=== PATIENT | female | born 1980 | race Caucasian/White ===

== ENCOUNTER 2020-08-17 16:29 | Emergency (ER) | payer OTHER ==
[2020-08-17 16:39] VITALS: BP 154/90; PULSE 100; RESP 18; TEMP 98
--- NOTE | 2020-08-17 16:45 | ED ---
General Adult HPI - General Chief complaint: Recheck/Abnormal Lab/Rx Stated complaint: ETOH Time Seen by Provider: 08/17/20 16:32 Source: patient, police, EMS, RN notes reviewed Mode of arrival: EMS Limitations: no limitations - History of Present Illness Initial comments: Patient is an intoxicated 39-year-old female presenting to the emergency department with [place] police for clearance for prison. Patient apparently was run around negative trying to break into her boyfriend store. Patient did complain of some shoulder discomfort. Upon questioning patient does admit to having some discomfort there. Patient is offered x-rays however refuses. Patient denies any head injury or loss of consciousness. Patient does admit to drinking alcohol. - Related Data Allergies Allergy/AdvReac Type Severity Reaction Status Date / Time No Known Allergies Allergy Verified 08/17/20 16:36 Review of Systems ROS Statement: Those systems with pertinent positive or pertinent negative responses have been documented in the HPI. ROS Other: All systems not noted in ROS Statement are negative. Constitutional: Denies: fever Eyes: Denies: eye pain ENT: Denies: ear pain Respiratory: Denies: cough Cardiovascular: Denies: chest pain Endocrine: Denies: fatigue Gastrointestinal: Denies: abdominal pain Genitourinary: Denies: dysuria Musculoskeletal: Reports: as per HPI. Denies: back pain Skin: Denies: rash Neurological: Denies: weakness Past Medical History Past Medical History: No Reported History History of Any Multi-Drug Resistant Organisms: None Reported Past Surgical History: No Surgical Hx Reported Past Psychological History: Anxiety, Depression Smoking Status: Unknown if ever smoked Past Alcohol Use History: Abuse, Daily, Heavy Past Drug Use History: None Reported General Exam Limitations: no limitations General appearance: alert, in no apparent distress, appears intoxicated Head exam: Present: atraumatic, normocephalic Eye exam: Present: normal appearance, PERRL, EOMI, nystagmus Neck exam: Present: normal inspection. Absent: tenderness Respiratory exam: Present: normal lung sounds bilaterally Cardiovascular Exam: Present: regular rate, normal rhythm GI/Abdominal exam: Present: soft. Absent: tenderness Extremities exam: Present: full ROM, tenderness (Mild tenderness right anterior shoulder without swelling. Distally the extremity is intact) Neurological exam: Present: alert, CN II-XII intact. Absent: motor sensory deficit Psychiatric exam: Present: normal affect, normal mood Skin exam: Present: normal color Course Vital Signs 08/17/20 16:36 Temperature 98 F Pulse Rate 100 Respiratory 18 Rate Blood Pressure 154/90 O2 Sat by Pulse 97 Oximetry Medical Decision Making - Medical Decision Making Patient reevaluated and sitting up at bedside. Officers do request clearance for prison. Disposition Clinical Impression: Alcohol intoxication, Shoulder injury Disposition: HOME SELF-CARE Condition: Stable Instructions (If sedation given, give patient instructions): Abuse of Alcohol (ED), Alcohol Intoxication (ED) Additional Instructions: Discharged to police custody. Return for change in mental status, shoulder problems, worsening or changing symptoms or other concerns. Is patient prescribed a controlled substance at d/c from ED?: No Referrals: Mars Huggins MD [REFERRING] - 1-2 days Time of Disposition: 16:50
== END 2020-08-17 17:00 | disposition home or self-care (01) ==
LOC: EC 16:29
DX: Z02.89 Encounter for other administrative examinations (principal); F10.129 Alcohol abuse with intoxication, unspecified; S49.91XA Unspecified injury of right shoulder and upper arm, initial encounter; X58.XXXA Exposure to other specified factors, initial encounter; Y90.9 Presence of alcohol in blood, level not specified
CPT/HCPCS: 99284

== ENCOUNTER 2020-10-16 03:02 | Inpatient (IN) | payer MEDICARE, OTHER ==
[2020-10-16] MEDS ORDERED: LORazepam 2 MG/ML INJ IV STA (03:07)
[2020-10-16 03:33] LABS: Anisocytosis Slight; Basophils # (A) 0.1 k/uL (0-0.2); Basophils % (A) 1 %; Eosinophils # (A) 0.2 k/uL (0-0.7); Eosinophils % (A) 2 %; HCT 30.4 % (34.0-46.0); HGB 9.1 gm/dL (11.4-16.0); Hypochromasia Marked; Lymphocytes # (A) 1.7 k/uL (1.0-4.8); Lymphocytes % (A) 21 %; MCH 23.2 pg (25.0-35.0); MCV 77.2 fL (80.0-100.0); Mean Platelet Volume 8.3; Microcytosis Slight; Monocytes # (A) 0.4 k/uL (0-1.0); Monocytes % (A) 4 %; Neutrophils # (A) 5.8 k/uL (1.3-7.7); Neutrophils % (A) 71 %; Platelet Count 116 k/uL (150-450); RBC 3.94 m/uL (3.80-5.40); RDW 18.2 % (11.5-15.5); WBC 8.2 k/uL (3.8-10.6)
[2020-10-16 03:38] LABS: AST 79 U/L (14-36); African American GFR (CKD) >90 (>60 ml/min/1.73 sqM); Albumin 4.2 g/dL (3.5-5.0); Alkaline Phosphatase 70 U/L (38-126); Anion Gap 16 mmol/L; Blood Urea Nitrogen 4 mg/dL (7-17); Calcium 8.8 mg/dL (8.4-10.2); Carbon Dioxide 13 mmol/L (22-30); Chloride 105 mmol/L (98-107); Glucose 139 mg/dL (74-99); Non-African American GFR(CKD) >90 (>60 ml/min/1.73 sqM); Potassium 3.8 mmol/L (3.5-5.1); Sodium 134 mmol/L (137-145); Total Bilirubin 0.3 mg/dL (0.2-1.3); Total Protein 7.3 g/dL (6.3-8.2)
[2020-10-16 03:44] LABS: ALT 49 U/L (4-34); INR 0.9 (<1.2); Prothrombin Time 9.9 sec (9.0-12.0)
--- NOTE | 2020-10-16 03:44 | CT ---
EXAM: CT Head Without Intravenous Contrast CLINICAL HISTORY: ITS.REASON CT Reason: trauma TECHNIQUE: Axial computed tomography images of the head/brain without intravenous contrast. CTDI is 12.985 mGy and DLP is 426.35 mGy-cm. This CT exam was performed using one or more of the following dose reduction techniques: automated exposure control, adjustment of the mA and/or kV according to patient size, and/or use of iterative reconstruction technique. COMPARISON: none available FINDINGS: Brain: Unremarkable. No hemorrhage. No significant white matter disease. No edema. Ventricles: Unremarkable. No ventriculomegaly. Bones/joints: Unremarkable. No acute fracture. Soft tissues: Right frontal scalp subcutaneous swelling measuring up to 6mm in thickness. Sinuses: Unremarkable as visualized. No acute sinusitis. Mastoid air cells: Unremarkable as visualized. No mastoid effusion. IMPRESSION: 1. No acute intracranial hemorrhage, herniation or hydrocephalus. 2. Right frontal scalp soft tissue swelling measuring up to 6mm in thickness. No calvarial fractures. No skull base fractures.
[2020-10-16 03:45] LABS: Partial Thromboplastin Time 20.8 sec (22.0-30.0)
--- NOTE | 2020-10-16 03:48 | CT ---
EXAM: CT Maxillofacial Without Intravenous Contrast CLINICAL HISTORY: ITS.REASON CT Reason: trauma TECHNIQUE: Axial computed tomography images of the face without intravenous contrast. CTDI is 12.985 mGy and DLP is 426.35 mGy-cm. This CT exam was performed using one or more of the following dose reduction techniques: automated exposure control, adjustment of the mA and/or kV according to patient size, and/or use of iterative reconstruction technique. COMPARISON: none available FINDINGS: Bones/joints: No acute facial fractures. No mandibular fractures. Bilateral temporomandibular joints are intact with no evidence of subluxation or dislocation. Pterygoid plates, zygomatic arches, maxillary jack are intact. Soft tissues: Unremarkable. Orbits: Orbits and globes are normal in appearance. No orbital wall fracture. Sinuses: Unremarkable. No air-fluid levels. IMPRESSION: No acute facial fractures.
[2020-10-16] MEDS ORDERED: SODIUM CHLORIDE 0.9% 1,000 ML IV ONE (04:02)
[2020-10-16] MEDS ORDERED: LORazepam 2 MG/ML INJ IV PRN (04:02)
[2020-10-16] MEDS ORDERED: THIAMINE 100 MG/ML 2 ML VIAL IM STA (04:02)
[2020-10-16] MEDS ORDERED: NALOXONE 0.4 MG/ML 1 ML VIAL IV PRN (05:52)
--- NOTE | 2020-10-16 05:52 | ED ---
Seizure HPI - General Chief Complaint: Seizure Stated Complaint: seizure Time Seen by Provider: 10/16/20 03:07 Source: patient, EMS Mode of arrival: EMS Limitations: altered mental status - History of Present Illness Initial Comments: This patient is a 39-year-old woman brought by ambulance to be evaluated for suspected alcohol withdrawal seizures. The patient reportedly drinks 25 12 ounce beers per day. She is staying with her boyfriend and they have been trying to wean her alcohol consumption back. The patient reportedly developed generalized tonic-clonic seizure lasting approximately 4 minutes and they called EMS. EMS arrived and the patient appeared post ictal and did have seizure in their presence. Minutes after arrival here, the patient did have another seizure. When initially seen she appears postictal not able to give any history . MD Complaint: seizure -: minutes(s) Description of Episode: loss of consciousness, tonic-clonic movement, post-event confusion -: minutes(s) Witnessed: yes - by bystander Trauma: No Seizure History: history of withdrawal seizures Place: home Possible Precipitating Event: alcohol withdrawal - Related Data Home Medications Medication Instructions Recorded Confirmed [place] Carbonate ER [Lithobid] 450 mg PO BID 10/16/20 10/16/20 PARoxetine HCL [Paxil] 30 mg PO DAILY 10/16/20 10/16/20 lamoTRIgine [LaMICtal] 150 mg PO BID 10/16/20 10/16/20 Allergies Allergy/AdvReac Type Severity Reaction Status Date / Time No Known Allergies Allergy Verified 10/16/20 07:57 Review of Systems ROS Statement: Those systems with pertinent positive or pertinent negative responses have been documented in the HPI. ROS Other: All systems not noted in ROS Statement are negative. Limitations: ROS unobtainable due to patients medical condition Constitutional: Denies: fever Respiratory: Denies: dyspnea Past Medical History Past Medical History: No Reported History History of Any Multi-Drug Resistant Organisms: None Reported Past Surgical History: No Surgical Hx Reported Past Psychological History: Anxiety, Depression Smoking Status: Unknown if ever smoked Past Alcohol Use History: Abuse, Daily, Heavy Past Drug Use History: None Reported General Exam Limitations: no limitations General appearance: obtunded Head exam: Present: other (The patient does have bilateral periorbital ecchymo sis and mild amount of swelling.) Eye exam: Present: PERRL, EOMI, periorbital swelling. Absent: scleral icterus, conjunctival injection, nystagmus ENT exam: Present: normal oropharynx, TM's normal bilaterally, normal external ear exam Neck exam: Present: normal inspection, full ROM. Absent: tenderness, meningismus Respiratory exam: Present: rhonchi, chest wall tenderness (Left-sided). Absent: respiratory distress, wheezes, rales, stridor, accessory muscle use, decreased breath sounds, prolonged expiratory Cardiovascular Exam: Present: normal rhythm, tachycardia, normal heart sounds. Absent: systolic murmur, diastolic murmur, rubs, gallop GI/Abdominal exam: Present: soft. Absent: distended, tenderness, guarding, rebound, rigid, mass Extremities exam: Present: normal inspection, normal capillary refill. Absent: pedal edema, calf tenderness Back exam: Present: normal inspection. Absent: CVA tenderness (R), CVA tenderness (L), vertebral tenderness Neurological exam: Present: altered, CN II-XII intact, reflexes normal. Absent: motor sensory deficit Skin exam: Present: warm, dry, intact, normal color. Absent: rash Course Vital Signs 10/16/20 10/16/20 10/16/20 03:05 03:48 04:24 Temperature 97.8 F Pulse Rate 129 H 124 H 130 H Respiratory 22 18 18 Rate Blood Pressure 179/100 138/87 137/91 O2 Sat by Pulse 100 94 L 99 Oximetry 10/16/20 07:31 Temperature 98.4 F Pulse Rate 98 Respiratory 16 Rate Blood Pressure 112/93 O2 Sat by Pulse 95 Oximetry Medical Decision Making - Medical Decision Making This patient is a 39-year-old woman with history of previous alcohol withdrawal seizures presenting with what appears to be generalized tonic-clonic seizure. After a period of time she has become alert and she does report that she had a fall a few days ago. She states she landed on her face. She also is having some left sided rib pain. Patient was worked up and there do appear to be left-sided rib fractures, but the patient does not district clinic. Patient is satting well. Case is discussed with trauma surgery coverage and they're okay with clearing the patient to go to medicine for alcohol withdrawal. They will be available as product safety consultant on the case should that be necessary. There is no evident intracranial or intra-abdominal injury. - Lab Data Result diagrams: 10/16/20 03:18 10/16/20 03:18 Lab Results 10/16/20 10/16/20 10/16/20 Range/Units 03:18 03:18 03:18 WBC 8.2 (3.8-10.6) k/uL RBC 3.94 (3.80-5.40) m/uL Hgb 9.1 L (11.4-16.0) gm/dL Hct 30.4 L (34.0-46.0) % MCV 77.2 L (80.0-100.0) fL MCH 23.2 L (25.0-35.0) pg MCHC 30.0 L (31.0-37.0) g/dL RDW 18.2 H (11.5-15.5) % Plt Count 116 L (150-450) k/uL MPV 8.3 Neutrophils % 71 % Lymphocytes % 21 % Monocytes % 4 % Eosinophils % 2 % Basophils % 1 % Neutrophils # 5.8 (1.3-7.7) k/uL Lymphocytes # 1.7 (1.0-4.8) k/uL Monocytes # 0.4 (0-1.0) k/uL Eosinophils # 0.2 (0-0.7) k/uL Basophils # 0.1 (0-0.2) k/uL Hypochromasia Marked Anisocytosis Slight Microcytosis Slight PT 9.9 (9.0-12.0) sec INR 0.9 (<1.2) APTT 20.8 L (22.0-30.0) sec Sodium 134 L (137-145) mmol/L Potassium 3.8 (3.5-5.1) mmol/L Chloride 105 (98-107) mmol/L Carbon Dioxide 13 L (22-30) mmol/L Anion Gap 16 mmol/L BUN 4 L (7-17) mg/dL Creatinine 0.53 (0.52-1.04) mg/dL Est GFR (CKD-EPI)AfAm >90 (>60 ml/min/1.73 sqM) Est GFR (CKD-EPI)NonAf >90 (>60 ml/min/1.73 sqM) Glucose 139 H (74-99) mg/dL Calcium 8.8 (8.4-10.2) mg/dL Total Bilirubin 0.3 (0.2-1.3) mg/dL AST 79 H (14-36) U/L ALT 49 H (4-34) U/L Alkaline Phosphatase 70 (38-126) U/L Ammonia (<30) umol/L Total Protein 7.3 (6.3-8.2) g/dL Albumin 4.2 (3.5-5.0) g/dL 10/16/20 Range/Units 03:18 WBC (3.8-10.6) k/uL RBC (3.80-5.40) m/uL Hgb (11.4-16.0) gm/dL Hct (34.0-46.0) % MCV (80.0-100.0) fL MCH (25.0-35.0) pg MCHC (31.0-37.0) g/dL RDW (11.5-15.5) % Plt Count (150-450) k/uL MPV Neutrophils % % Lymphocytes % % Monocytes % % Eosinophils % % Basophils % % Neutrophils # (1.3-7.7) k/uL Lymphocytes # (1.0-4.8) k/uL Monocytes # (0-1.0) k/uL Eosinophils # (0-0.7) k/uL Basophils # (0-0.2) k/uL Hypochromasia Anisocytosis Microcytosis PT (9.0-12.0) sec INR (<1.2) APTT (22.0-30.0) sec Sodium (137-145) mmol/L Potassium (3.5-5.1) mmol/L Chloride (98-107) mmol/L Carbon Dioxide (22-30) mmol/L Anion Gap mmol/L BUN (7-17) mg/dL Creatinine (0.52-1.04) mg/dL Est GFR (CKD-EPI)AfAm (>60 ml/min/1.73 sqM) Est GFR (CKD-EPI)NonAf (>60 ml/min/1.73 sqM) Glucose (74-99) mg/dL Calcium (8.4-10.2) mg/dL Total Bilirubin (0.2-1.3) mg/dL AST (14-36) U/L ALT (4-34) U/L Alkaline Phosphatase (38-126) U/L Ammonia <9 (<30) umol/L Total Protein (6.3-8.2) g/dL Albumin (3.5-5.0) g/dL Disposition Clinical Impression: Alcohol withdrawal seizure, Rib fractures Disposition: ADMITTED IP TO THIS HOSP Condition: Fair Is patient prescribed a controlled substance at d/c from ED?: No
[2020-10-16] MEDS: LORazepam 2 MG/ML INJ IV PRN ×3 (06:03→22:24)
[2020-10-16] MEDS: SODIUM CHLORIDE 0.9% 1,000 ML IV SCH ×3 (06:03→22:26)
[2020-10-16 06:10] LABS: Appearance,Urine Clear (Clear); Bilirubin,Urine Negative (Negative); Blood,Urine Small (Negative); Color,Urine Light Yellow; Glucose,Urine (UA) Negative (Negative); Hyaline Casts,Urine 1 /lpf (0-2); Ketones,Urine 1+ (Negative); Leukocyte Esterase,Urine Negative (Negative); Mucus,Urine Occasional /hpf; Nitrite,Urine Negative (Negative); PH, Urine 5.5 (5.0-8.0); Protein,Urine Trace (Negative); RBC,Urine <1 /hpf (0-5); Specific Gravity,Urine 1.011 (1.001-1.035); Squamous Epithelial Cell,Urine <1 /hpf (0-4); Urobilinogen,Urine <2.0 mg/dL (<2.0); WBC,Urine 1 /hpf (0-5)
[2020-10-16 06:20] LABS: Amphetamine Screen,Urine Not Detected (NotDetected); Barbiturate Screen,Urine Not Detected (NotDetected); Benzodiazepines Screen,Urine Detected (NotDetected); Cocaine Screen,Urine Not Detected (NotDetected); Methadone Screen, Urine Not Detected (NotDetected); Opiate Screen,Urine Not Detected (NotDetected); Oxycodone Screen, Urine Not Detected (NotDetected); Phencyclidine Screen,Urine Not Detected (NotDetected); Tricyclic Antidepressant,Urine Detected (NotDetected); Urn Cannabinoid Scrn Not Detected (NotDetected)
--- NOTE | 2020-10-16 06:47 | XR ---
EXAMINATION TYPE: XR ribs LT w pa chest xray DATE OF EXAM: 10/16/2020 CLINICAL HISTORY: Fall injury with chest and left-sided rib pain. TECHNIQUE: Single frontal view of the chest is obtained. A frontal and oblique images of the left-sim ed ribs. COMPARISON: None FINDINGS: There is no suspicious focal air space opacity, pleural effusion, or pneumothorax seen. T he cardiac silhouette size is within normal limits. The osseous structures are intact. Dedicated images of left-sided ribs show age-indeterminate suspected acute minimally displaced fractu re of the anterolateral left 10th rib. Remainder ribs intact. Overlying soft tissue unremarkable. IMPRESSION: 1. No acute cardiopulmonary process. 2. Age-indeterminate suspected acute minimally displaced fracture anterolateral left 10th rib, correl ate with point tenderness at this level advised.
--- NOTE | 2020-10-16 07:33 | CT ---
EXAMINATION TYPE: CT abdomen pelvis w con DATE OF EXAM: 10/16/2020 HISTORY: Trauma, alcohol withdrawal seizure CT DLP: 647mGycm Automated Exposure Control for Dose Reduction was Utilized. CONTRAST: CT scan of the abdomen and pelvis is performed without oral but with IV Contrast, patient injected wi th 100 ml mL of Isovue 300. COMPARISON: None. FINDINGS: LUNG BASES: Dependent atelectasis in both bases. LIVER/GB: Liver is heterogeneously hypodense consistent with diffuse fatty infiltration. PANCREAS: No significant abnormality is seen. SPLEEN: No significant abnormality is seen. ADRENALS: No significant abnormality is seen. KIDNEYS: Symmetric cortical medullary uptake and excretion without hydronephrosis seen bilaterally. BOWEL: No suspicious small or large bowel dilatation area UTERUS/ADNEXA: Anteverted uterus. Central metallic IUD. Symmetric-size low dense ovaries. Scattered b ilateral pelvic phleboliths. LYMPH NODES: No greater than 1cm abdominal or pelvic lymph nodes are appreciated. OSSEOUS STRUCTURES: Underlying levoconvex scoliotic curvature. Transitional-type vertebra at lumbosac ral junction. OTHER: No significant additional abnormality is seen. IMPRESSION: No significant acute posttraumatic finding.
[2020-10-16] MEDS: FAMOTIDINE 20 MG TAB PO SCH ×2 (08:46→22:21)
--- NOTE | 2020-10-16 11:00 | P.HPIM ---
History of Present Illness H&P Date: 10/16/20 Chief Complaint: Seizures Patient is a 39-year-old female with a known history of severe alcohol abuse, anxiety/depression/bipolar disorder who was taking antidepressants previously was brought to the hospital due to suspected alcohol withdrawal seizures. Apparently patient has been drinking about 25 Beer cans on daily basis. Patient has been trying to detox herself. Patient otherwise says that she is taking her antidepressants. EMS was called and she developed generalized tonic-clonic seizures. Patient had episode of generalized tonic-clonic seizure in the ER. P atient was postictal in the ER. Currently more awake and oriented. Apparently patient had a fall about 2 days ago due to intoxication and had right eye ecchymosis and bump on her right forehead. Denied any complaints of headache. No complaints of nausea vomiting. No complains of neck pain. No fever no chills. Denied any recent illnesses. Denied any recent illnesses. Laboratory data showed WBC 8.2, hemoglobin 9.1 and platelets 116 and MCV 77.2 Sodium 134, potassium 3.8, bicarb is 13 BN 4) 0.53, AST 79, AST 49 and alk phos 70 UDS is positive for tricyclic antidepressants and benzodiazepines., CT head showed no acute intracranial hemorrhage. Right frontal scalp soft tissue swelling measuring up to 6 mm in thickness. radial fractures. no skull base fractures. ct face showed no acute facial fractures. tube and chest x-ray showed no acute cardio pulmonary process. age indetermina te suspected acute minimally displaced fracture anterolateral left 10th rib correlate with point tenderness at this level advised. ct abdomen pelvis showed no significant acute traumatic findings. Review of Systems Constitutional: Patient denies any fever or chills . No generalized weakness or weight loss. Abdomen: Patient denied nausea vomiting and diarrhea and abdominal pain. Cardiovascular: Patient denies any chest pain or short of breath no p alpitations. Respiratory: patient denied any cough is from production. No shortness of breath. Tenderness of the left lower case. Neurologic: Patient denied any numbness or tingling headache. Musculoskeletal: Patient denies any complaints of joint swelling or deformity. Skin: Negative Psychiatric: Denied any suicidal ideation. Anxious. Endocrine: No heat or cold intolerance. No recent weight gain. Genitourinary: No dysuria or hematuria. All other 14 point ROS negative except the above Past Medical History Past Medical History: No Reported History History of Any Multi-Drug Resistant Organisms: None Reported Past Surgical History: No Surgical Hx Reported Past Anesthesia/Blood Transfusion Reactions: No Reported Reaction Past Psychological History: Anxiety, Depression Smoking Status: Unknown if ever smoked Past Alcohol Use History: Abuse, Daily, Heavy Past Drug Use History: None Reported - Past Family History Father Family Medical History: Unable to Obtain Mother Family Medical History: Unable to Obtain Medications and Allergies Home Medications Medication Instructions Recorded Confirmed Type [place] Carbonate ER [Lithobid] 450 mg PO BID 10/16/20 10/16/20 History PARoxetine HCL [Paxil] 30 mg PO DAILY 10/16/20 10/16/20 History clonazePAM [KlonoPIN] 1 mg PO BID PRN 10/16/20 10/16/20 History lamoTRIgine [LaMICtal] 150 mg PO BID 10/16/20 10/16/20 History Allergies Allergy/AdvReac Type Severity Reaction Status Date / Time No Known Allergies Allergy Verified 10/16/20 07:57 Physical Exam Vitals: Vital Signs Temp Pulse Pulse Resp BP BP Pulse Ox 10/16/20 09:49 122/91 10/16/20 08:00 98.6 F 94 14 132/106 98 10/16/20 07:31 98.4 F 98 16 112/93 95 10/16/20 04:24 130 H 18 137/91 99 10/16/20 03:48 124 H 18 138/87 94 L 10/16/20 03:05 97.8 F 129 H 22 179/100 100 Intake and Output 10/15/20 10/16/20 10/16/20 22:59 06:59 14:59 Intake Total 0 Balance 0 Intake: Oral 0 Other: Weight 81.647 kg 81.647 kg PHYSICAL EXAMINATION: Patient is lying in the bed comfortably, no acute distress, awake alert and oriented. Patient is lethargic and drowsy.. HEENT: Normocephalic. Neck is supple. Pupils reactive. Nostrils clear. Oral cavity is moist. Ears reveal no drainage. Patient does have right eye ecchymosis and soft tissue swelling over the right forehead. Neck reveals no JVD, carotid bruits, or thyromegaly. CHEST EXAMINATION: Trachea is central. Symmetrical expansion. Bibasilar diminished air entry. No wheezing no crackles. Tenderness over the left lower rib cage.. CARDIAC: Normal S1, S2 with no gallops. No murmurs ABDOMEN: Soft. Bowel sounds normal. No organomegaly. No abdominal bruits. Extremities: reveal no edema. No clubbing or cyanosis Neurologically awake, alert, oriented x3 with well-coordinated movements. Drowsy. No focal deficits noted Skin: No rash or skin lesions. Psychiatric: Coperative. Nonsuicidal Musculoskeletal: No joint swelling or deformity. Normal range of motion. Results CBC & Chem 7: 10/16/20 03:18 10/16/20 03:18 Labs: Abnormal Lab Results - Last 24 Hours (Table) 10/16/20 10/16/20 10/16/20 Range/Units 03:18 03:18 03:18 Hgb 9.1 L (11.4-16.0) gm/dL Hct 30.4 L (34.0-46.0) % MCV 77.2 L (80.0-100.0) fL MCH 23.2 L (25.0-35.0) pg MCHC 30.0 L (31.0-37.0) g/dL RDW 18.2 H (11.5-15.5) % Plt Count 116 L (150-450) k/uL APTT 20.8 L (22.0-30.0) sec Sodium 134 L (137-145) mmol/L Carbon Dioxide 13 L (22-30) mmol/L BUN 4 L (7-17) mg/dL Glucose 139 H (74-99) mg/dL AST 79 H (14-36) U/L ALT 49 H (4-34) U/L Urine Protein (Negative) Urine Ketones (Negative) Urine Blood (Negative) Urine Mucus (None) /hpf U Tricyclic Antidepress (NotDetected) U Benzodiazepines Scrn (NotDetected) 10/16/20 Range/Units 05:58 Hgb (11.4-16.0) gm/dL Hct (34.0-46.0) % MCV (80.0-100.0) fL MCH (25.0-35.0) pg MCHC (31.0-37.0) g/dL RDW (11.5-15.5) % Plt Count (150-450) k/uL APTT (22.0-30.0) sec Sodium (137-145) mmol/L Carbon Dioxide (22-30) mmol/L BUN (7-17) mg/dL Glucose (74-99) mg/dL AST (14-36) U/L ALT (4-34) U/L Urine Protein Trace H (Negative) Urine Ketones 1+ H (Negative) Urine Blood Small H (Negative) Urine Mucus Occasional H (None) /hpf U Tricyclic Antidepress Detected H (NotDetected) U Benzodiazepines Scrn Detected H (NotDetected) Thrombosis Risk Factor Assmnt - DVT/VTE Prophylaxis DVT/VTE Prophylaxis: Pharmacologic Prophylaxis ordered - Choose All That Apply Any of the Below Risk Factors Present?: Yes Each Factor Represents 1 point: Age 41-60 years, Obesity (BMI >25) Thrombosis Risk Factor Assessment Total Risk Factor Score: 2 Thrombosis Risk Factor Assessment Level: Low Risk Assessment and Plan Assessment: acute alcohol withdrawal seizures-generalized tonic-clonic. Severe alcohol abuse on daily basis. Status post fall and minimally displaced fracture anterolateral left 10th rib age indeterminate. Mild and gap metabolic acidosis Mild transaminitis/alcoholic hepatitis Microcytic anemia rule out iron deficiency Thrombocytopenia secondary to alcohol abuse Anxiety/depression/bipolar disorder DVT prophylaxis with heparin subcu Plan: Patient be continued on IV hydration and thiamine and multivitamins. Seizures and fall precautions. Monitor for alcohol withdrawal symptoms. Patient will be started back on home medications and follow closely. We'll check iron profile, vitamin B12 and TSH level due t0 anemia. Follow up closely and further recommendations based on the clinical course. Follow-up CBC and CMP tomorrow. Time with Patient: Greater than 30
[2020-10-16] MEDS ORDERED: SODIUM CHLORIDE 0.9% 1,000 ML with MVI, ADULT NO.4 WITH VIT K 10 ML, THIAMINE 100 MG, F... IV ONE ×4 (11:02)
[2020-10-16] MEDS: FOLIC ACID 1 MG TAB PO SCH (11:12)
[2020-10-16] MEDS: THIAMINE 100 MG TAB PO SCH (12:32)
[2020-10-16] MEDS: HEPARIN SODIUM,PORCINE 5,000 UNIT/ML 1 ML VIAL SQ SCH ×2 (14:43→22:34)
[2020-10-16] MEDS ORDERED: KETOROLAC 15 MG/ML 1 ML VIAL IVP STA (15:44)
[2020-10-16] MEDS ORDERED: ONDANSETRON 4 MG/2 ML VIAL IVP PRN (15:45)
[2020-10-17] MEDS: THIAMINE 100 MG TAB PO SCH ×2 (06:15→17:19)
[2020-10-17] MEDS: SODIUM CHLORIDE 0.9% 1,000 ML IV SCH ×3 (06:15→22:03)
[2020-10-17 08:20] LABS: African American GFR (CKD) >90 (>60 ml/min/1.73 sqM); Anion Gap 5 mmol/L; Blood Urea Nitrogen 2 mg/dL (7-17); Carbon Dioxide 22 mmol/L (22-30); Chloride 109 mmol/L (98-107); Glucose 75 mg/dL (74-99); Non-African American GFR(CKD) >90 (>60 ml/min/1.73 sqM); Potassium 3.3 mmol/L (3.5-5.1); Sodium 136 mmol/L (137-145)
[2020-10-17] MEDS: FOLIC ACID 1 MG TAB PO SCH (08:31)
[2020-10-17] MEDS: LORazepam 2 MG/ML INJ IV PRN ×3 (08:31→20:02)
[2020-10-17] MEDS: FAMOTIDINE 20 MG TAB PO SCH ×2 (08:31→20:03)
[2020-10-17] MEDS: HEPARIN SODIUM,PORCINE 5,000 UNIT/ML 1 ML VIAL SQ SCH ×3 (08:37→23:39)
[2020-10-17 08:42] LABS: Anisocytosis Slight; Basophils % (A) 1 %; Eosinophils # (A) 0.2 k/uL (0-0.7); Eosinophils % (A) 6 %; HGB 8.3 gm/dL (11.4-16.0); Hypochromasia Marked; Lymphocytes # (A) 0.7 k/uL (1.0-4.8); Lymphocytes % (A) 21 %; MCH 22.9 pg (25.0-35.0); MCHC 29.8 g/dL (31.0-37.0); MCV 76.9 fL (80.0-100.0); Mean Platelet Volume 9.3; Microcytosis Slight; Monocytes # (A) 0.1 k/uL (0-1.0); Monocytes % (A) 4 %; Neutrophils # (A) 2.4 k/uL (1.3-7.7); Neutrophils % (A) 68 %; RBC 3.65 m/uL (3.80-5.40); RDW 18.2 % (11.5-15.5); WBC 3.5 k/uL (3.8-10.6)
[2020-10-17 09:04] LABS: Platelet Count 96 k/uL (150-450); Poikilocytosis (M) Present
[2020-10-17] MEDS: METOPROLOL TARTRATE 25 MG TAB PO SCH ×2 (11:37→20:09)
--- NOTE | 2020-10-17 12:49 | P.PN ---
Subjective 39-year-old female with a known history of severe alcohol abuse, anxiety/depression/bipolar disorder who was taking antidepressants previously was brought to the hospital due to suspected alcohol withdrawal seizures. Apparently patient has been drinking about 25 Beer cans on daily basis. Patient has been trying to detox herself. Patient otherwise says that she is taking her antidepressants. EMS was called and she developed generalized tonic-clonic seizures. Patient had episode of generalized tonic-clonic seizure in the ER. Patient was postictal in the ER. Currently more awake and oriented. Apparently patient had a fall about 2 days ago due to intoxication and had right eye ecchymosis and bump on her right forehead. Denied any complaints of headache. No complaints of nausea vomiting. No complains of neck pain. No fever no chi lls. Denied any recent illnesses. Denied any recent illnesses. Laboratory data showed WBC 8.2, hemoglobin 9.1 and platelets 116 and MCV 77.2 Sodium 134, potassium 3.8, bicarb is 13 BN 4) 0.53, AST 79, AST 49 and alk phos 70 UDS is positive for tricyclic antidepressants and benzodiazepines., CT head showed no acute intracranial hemorrhage. Right frontal scalp soft tissue swelling measuring up to 6 mm in thickness. radial fractures. no skull base fractures. ct face showed no acute facial fractures. tube and chest x-ray showed no acute cardio pulmonary process. age indeterminate suspected acute minimally displaced fracture anterolateral left 10th rib correlate with point tenderness at this level advised. ct abdomen pelvis showed no significant acute traumatic findings. 10/17/2019 Patient received Ativan today morning. Although doesn't have significant alcohol withdrawals. Considering his seizures I want to monitor 1 more night for alcohol withdrawals and the patient is not requiring sick Ativan patient will be discharged tomorrow. Patient has some elevated blood abnormalities and those will be replaced patient is tachycardic probably because of alcohol withdrawals and the patient was started on low-dose of metoprolol as clonidine will drop her blood pressure which is normal now. TSH is be within normal limits. Patient feels much better. Constitutional: Denied any fatigue denied any fever. Cardio vascular: denied any chest pain, palpitations Gastrointestinal denied any nausea vomiting Pulmonary: Denied any shortness of breath cough Neurologic denied any new focal deficits All inpatient medications were reviewed and appropriate changes in these medications as dictated in the interval history and assessment and plan. Objective - Vital Signs Vital signs: Vital Signs Temp 98.6 F 10/17/20 11:45 Pulse 84 10/17/20 11:45 Resp 16 10/17/20 11:45 BP 143/91 10/17/20 11:45 Pulse Ox 97 10/17/20 11:45 Intake & Output 10/16/20 10/17/20 10/17/20 18:59 06:59 18:59 Intake Total 1000 Balance 1000 Weight 81.647 kg 61.4 kg Intake: IV 1000 Sodium Chloride 0.9% 1, 1000 000 ml @ 125 mls/hr IV . Q8H [facility] Rx#:[id number] Oral 0 Other: Voiding Method Toilet Toilet # Voids 1 # Bowel Movements 0 - Exam PHYSICAL EXAMINATION: GENERAL: The patient is alert and oriented x3, not in any acute distress. Well developed, well nourished. HEENT: Pupils are round and equally reacting to light. EOMI. No scleral icterus. No conjunctival pallor. She and has racoon because of her fall and patient had a scalp injury as well. No pharyngeal erythema. No thyromegaly. CARDIOVASCULAR: S1 and S2 present. No murmurs, rubs, or gallops. PULMONARY: Chest is clear to auscultation, no wheezing or crackles. ABDOMEN: Soft, nontender, nondistended, normoactive bowel sounds. No palpable organomegaly. MUSCULOSKELETAL: No joint swelling or deformity. EXTREMITIES: No cyanosis, clubbing, or pedal edema. NEUROLOGICAL: Gross neurological examination did not reveal any focal deficits. SKIN: No rashes. - Labs CBC & Chem 7: 10/17/20 07:11 10/17/20 07:11 Labs: Abnormal Lab Results - Last 24 Hours (Table) 10/17/20 10/17/20 Range/Units 07:11 07:11 WBC 3.5 L (3.8-10.6) k/uL RBC 3.65 L (3.80-5.40) m/uL Hgb 8.3 L (11.4-16.0) gm/dL Hct 28.0 L (34.0-46.0) % MCV 76.9 L (80.0-100.0) fL MCH 22.9 L (25.0-35.0) pg MCHC 29.8 L (31.0-37.0) g/dL RDW 18.2 H (11.5-15.5) % Plt Count 96 L (150-450) k/uL Lymphocytes # 0.7 L (1.0-4.8) k/uL Sodium 136 L (137-145) mmol/L Potassium 3.3 L (3.5-5.1) mmol/L Chloride 109 H (98-107) mmol/L BUN 2 L (7-17) mg/dL Creatinine 0.46 L (0.52-1.04) mg/dL Calcium 8.0 L (8.4-10.2) mg/dL Assessment and Plan Plan: acute alcohol withdrawal seizures-generalized tonic-clonic. Severe alcohol abuse on daily basis. Status post fall and minimally displaced fracture anterolateral left 10th rib age indeterminate. Mild and gap metabolic acidosis secondary to alcohol abuse Mild transaminitis/alcoholic hepatitis Microcytic anemia rule out iron deficiency Thrombocytopenia and pancytopenia secondary to alcohol abuse Anxiety/depression/bipolar disorder DVT prophylaxis with heparin subcu Plan: Patient be continued on IV hydration and thiamine and multivitamins. Seizures and fall precautions. Monitor for alcohol withdrawal symptoms. Patient will be started back on home medications and follow closely. We'll check iron profile, vitamin B12 level due t0 anemia. Pending TSH is within normal limits. Patient will be monitored for 1 more night. Patient is still requiring Ativan.
[2020-10-17 15:09] LABS: % Iron Saturation 11.43 (12.00-45.00); Iron 40 ug/dL (50-170); Total Iron Binding Capacity 350 ug/dL (228-460)
[2020-10-17 15:18] LABS: Ferritin 23.7 ng/mL (10.0-291.0)
[2020-10-17] MEDS: chlordiazePOXIDE 25 MG CAP PO SCH ×2 (15:42→20:03)
[2020-10-17] MEDS: lamoTRIgine 25 MG TAB PO SCH ×2 (15:42→20:03)
[2020-10-17 16:33] VITALS: RESP 18
--- NOTE | 2020-10-17 16:35 | P.CN ---
Psychiatric Consult - . Consult date: 10/17/20 Consult:: 10/17/20 13:51 IDENTIFYING DATA: This patient is a 39-year-old female with a chronic history of alcohol use disorder and bipolar disorder, who currently lives in an apartment is single has no kids and is unemployed. REASON FOR REFERRAL: Psychiatry was consulted for bipolar, alcohol use and patient stopping taking her meds. HISTORY OF PRESENT ILLNESS: The patient presented to the hospital for alcohol withdrawal seizures. Patient has a chronic history of bipolar disorder and alcohol use. She reported in the ER that she was drinking approximately 25 beers a day and try to "detox herself" at home however ended up having a tonic- clonic seizure and EMS was called and patient apparently had another seizure in the ER. Patient's CT head was negative for any acute hemorrhages and any fractures however did show soft scalp swelling. Patient's LFTs were mildly elevated UDS was positive for benzodiazepine TCAs and tachycardic. Patient was seen on the medical floors and is currently on [facility] protocol for alcohol withdrawal. She appeared to have bruising over her face and states that she has been feeling depressed. She claims that she is also been having anxiety due to her withdrawal from alcohol. She states that her last drink was 2 hours before she had a seizure before coming into the hospital. She states that she has been drinking a proximally 6 beers a day. She claims that she was dealing with a broken rib as well. She claims that she has been having difficulties initiating sleep and currently having mild tremors and nausea from the alcohol withdrawal however denies any other signs of DTs. She states that she ran out of her lithium however has been taking her other medications at home for psychiatric symptoms. At this time patient denies any suicidal or homical ideations, intent or plan. Patient denies any auditory, visual hallucinations and denies any paranoia or delusions. Patients admits to using alcohol as noted above. She states that she has been drinking alcohol for approximately 2 decades now and has been to rehab and outpatient programs several times. She denies any other recreational drug use denies any cigarette use. PAST PSYCHIATRIC HISTORY: Patient has a a history of bipolar disorder depression and alcohol abuse. patient claims that she has been on lithium in the past, Paxil and Klonopin. patient admitted to several psychiatric admissions in the past at different. she claims that she is to follow-up with a psychiatrist several years ago however states that he has tired since then. she claims that she has had 3 suicide including overdosing and also trying to suffocate herself in the garage with carbon monoxide. PAST MEDICAL HISTORY: anemia and fatty liver ALLERGIES: as per EMR. CHEMICAL DEPENDENCY HISTORY: as per HPI. FAMILY PSYCHIATRIC/SUBSTANCE USE HISTORY: she states that she has a strong family history of alcohol abuse. SOCIAL HISTORY: Patient was born and raised in [place], [place] and states that she attended college and completed her master's degree in business. 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 she is currently single lives in an alone and has no kids. She claims that she has had 2 DUIs in the past and also had a charge for drunk and MENTAL STATUS EXAM: General Appearance: Patient appears to be stated age is lethargic, pleasant, and attempts to be cooperative. Patient appears to have poor hygiene and grooming wearing hospital gown with [fair] eye contact. She has bruising over her eyes and forehead. Behavior: [Patient is calmly lying in bed without any agitated behavior.] timid Speech: Patient's speech is fluent and nonpressured. soft tone of voice Mood/Affect: Patient reports their mood is "depressed", affect is congruent and constricted Suicidality/Homicidality: Patient denies having any suicidal or homicidal ideation intent or plan. Perceptions: Patient denies any visual hallucinations [and denies any auditory hallucinations] Though content/process: There is no evidence of any delusional thought content and thought process is linear and goal-directed. minimizing her etoh use. Memory and concentration: AOX3, grossly intact for the purposes of this session. Can spell "WORLD" backwards Judgment and insight: [poor] IMPRESSIONS: bipolar disorder, currently depressed Alcohol use disorder, severe, currently in withdrawal PLAN: -At this time patient will continue to follow along to determine if patient would meet criteria for inpatient psych vs. outpatient treatment vs. substance use rehab. -Would recommend the following medication changes/additions: Librium 25mg bid for etoh withdrawal along with CIWA protocol and Ativan prn. Patient is agreeable to restart Lamictal 25 mg twice a day for bipolar depression/mood stabilization. can continue Paxil 30 mg nightly for mood/anxiety. Petroleum Transport Driver also offered patient naltrexone vs. acamprosate for etoh cravings however patient states that she would like to think about it overnight. -harvest worker field crop to provide patient with outpatient mental health/psychiatry resources for appropriate follow up upon discharge if patient is discharged directly from the medical floors. -Petroleum Transport Driver spoke with patient about substance abuse and the harmful effects on medical and mental health, patient verbally understood and agreed. -harvest worker field crop to provide patient substance use treatment resources including AA/NA meetings in the community. harvest worker field crop to provide patient with access line number to call for inpatient substance rehab. -Petroleum Transport Driver spoke with patient about rehab vs. outpatient treatment and patient claims that she would like to think about it overnight. -Will continue to follow along and see patient tomorrow to see if she would need to admitted to psych or can be discharged. -Please contact with any questions.
[2020-10-17] MEDS ORDERED: PARoxetine 10 MG TAB PO SCH (21:00)
[2020-10-17 21:54] VITALS: BP 141/98; PULSE 90; TEMP 98.7
--- NOTE | 2020-10-20 12:58 | P.DS ---
Providers Date of admission: 10/16/20 05:52 Expected date of discharge: 10/17/20 Attending physician: Chey Camacho Consults: 10/16/20 10:20 Consult Physician Routine Consulting Provider: Tavo Blanco Consult Reason/Comments: etoh, bipolar - stopped taking medications Do you want consulting provider notified?: Already Contacted Primary care physician: Stated None Hospital Course: Left AGAINST MEDICAL ADVICE Patient Condition at Discharge: Fair Plan - Discharge Summary Discharge Rx Participant: No New Discharge Prescriptions: No Action PARoxetine HCL [Paxil] 30 mg PO DAILY [place] Carbonate ER [Lithobid] 450 mg PO BID lamoTRIgine [LaMICtal] 150 mg PO BID clonazePAM [KlonoPIN] 1 mg PO BID PRN PRN Reason: panic attacks Discharge Medication List [place] Carbonate ER [Lithobid] 450 mg PO BID 10/16/20 [History] PARoxetine HCL [Paxil] 30 mg PO DAILY 10/16/20 [History] clonazePAM [KlonoPIN] 1 mg PO BID PRN 10/16/20 [History] lamoTRIgine [LaMICtal] 150 mg PO BID 10/16/20 [History] Follow up Appointment(s)/Referral(s): None,Stated [Primary Care Provider] - 1-2 days Discharge Disposition: Left Against Medical Advice
== END 2020-10-17 23:59 | disposition left against medical advice (07) | DRG 101 ==
LOC: EC 03:02 → 3SCARD 05:52
PROVIDERS: ADMIT Internal Medicine; ATTEND Internal Medicine
DX: G40.509 Epileptic seizures related to external causes, not intractable, without status epilepticus (principal); S22.42XA Multiple fractures of ribs, left side, initial encounter for closed fracture; F10.239 Alcohol dependence with withdrawal, unspecified; E87.2 Acidosis; D50.9 Iron deficiency anemia, unspecified; D69.59 Other secondary thrombocytopenia; K70.10 Alcoholic hepatitis without ascites; F41.9 Anxiety disorder, unspecified; F31.9 Bipolar disorder, unspecified; S05.11XA Contusion of eyeball and orbital tissues, right eye, initial encounter; Z79.899 Other long term (current) drug therapy; Z91.5 Personal history of self-harm; Z60.2 Problems related to living alone; Z88.0 Allergy status to penicillin
CPT/HCPCS: 36415; 70450; 70486; 74177; 80048; 80053; 80306; 81001; 81025; 82140; 82607; 82728; 83540; 83550; 84443; 85025; 85610; 85730; 96361; 96372; 96374; 99285

== ENCOUNTER 2020-12-06 06:09 | Observation (INO) | payer MEDICARE ==
--- NOTE | 2020-12-06 06:18 | ED ---
Altered Mental Status HPI - General Source: patient, EMS Mode of arrival: EMS Limitations: no limitations <Pérez Shea - Last Filed: 12/06/20 06:17> - History of Present Illness MD Complaint: altered mental status, decreased responsiveness <Saul Joshua - Last Filed: 12/06/20 07:37> - General Chief Complaint: Recheck/Abnormal Lab/Rx Stated Complaint: Possible Overdose Time Seen by Provider: 12/06/20 06:13 - History of Present Illness Initial Comments: This is a 41-year-old female with a known history of alcoholism who was brought in by EMS after she was found by her parents to be unresponsive. She apparently is less responsive than usual and she drinks alcohol. No trauma reported no fevers chills nausea vomiting sweats or other symptoms reported no other history is limited (Saul Joshua) - Related Data Home Medications Medication Instructions Recorded Confirmed [place] Carbonate ER [Lithobid] 450 mg PO BID 10/16/20 10/16/20 lamoTRIgine [LaMICtal] 150 mg PO BID 10/16/20 10/16/20 Escitalopram [Lexapro] 20 mg PO DAILY 12/06/20 12/06/20 clonazePAM [KlonoPIN] 2 mg PO HS 12/06/20 12/06/20 Allergies Allergy/AdvReac Type Severity Reaction Status Date / Time amoxicillin Allergy Rash/Hives Verified 12/06/20 07:34 Review of Systems ROS Other: All systems not noted in ROS Statement are negative. <Pérez Shea - Last Filed: 12/06/20 06:17> ROS Other: All systems not noted in ROS Statement are negative. Limitations: ROS unobtainable due to patients medical condition <Saul Joshua - Last Filed: 12/06/20 07:37> ROS Statement: Those systems with pertinent positive or pertinent negative responses have been documented in the HPI. Past Medical History Past Medical History: No Reported History History of Any Multi-Drug Resistant Organisms: None Reported Past Surgical History: No Surgical Hx Reported Past Anesthesia/Blood Transfusion Reactions: No Reported Reaction Past Psychological History: Anxiety, Depression Smoking Status: Unknown if ever smoked Past Alcohol Use History: Abuse, Daily, Heavy Past Drug Use History: None Reported - Past Family History Father Family Medical History: Unable to Obtain Mother Family Medical History: Unable to Obtain <Pérez Shea - Last Filed: 12/06/20 06:17> General Exam Limitations: no limitations <Pérez Shea - Last Filed: 12/06/20 06:17> General appearance: lethargic, obtunded Head exam: Present: atraumatic, normocephalic, normal inspection Eye exam: Present: normal appearance, PERRL, EOMI. Absent: scleral icterus, conjunctival injection, periorbital swelling ENT exam: Present: mucous membranes dry Neck exam: Present: normal inspection. Absent: tenderness, meningismus, lymphadenopathy Respiratory exam: Present: normal lung sounds bilaterally. Absent: respiratory distress, wheezes, rales, rhonchi, stridor Cardiovascular Exam: Present: regular rate, normal rhythm, normal heart sounds. Absent: systolic murmur, diastolic murmur, rubs, gallop, clicks GI/Abdominal exam: Present: soft, normal bowel sounds. Absent: distended, tenderness, guarding, rebound, rigid, bruit Rectal exam: Present: deferred Extremities exam: Present: normal inspection, full ROM, normal capillary refill. Absent: tenderness, pedal edema, joint swelling, calf tenderness Back exam: Present: normal inspection Neurological exam: Present: alert, altered, CN II-XII intact Psychiatric exam: Present: other (Able to fully assess at this time) Skin exam: Present: warm, dry, intact, normal color. Absent: rash <Saul Joshua - Last Filed: 12/06/20 07:37> - General Exam Comments Initial Comments: This is a well-developed female who was obtunded but did respond to painful stimuli. All of alcohol conjoiners on her breath (Saul Joshua) Course Vital Signs 12/06/20 12/06/20 12/06/20 06:10 06:40 07:04 Temperature 98.0 F Pulse Rate 99 Respiratory 15 15 16 Rate Blood Pressure 108/84 103/70 O2 Sat by Pulse 95 98 Oximetry 12/06/20 07:21 Temperature Pulse Rate 82 Respiratory 18 Rate Blood Pressure 113/96 O2 Sat by Pulse 100 Oximetry Medical Decision Making - EKG Data -: EKG Interpreted by Me EKG shows normal: sinus rhythm, axis (Normal), intervals (Prolonged QT), QRS complexes (incomplete RBBB), ST-T waves (Normal) Rate: normal (rate 99) <Pérez Shea - Last Filed: 12/06/20 06:17> - Lab Data Result diagrams: 12/06/20 06:26 12/06/20 06:26 - Radiology Data Radiology results: report reviewed (Imaging reviewed no evidence of acute findings evidence of bilateral atelectasis on the x-ray CAT scan unremarkable for acute processes), image reviewed <TresSaul - Last Filed: 12/06/20 07:37> - Medical Decision Making Patient is intoxicated with alcohol. She is demonstrated also evidence of dehydration and she'll be admitted the case was discussed with Dr. INIGUEZ. . (Saul Joshua) - Lab Data Lab Results 12/06/20 12/06/20 12/06/20 Range/Units 06:26 06:26 06:26 WBC 8.6 (3.8-10.6) k/uL RBC 4.39 (3.80-5.40) m/uL Hgb 10.0 L D (11.4-16.0) gm/dL Hct 32.1 L (34.0-46.0) % MCV 73.0 L (80.0-100.0) fL MCH 22.7 L (25.0-35.0) pg MCHC 31.1 (31.0-37.0) g/dL RDW 19.4 H (11.5-15.5) % Plt Count 285 D (150-450) k/uL MPV 6.9 Neutrophils % 54 % Lymphocytes % 34 % Monocytes % 6 % Eosinophils % 3 % Basophils % 1 % Neutrophils # 4.7 (1.3-7.7) k/uL Lymphocytes # 2.9 (1.0-4.8) k/uL Monocytes # 0.5 (0-1.0) k/uL Eosinophils # 0.2 (0-0.7) k/uL Basophils # 0.1 (0-0.2) k/uL Hypochromasia Marked Poikilocytosis Slight Anisocytosis Slight Microcytosis Moderate PT 10.2 (9.0-12.0) sec INR 0.9 (<1.2) APTT 21.6 L (22.0-30.0) sec Sodium 140 (137-145) mmol/L Potassium 5.2 H (3.5-5.1) mmol/L Chloride 104 (98-107) mmol/L Carbon Dioxide 18 L (22-30) mmol/L Anion Gap 18 mmol/L BUN 8 (7-17) mg/dL Creatinine 0.60 (0.52-1.04) mg/dL Est GFR (CKD-EPI)AfAm >90 (>60 ml/min/1.73 sqM) Est GFR (CKD-EPI)NonAf >90 (>60 ml/min/1.73 sqM) Glucose 96 (74-99) mg/dL Calcium 10.0 (8.4-10.2) mg/dL Total Bilirubin 0.3 (0.2-1.3) mg/dL AST 54 H (14-36) U/L ALT 27 (4-34) U/L Alkaline Phosphatase 56 (38-126) U/L Troponin I (0.000-0.034) ng/mL Total Protein 8.6 H (6.3-8.2) g/dL Albumin 5.1 H (3.5-5.0) g/dL Urine Color Urine Appearance (Clear) Urine pH (5.0-8.0) Ur Specific [place] (1.001-1.035) Urine Protein (Negative) Urine Glucose (UA) (Negative) Urine Ketones (Negative) Urine Blood (Negative) Urine Nitrite (Negative) Urine Bilirubin (Negative) Urine Urobilinogen (<2.0) mg/dL Ur Leukocyte Esterase (Negative) Urine Opiates Screen (NotDetected) Ur Oxycodone Screen (NotDetected) Urine Methadone Screen (NotDetected) Ur Propoxyphene Screen (NotDetected) Ur Barbiturates Screen (NotDetected) U Tricyclic Antidepress (NotDetected) Ur Phencyclidine Scrn (NotDetected) Ur Amphetamines Screen (NotDetected) U Methamphetamines Scrn (NotDetected) U Benzodiazepines Scrn (NotDetected) Urine Cocaine Screen (NotDetected) U Marijuana (THC) Screen (NotDetected) Serum Alcohol 407 H* mg/dL 12/06/20 12/06/20 12/06/20 Range/Units 06:26 06:37 06:37 WBC (3.8-10.6) k/uL RBC (3.80-5.40) m/uL Hgb (11.4-16.0) gm/dL Hct (34.0-46.0) % MCV (80.0-100.0) fL MCH (25.0-35.0) pg MCHC (31.0-37.0) g/dL RDW (11.5-15.5) % Plt Count (150-450) k/uL MPV Neutrophils % % Lymphocytes % % Monocytes % % Eosinophils % % Basophils % % Neutrophils # (1.3-7.7) k/uL Lymphocytes # (1.0-4.8) k/uL Monocytes # (0-1.0) k/uL Eosinophils # (0-0.7) k/uL Basophils # (0-0.2) k/uL Hypochromasia Poikilocytosis Anisocytosis Microcytosis PT (9.0-12.0) sec INR (<1.2) APTT (22.0-30.0) sec Sodium (137-145) mmol/L Potassium (3.5-5.1) mmol/L Chloride (98-107) mmol/L Carbon Dioxide (22-30) mmol/L Anion Gap mmol/L BUN (7-17) mg/dL Creatinine (0.52-1.04) mg/dL Est GFR (CKD-EPI)AfAm (>60 ml/min/1.73 sqM) Est GFR (CKD-EPI)NonAf (>60 ml/min/1.73 sqM) Glucose (74-99) mg/dL Calcium (8.4-10.2) mg/dL Total Bilirubin (0.2-1.3) mg/dL AST (14-36) U/L ALT (4-34) U/L Alkaline Phosphatase (38-126) U/L Troponin I <0.012 (0.000-0.034) ng/mL Total Protein (6.3-8.2) g/dL Albumin (3.5-5.0) g/dL Urine Color Colorless Urine Appearance Clear (Clear) Urine pH 6.0 (5.0-8.0) Ur Specific [place] 1.003 (1.001-1.035) Urine Protein Negative (Negative) Urine Glucose (UA) Negative (Negative) Urine Ketones Negative (Negative) Urine Blood Negative (Negative) Urine Nitrite Negative (Negative) Urine Bilirubin Negative (Negative) Urine Urobilinogen <2.0 (<2.0) mg/dL Ur Leukocyte Esterase Negative (Negative) Urine Opiates Screen Not Detected (NotDetected) Ur Oxycodone Screen Not Detected (NotDetected) Urine Methadone Screen Not Detected (NotDetected) Ur Propoxyphene Screen Not Detected (NotDetected) Ur Barbiturates Screen Not Detected (NotDetected) U Tricyclic Antidepress Detected H (NotDetected) Ur Phencyclidine Scrn Not Detected (NotDetected) Ur Amphetamines Screen Not Detected (NotDetected) U Methamphetamines Scrn Not Detected (NotDetected) U Benzodiazepines Scrn Not Detected (NotDetected) Urine Cocaine Screen Not Detected (NotDetected) U Marijuana (THC) Screen Not Detected (NotDetected) Serum Alcohol mg/dL Disposition <Pérez Shea - Last Filed: 12/06/20 06:17> <Saul Joshua - Last Filed: 12/06/20 07:37> Clinical Impression: Acute alcohol intoxication, Dehydration, Anemia Disposition: ADMITTED IP TO THIS [facility] Condition: Fair Referrals: None,Stated [Primary Care Provider] - 1-2 days
[2020-12-06] MEDS ORDERED: NALOXONE 0.4 MG/ML 1 ML VIAL IVP STA (06:23)
[2020-12-06 06:35] LABS: Anisocytosis Slight; Basophils # (A) 0.1 k/uL (0-0.2); Basophils % (A) 1 %; Eosinophils # (A) 0.2 k/uL (0-0.7); Eosinophils % (A) 3 %; HCT 32.1 % (34.0-46.0); Hypochromasia Marked; Lymphocytes # (A) 2.9 k/uL (1.0-4.8); Lymphocytes % (A) 34 %; MCH 22.7 pg (25.0-35.0); MCHC 31.1 g/dL (31.0-37.0); Mean Platelet Volume 6.9; Microcytosis Moderate; Monocytes # (A) 0.5 k/uL (0-1.0); Monocytes % (A) 6 %; Neutrophils # (A) 4.7 k/uL (1.3-7.7); Neutrophils % (A) 54 %; Poikilocytosis Slight; RBC 4.39 m/uL (3.80-5.40); RDW 19.4 % (11.5-15.5); WBC 8.6 k/uL (3.8-10.6)
[2020-12-06 06:47] LABS: ALT 27 U/L (4-34); AST 54 U/L (14-36); African American GFR (CKD) >90 (>60 ml/min/1.73 sqM); Albumin 5.1 g/dL (3.5-5.0); Alkaline Phosphatase 56 U/L (38-126); Anion Gap 18 mmol/L; Blood Urea Nitrogen 8 mg/dL (7-17); Carbon Dioxide 18 mmol/L (22-30); Chloride 104 mmol/L (98-107); Glucose 96 mg/dL (74-99); Non-African American GFR(CKD) >90 (>60 ml/min/1.73 sqM); Potassium 5.2 mmol/L (3.5-5.1); Sodium 140 mmol/L (137-145); Total Bilirubin 0.3 mg/dL (0.2-1.3); Total Protein 8.6 g/dL (6.3-8.2)
[2020-12-06 06:53] LABS: Platelet Count 285 k/uL (150-450)
[2020-12-06 06:55] LABS: Appearance,Urine Clear (Clear); Bilirubin,Urine Negative (Negative); Blood,Urine Negative (Negative); Color,Urine Colorless; Glucose,Urine (UA) Negative (Negative); Ketones,Urine Negative (Negative); Leukocyte Esterase,Urine Negative (Negative); Nitrite,Urine Negative (Negative); Protein,Urine Negative (Negative); Specific Gravity,Urine 1.003 (1.001-1.035); Urobilinogen,Urine <2.0 mg/dL (<2.0)
[2020-12-06 07:01] LABS: INR 0.9 (<1.2); Prothrombin Time 10.2 sec (9.0-12.0)
--- NOTE | 2020-12-06 07:03 | XR ---
EXAMINATION TYPE: XR chest 1V portable DATE OF EXAM: 12/06/2020 COMPARISON: Chest x-ray October 16, 2020 HISTORY: Unresponsive. Weakness. TECHNIQUE: Single AP portable frontal view of the chest is obtained. FINDINGS: There is diminished inspiration with patchy bibasilar opacity. The cardiac silhouette siz e is stable and within normal limits. The osseous structures are intact. Overlying EKG leads. IMPRESSION: Diminished inspiration with patchy bibasilar atelectasis suspected.
[2020-12-06 07:05] LABS: Partial Thromboplastin Time 21.6 sec (22.0-30.0)
[2020-12-06 07:13] LABS: Alcohol 407 mg/dL
[2020-12-06 07:17] LABS: Cocaine Screen,Urine Not Detected (NotDetected); Phencyclidine Screen,Urine Not Detected (NotDetected); Urn Cannabinoid Scrn Not Detected (NotDetected)
[2020-12-06 07:18] LABS: Amphetamine Screen,Urine Not Detected (NotDetected); Barbiturate Screen,Urine Not Detected (NotDetected); Benzodiazepines Screen,Urine Not Detected (NotDetected); Methadone Screen, Urine Not Detected (NotDetected); Opiate Screen,Urine Not Detected (NotDetected); Oxycodone Screen, Urine Not Detected (NotDetected); Tricyclic Antidepressant,Urine Detected (NotDetected)
--- NOTE | 2020-12-06 07:18 | CT ---
EXAMINATION TYPE: CT brain wo con DATE OF EXAM: 12/06/2020 COMPARISON: CT brain October 16, 2020 HISTORY: Altered mental status CT DLP: 1055.4 mGycm. Automated Exposure Control for Dose Reduction was Utilized. TECHNIQUE: CT scan of the head is performed without contrast. FINDINGS: There is no acute intracranial hemorrhage or midline shift identified. Mild to moderate v entricular and sulcal prominence somewhat prominent for patient's age. The globes are intact and the visualized sinuses are clear. IMPRESSION: No acute intracranial hemorrhage or midline shift is seen. [id number] diffuse atro phy. No significant change from prior CT.
[2020-12-06] MEDS ORDERED: LORazepam 2 MG/ML INJ IV PRN ×3 (07:23)
[2020-12-06] MEDS ORDERED: THIAMINE 100 MG/ML 2 ML VIAL IM STA (07:23)
[2020-12-06] MEDS ORDERED: SODIUM CHLORIDE 0.9% 1,000 ML IV STA (07:26)
[2020-12-06] MEDS ORDERED: NALOXONE 0.4 MG/ML 1 ML VIAL IV PRN ×2 (07:37→09:33)
[2020-12-06] MEDS ORDERED: SODIUM CHLORIDE 0.9% 1,000 ML IV SCH (07:45)
[2020-12-06] MEDS ORDERED: SODIUM CHLORIDE 0.9% 1,000 ML with MVI, ADULT NO.4 WITH VIT K 10 ML, THIAMINE 100 MG, F... IV ONE ×4 (07:45)
[2020-12-06] MEDS ORDERED: ONDANSETRON 4 MG/2 ML VIAL IVP PRN (07:54)
[2020-12-06] MEDS: DEXTROSE 5%-0.45% NACL 2,000 ML IV SCH (08:10)
[2020-12-06] MEDS ORDERED: PANTOPRAZOLE 40 MG/10 ML VIAL IVP SCH (09:00)
[2020-12-06] MEDS ORDERED: ACETAMINOPHEN TAB 325 MG TAB PO PRN (09:33)
[2020-12-06] MEDS: HEPARIN SODIUM,PORCINE 5,000 UNIT/ML 1 ML VIAL SQ SCH ×2 (09:57→23:42)
[2020-12-06 12:53] LABS: Glucose,Whole Blood 94 mg/dL (75-99)
--- NOTE | 2020-12-06 13:43 | P.HPIM ---
History of Present Illness H&P Date: 12/06/20 Chief Complaint: alcohol intoxication History of presenting illness: Patient is a 40-year-old female with a past medical history of bipolar disorder and EtOH abuse. Patient presented to the emergency department via EMS after being found by her parents to be unresponsive. Information obtained per ED documentation, attempts made to call patient's mother (Joselyn Francois) were unsuccessful as phone number on file is invalid. Patient received a full workup in emergency department and was found to have significant alcohol intoxication with serum alcohol level of 407. CT head negative for acute process. Chest x- ray revealing diminished inspiration with patchy by basilar atelectasis. Urinalysis negative. Urine drug screen positive for tricyclics. EKG was normal sinus rhythm and 99 bpm with no noted T-wave or ST abnormality showing no signs of acute ischemia. BMP revealed mild hyperkalemia with potassium of 5.2 otherwise unremarkable. CBC revealed microcytic microchromic anemia with a hemoglobin of 10.0, hematocrit 32.1, MCV 73.0, MCH 22.7, MCHC of 31.1, and RDW of 19.4. Liver profile revealed slight elevation of AST at 54 and hypoalbuminemia with albumin of 5.1. [place] level of 1.1. Patient admitted under our services for alcohol intoxication. Upon assessment, patient was obtunded sleeping heavily and required sternal rub for awakening. Upon awakening, pt would sit up and mumble words but speech was significantly slurred. There was a strong scent of EtOH. Per documentation in chart, patient's daily medications consist of Klonopin, Lexapro, Lamictal, and lithium. Review of systems: Unable to complete full ROS secondary to patient's altered mentation with c urrent obtunded state. Physical exam: General: Patient obtunded, awoken via sternal rub. Patient was able to sit up in the bed on her own and her gag reflex is intact. Derm: warm, dry Head: atraumatic, normocephalic, symmetric Eyes: Pupils equal, round, and reactive at 5 mm to 4 mm. Anicteric sclera Mouth: No lip or tongue lesions noted, mucus membranes moist, gag reflex intact Cardiovascular: S1S2 normal with regular rate and rhythm. No murmur, positive posterior tibial pulses bilaterally. Lungs: Respirations even, regular, and unlabored on room air. Lungs clear to auscultation bilaterally. No accessory muscle use noted. Abdominal: Soft, nontender to palpation, no guarding, no appreciable organomegaly Ext: no gross muscle atrophy, no edema, no contractures Neuro: Patient obtunded only awakening via sternal rub. Upon awakening patient following simple commands as she sat up to allow provider to listen to lungs and rolled onto her side when she was asked. Patient's speech slurred. Strong EtOH scent. Psych: Obtunded Assessment and Plan of Care: Toxic Encephalopathy -Believed to be resulting from acute alcohol intoxication vs misuse/abuse of daily medications such as Klonopin. -CT head negative for acute intercranial process. -Urine drug screen positive for tricyclics. -Serum alcohol 407 -Currently obtunded, awoken only via sternal rub. -Continue neuro checks every 4 hours and as needed. -Seizure, fall, and aspiration precautions in place. -[place] levels therapeutic at 1.1. EtOH intoxication -Serum alcohol 407. -CIWA protocol with symptom triggered medication management with Ativan. -Neuro checks every 4 hours and as needed. -Seizure precautions, fall precautions, and aspiration precautions to remain in place. -Continue with generous rehydration with D5 0.45 125 mL's per hour. -Thiamine 100 mg twice daily. Hyperkalemia -Potassium 5.2. -Continue hydration with IV fluids. -Repeat with a.m. labs . Bipolar disorder -Patient has a history of bipolar disorder and daily medication regimen consists of Klonopin, Lexapro, Lamictal, and lithium. -[place] levels therapeutic at 1.1. -Medications being held at this time secondary to patient's obtunded state. Microcytic microchromic anemia, stable -Appears chronic in nature, 10/16/20 hemoglobin was 9.9 and 10/17/20 and hemoglobin was 8.3. No previous labs available prior to this year. The patient is admitted with an anticipated greater than 2 midnight stay for evaluation of toxic encephalopathy with acute alcohol intoxication. CODE STATUS: Full code by default, patient obtunded and unable to discuss secondary to current state, made attempts at contacting patient's mother, however phone number documented in chart was no longer valid. DVT prophylaxis: Heparin Discussed with: RN Anticipated discharge date: Clinical course to determine Anticipated discharge place: Home A total of 45 minutes was spent on the care of this complex patient more than 50% of the time was spent in counseling and care coordination. Past Medical History Past Medical History: No Reported History History of Any Multi-Drug Resistant Organisms: None Reported Past Surgical History: No Surgical Hx Reported Past Anesthesia/Blood Transfusion Reactions: No Reported Reaction Past Psychological History: Anxiety, Depression Smoking Status: Unknown if ever smoked Past Alcohol Use History: Abuse, Daily, Heavy Past Drug Use History: None Reported - Past Family History Father Family Medical History: Unable to Obtain Mother Family Medical History: Unable to Obtain Medications and Allergies Home Medications Medication Instructions Recorded Confirmed Type [place] Carbonate ER [Lithobid] 450 mg PO BID 10/16/20 12/06/20 History lamoTRIgine [LaMICtal] 150 mg PO BID 10/16/20 12/06/20 History Escitalopram [Lexapro] 20 mg PO DAILY 12/06/20 12/06/20 History clonazePAM [KlonoPIN] 2 mg PO HS 12/06/20 12/06/20 History Allergies Allergy/AdvReac Type Severity Reaction Status Date / Time amoxicillin Allergy Rash/Hives Verified 12/06/20 07:34 Physical Exam Vitals: Vital Signs Temp Pulse Resp BP Pulse Ox 12/06/20 07:21 82 18 113/96 100 12/06/20 07:04 16 103/70 98 12/06/20 06:40 15 12/06/20 06:10 98.0 F 99 15 108/84 95 Intake and Output 12/05/20 12/06/20 12/06/20 22:59 06:59 14:59 Other: Weight 68.039 kg Results CBC & Chem 7: 12/06/20 06:26 12/06/20 06:26 Labs: Abnormal Lab Results - Last 24 Hours (Table) 12/06/20 12/06/20 12/06/20 Range/Units 06:26 06:26 06:26 Hgb 10.0 L D (11.4-16.0) gm/dL Hct 32.1 L (34.0-46.0) % MCV 73.0 L (80.0-100.0) fL MCH 22.7 L (25.0-35.0) pg RDW 19.4 H (11.5-15.5) % APTT 21.6 L (22.0-30.0) sec Potassium 5.2 H (3.5-5.1) mmol/L Carbon Dioxide 18 L (22-30) mmol/L AST 54 H (14-36) U/L Total Protein 8.6 H (6.3-8.2) g/dL Albumin 5.1 H (3.5-5.0) g/dL U Tricyclic Antidepress (NotDetected) Serum Alcohol 407 H* mg/dL 12/06/20 Range/Units 06:37 Hgb (11.4-16.0) gm/dL Hct (34.0-46.0) % MCV (80.0-100.0) fL MCH (25.0-35.0) pg RDW (11.5-15.5) % APTT (22.0-30.0) sec Potassium (3.5-5.1) mmol/L Carbon Dioxide (22-30) mmol/L AST (14-36) U/L Total Protein (6.3-8.2) g/dL Albumin (3.5-5.0) g/dL U Tricyclic Antidepress Detected H (NotDetected) Serum Alcohol mg/dL
[2020-12-06 17:33] VITALS: RESP 18
[2020-12-06] MEDS: THIAMINE 100 MG TAB PO SCH (18:10)
[2020-12-07] MEDS: DEXTROSE 5%-0.45% NACL 2,000 ML IV SCH (04:42)
[2020-12-07 04:53] VITALS: BP 98/65; PULSE 88; TEMP 99.6
[2020-12-07] MEDS: HEPARIN SODIUM,PORCINE 5,000 UNIT/ML 1 ML VIAL SQ SCH ×2 (08:23→08:25)
[2020-12-07] MEDS: THIAMINE 100 MG TAB PO SCH (08:23)
[2020-12-07 09:44] LABS: African American GFR (CKD) 123.9 (60.0-200.0); BUN/Creat Ratio 15.71 Ratio (12.00-20.00); Calcium 8.5 mg/dL (8.7-10.3); Magnesium 1.8 mg/dL (1.5-2.4); Non-African American GFR(CKD) 106.9 (60.0-200.0); Potassium 3.8 mmol/L (3.5-5.5)
--- NOTE | 2020-12-07 13:06 | P.DS ---
Providers Date of admission: 12/06/20 07:37 Expected date of discharge: 12/07/20 Attending physician: Aleisha Bonilla Primary care physician: Stated None Hospital Course: Discharge Diagnosis: Acute alcohol intoxication Alcohol abuse Alcoholic gastritis Toxic metabolic encephalopathy Iron deficiency anemia Hyperkalemia, resolved Bipolar disorder Hospital Course: Patient is a 40-year-old female with a history of bipolar disorder and alcohol abuse who presented to the emergency department via EMS after being found by her parents unresponsive. The ER she was found have significant alcohol intoxication with serum alcohol level CDVII. CT was negative for acute process. Chest x-ray revealed diminished inspiration. Urine drug screen was positive for tricyclics. She was subsequently admitted secondary to her lethargy and confusion. She was monitored overnight. She was awake alert and oriented by the morning of 12/07/20. She denied any suicidal or homicidal ideation and feels as though her mood is at baseline. She denied wanted to go to rehab or meeting with social work. She was complaining of some intermittent nausea over the last 1-2 weeks and she will be trialed on increased omeprazole 40 mg twice daily. We had a jenniffer discussion regarding her need to cut down alcohol intake as she came in severely inebriated, we discussed that this could lead to aspiration and . Patient understands the conversation, however does not appear motivated to change. Patient was subsequently discharged in stable condition. She was given a prescription for omeprazole, thiamine, and folic acid. She'll follow up with her outpatient psychiatrist and her primary care provider. Patient does not have the desire to quit drinking at this time, but will attempt to limit alcohol consumption. Patient seen and examined at bedside. She denies any chest pain, shortness of breath, had nausea last night at 1 in the morning which was relieved with Zofran, no abdominal pain, no tremors, no headache. Vital signs reviewed and stable. General: non toxic, no distress, appears at stated age, disheveled Derm: warm, dry Head: atraumatic, normocephalic, symmetric Eyes: EOMI, no lid lag, anicteric sclera Mouth: no lip lesion, mucus membranes moist Cardiovascular: S1S2 reg, no murmur, positive posterior tibial pulse bilateral, Lungs: CTA bilateral, no rhonchi, no rales , no accessory muscle use Abdominal: soft, nontender to palpation, no guarding, no appreciable organomegaly Ext: no gross muscle atrophy, no edema, no contractures Neuro: CN II-XI grossly intact, no focal neuro deficits Psych: Alert, oriented, appropriate affect A total of 25 minutes of time were spent preparing this complex discharge summary . Patient Condition at Discharge: Fair Plan - Discharge Summary Discharge Rx Participant: Yes New Discharge Prescriptions: New Thiamine [Vitamin B-1] 100 mg PO BID-W/MEALS #30 tab Folic Acid 1 mg PO BID #60 tablet Omeprazole 40 mg PO BID #60 capsule. Continue [place] Carbonate ER [Lithobid] 450 mg PO BID lamoTRIgine [LaMICtal] 150 mg PO BID clonazePAM [KlonoPIN] 2 mg PO HS Escitalopram [Lexapro] 20 mg PO DAILY Discharge Medication List [place] Carbonate ER [Lithobid] 450 mg PO BID 10/16/20 [History] lamoTRIgine [LaMICtal] 150 mg PO BID 10/16/20 [History] Escitalopram [Lexapro] 20 mg PO DAILY 12/06/20 [History] clonazePAM [KlonoPIN] 2 mg PO HS 12/06/20 [History] Folic Acid 1 mg PO BID #60 tablet 12/07/20 [Rx] Omeprazole 40 mg PO BID #60 capsule. 12/07/20 [Rx] Thiamine [Vitamin B-1] 100 mg PO BID-W/MEALS #30 tab 12/07/20 [Rx] Follow up Appointment(s)/Referral(s): None,Stated [Primary Care Provider] - 1-2 days Patient Instructions/Handouts: Omeprazole (By mouth), Thiamine (By mouth), Folic Acid (By mouth), Dehydration (DC), Alcohol Intoxication (DC) Activity/Diet/Wound Care/Special Instructions: Follow up with you psychiatrist Limit alcohol consumption Increase Omeprazole to twice daily Discharge Disposition: HOME SELF-CARE
== END 2020-12-07 11:51 | disposition home or self-care (01) ==
LOC: EC 06:09 → INTOOBSV 07:37 → 5NMEDONC 07:37 → UNDODISIN 12-07 11:51
PROVIDERS: ADMIT Internal Medicine; ATTEND Internal Medicine
DX: F10.129 Alcohol abuse with intoxication, unspecified (principal); G92 Toxic encephalopathy; J98.11 Atelectasis; K29.20 Alcoholic gastritis without bleeding; E86.0 Dehydration; E87.5 Hyperkalemia; D50.9 Iron deficiency anemia, unspecified; Y90.8 Blood alcohol level of 240 mg/100 ml or more; F31.9 Bipolar disorder, unspecified; F41.9 Anxiety disorder, unspecified; Z20.822 Contact with and (suspected) exposure to COVID-19; Z79.899 Other long term (current) drug therapy; Z88.0 Allergy status to penicillin
CPT/HCPCS: 96375 ×2; 51701; 96361; 96372; 96374; 99285; 36415; 93005; 80053; 80048; 80178; 83735; 84484; 85025; 85610; 85730; 81003; 81025; 80306; 87635; 71045; 70450; G0378 ×2; G0480; J2060; J1644; J2310; J3411; J2405; C9113; 80320

== ENCOUNTER 2021-04-20 21:36 | Emergency (ER) | payer MEDICARE ==
[2021-04-20 21:44] VITALS: TEMP 97.4
--- NOTE | 2021-04-20 21:59 | ED ---
Alcohol HPI - General Chief Complaint: Alcohol Stated Complaint: ETOH Time Seen by Provider: 04/20/21 21:38 Source: EMS, RN notes reviewed, old records reviewed Mode of arrival: EMS Limitations: no limitations - History of Present Illness Initial Comments: This is a 40-year-old female DF for evaluation patient Dese for evaluation regards to alcohol intoxication. Patient is a poor historian secondary to significantly intoxicated state. Patient doesn't know where she is or how she got here MD Complaint: alcohol intoxication Last Drink: unknown -: minute(s) Previous Visits for Alcohol Intoxication?: No Recent Trauma: No Associated Symptoms: denies other symptoms Treatments Prior to Arrival: none Chronic Alcohol Use: Yes - Related Data Home Medications Medication Instructions Recorded Confirmed [place] Carbonate ER [Lithobid] 450 mg PO BID 10/16/20 04/20/21 lamoTRIgine [LaMICtal] 150 mg PO BID 10/16/20 04/20/21 Escitalopram [Lexapro] 40 mg PO HS 12/06/20 04/20/21 clonazePAM [KlonoPIN] 2 mg PO HS 12/06/20 04/20/21 Omeprazole 40 mg PO DAILY 04/20/21 04/20/21 Allergies Allergy/AdvReac Type Severity Reaction Status Date / Time amoxicillin Allergy Rash/Hives Verified 04/20/21 21:44 Review of Systems ROS Statement: Those systems with pertinent positive or pertinent negative responses have been documented in the HPI. ROS Other: All systems not noted in ROS Statement are negative. Past Medical History Past Medical History: Seizure Disorder History of Any Multi-Drug Resistant Organisms: None Reported Past Surgical History: Adenoidectomy Past Anesthesia/Blood Transfusion Reactions: No Reported Reaction Past Psychological History: Anxiety, Depression Smoking Status: Never smoker Past Alcohol Use History: Abuse, Daily, Heavy Past Drug Use History: None Reported - Past Family History Father Family Medical History: Unable to Obtain Mother Family Medical History: Unable to Obtain General Exam General appearance: alert, in no apparent distress, appears intoxicated, anxious Head exam: Present: atraumatic, normocephalic, normal inspection Eye exam: Present: normal appearance, PERRL, EOMI. Absent: scleral icterus, conjunctival injection, periorbital swelling ENT exam: Present: normal exam, mucous membranes moist Neck exam: Present: normal inspection. Absent: tenderness, meningismus, lymphadenopathy Respiratory exam: Present: normal lung sounds bilaterally. Absent: respiratory distress, wheezes, rales, rhonchi, stridor Cardiovascular Exam: Present: regular rate, normal rhythm, normal heart sounds. Absent: systolic murmur, diastolic murmur, rubs, gallop, clicks GI/Abdominal exam: Present: soft, normal bowel sounds. Absent: distended, tenderness, guarding, rebound, rigid Extremities exam: Present: normal inspection, full ROM, normal capillary refill. Absent: tenderness, pedal edema, joint swelling, calf tenderness Back exam: Present: normal inspection Neurological exam: Present: alert, oriented X3, CN II-XII intact Psychiatric exam: Present: normal affect, normal mood Skin exam: Present: warm, dry, intact, normal color. Absent: rash Course Vital Signs 04/20/21 04/20/21 21:37 23:23 Temperature 97.4 F L Pulse Rate 93 86 Respiratory 17 20 Rate Blood Pressure 90/50 O2 Sat by Pulse 95 93 L Oximetry - Reevaluation(s) Reevaluation #1: 04/20/21 22:04 Medical records reviewed Reevaluation #2: 04/21/21 00:01 Patient is awake alert, able to ambulate, can be discharged home Medical Decision Making - Medical Decision Making 40 female DF for evaluation patient presents today for evaluation of alcohol intoxication. Patient's able to sleep in the ER, awake alert and can be discharged Disposition Clinical Impression: Acute alcohol intoxication Disposition: HOME SELF-CARE Condition: Good Instructions (If sedation given, give patient instructions): Alcohol Intoxication (ED) Is patient prescribed a controlled substance at d/c from ED?: No Referrals: None,Stated [Primary Care Provider] - 1-2 days
[2021-04-21 05:56] VITALS: BP 107/75; PULSE 88; RESP 16
== END 2021-04-21 06:30 | disposition home or self-care (01) ==
LOC: EC 21:36
DX: F10.129 Alcohol abuse with intoxication, unspecified (principal); F32.9 Major depressive disorder, single episode, unspecified; F41.9 Anxiety disorder, unspecified
CPT/HCPCS: 99284

== ENCOUNTER 2021-07-25 19:38 | Inpatient (IN) | payer MEDICARE ==
[2021-07-25] MEDS ORDERED: SODIUM CHLORIDE 0.9% 1,000 ML IV STA (19:55)
[2021-07-25 20:11] LABS: Basophils # (A) 0.1 k/uL (0-0.2); Basophils % (A) 1 %; Eosinophils # (A) 0.2 k/uL (0-0.7); Eosinophils % (A) 1 %; HCT 36.5 % (34.0-46.0); HGB 11.5 gm/dL (11.4-16.0); Lymphocytes # (A) 3.2 k/uL (1.0-4.8); Lymphocytes % (A) 29 %; MCH 27.9 pg (25.0-35.0); MCHC 31.4 g/dL (31.0-37.0); MCV 88.9 fL (80.0-100.0); Mean Platelet Volume 7.5; Monocytes # (A) 0.5 k/uL (0-1.0); Monocytes % (A) 5 %; Neutrophils # (A) 6.9 k/uL (1.3-7.7); Neutrophils % (A) 62 %; Platelet Count 273 k/uL (150-450); RBC 4.11 m/uL (3.80-5.40); RDW 15.5 % (11.5-15.5)
[2021-07-25 20:25] LABS: ALT 27 U/L (4-34); AST 40 U/L (14-36); African American GFR (CKD) >90 (>60 ml/min/1.73 sqM); Albumin 4.1 g/dL (3.5-5.0); Alkaline Phosphatase 53 U/L (38-126); Anion Gap 14 mmol/L; Blood Urea Nitrogen 6 mg/dL (7-17); Calcium 9.4 mg/dL (8.4-10.2); Carbon Dioxide 20 mmol/L (22-30); Chloride 112 mmol/L (98-107); Glucose 140 mg/dL (74-99); Non-African American GFR(CKD) >90 (>60 ml/min/1.73 sqM); Potassium 3.7 mmol/L (3.5-5.1); Sodium 146 mmol/L (137-145); Total Bilirubin 0.3 mg/dL (0.2-1.3); Total Protein 6.9 g/dL (6.3-8.2)
[2021-07-25 20:34] LABS: Alcohol 547 mg/dL
--- NOTE | 2021-07-25 21:48 | ED ---
Alcohol HPI - General Chief Complaint: Alcohol Stated Complaint: ETOH Time Seen by Provider: 07/25/21 19:45 Source: EMS Mode of arrival: EMS - History of Present Illness Initial Comments: This 40-year-old female presents with alcohol intoxication. The exact details of her events prior to arrival are not determine due to her significant degree of intoxication. She is unable to voice any degree of inflammation and is severely intoxicated. No other complaints identifiable or modifying factors. Of note, she has been here several times previously for alcohol intoxication per records. No trauma reported. Patient arrived via EMS. They do note that she has a bruise to her left arm. - Related Data Home Medications Medication Instructions Recorded Confirmed [place] Carbonate ER [Lithobid] 450 mg PO BID 10/16/20 07/25/21 lamoTRIgine [LaMICtal] 150 mg PO BID 10/16/20 07/25/21 Escitalopram [Lexapro] 40 mg PO HS 12/06/20 07/25/21 clonazePAM [KlonoPIN] 2 mg PO HS 12/06/20 07/25/21 Omeprazole 40 mg PO DAILY 04/20/21 07/25/21 Allergies Allergy/AdvReac Type Severity Reaction Status Date / Time amoxicillin Allergy Rash/Hives Verified 07/25/21 20:52 Review of Systems ROS Statement: Those systems with pertinent positive or pertinent negative responses have been documented in the HPI. ROS Other: All systems not noted in ROS Statement are negative. Past Medical History Past Medical History: Unable to Obtain, Seizure Disorder History of Any Multi-Drug Resistant Organisms: None Reported Past Surgical History: Adenoidectomy Past Anesthesia/Blood Transfusion Reactions: No Reported Reaction Past Psychological History: Anxiety, Depression Smoking Status: Never smoker Past Alcohol Use History: Abuse, Daily, Heavy Past Drug Use History: None Reported - Past Family History Father Family Medical History: Unable to Obtain Mother Family Medical History: Unable to Obtain General Exam - General Exam Comments Initial Comments: GENERAL: The patient is well nourished and well hydrated. VITAL SIGNS: Heart rate, blood pressure, respiratory rate reviewed as recorded in nurse's notes. EYES: Pupils are round and reactive. Extraocular movements are intact. No conjunctival / lid redness or swelling. ENT: No external evidence of injury, swelling, or ecchymosis. Airway is patent. Throat is clear. NECK: Nontender. No swelling or evidence of injury. No subcutaneous emphysema. Trachea is midline. No thyroid mass. HEART: Regular rate and rhythm. Good peripheral pulses. LUNGS/CHEST: Breath sounds clear and equal bilaterally. No rales, rhonchi, or wheezes. No ecchymosis, subcutaneous emphysema, or tenderness. ABDOMEN: Abdomen soft without tenderness. No palpable masses or organomegaly. No peritoneal signs. No abdominal wall swelling or ecchymosis. EXTREMITIES: No extremity tenderness. Normal muscle tone and function. No thoracolumbar tenderness. NEUROLOGIC: Patient is very intoxicated and not compliant with complete neurologic examination. SKIN: No abrasions noted. No induration or masses noted. Slight bruise noted to the lateral aspect of left upper extremity. PSYCHIATRIC: The patient is significantly intoxicated. Course Vital Signs 07/25/21 07/25/21 19:39 19:53 Temperature 97.4 F L Pulse Rate 101 H 95 Respiratory 18 18 Rate Blood Pressure 112/72 103/71 O2 Sat by Pulse 94 L 94 L Oximetry Medical Decision Making - Medical Decision Making The patient was seen and examined. All diagnostics were reviewed. An IV is established and she is hydrated. She is placed on the corporate planner with continuous pulse ox. The alcohol level came back elevated at 547. Laboratory does show slight decrease in CO2 does increase in sodium and chloride. This felt as though she severely intoxicated at this point time. She is maintaining airway well. Is felt as though she would require admission to the hospital for further sobering and monitoring. Case is discussed with Octavia from [facility] and she is agreeable with admission. - Lab Data Result diagrams: 07/25/21 20:04 07/25/21 20:04 Lab Results 07/25/21 07/25/21 Range/Units 20:04 20:04 WBC 11.0 H (3.8-10.6) k/uL RBC 4.11 (3.80-5.40) m/uL Hgb 11.5 (11.4-16.0) gm/dL Hct 36.5 (34.0-46.0) % MCV 88.9 (80.0-100.0) fL MCH 27.9 (25.0-35.0) pg MCHC 31.4 (31.0-37.0) g/dL RDW 15.5 (11.5-15.5) % Plt Count 273 (150-450) k/uL MPV 7.5 Neutrophils % 62 % Lymphocytes % 29 % Monocytes % 5 % Eosinophils % 1 % Basophils % 1 % Neutrophils # 6.9 (1.3-7.7) k/uL Lymphocytes # 3.2 (1.0-4.8) k/uL Monocytes # 0.5 (0-1.0) k/uL Eosinophils # 0.2 (0-0.7) k/uL Basophils # 0.1 (0-0.2) k/uL Sodium 146 H (137-145) mmol/L Potassium 3.7 (3.5-5.1) mmol/L Chloride 112 H (98-107) mmol/L Carbon Dioxide 20 L (22-30) mmol/L Anion Gap 14 mmol/L BUN 6 L (7-17) mg/dL Creatinine 0.59 (0.52-1.04) mg/dL Est GFR (CKD-EPI)AfAm >90 (>60 ml/min/1.73 sqM) Est GFR (CKD-EPI)NonAf >90 (>60 ml/min/1.73 sqM) Glucose 140 H (74-99) mg/dL Calcium 9.4 (8.4-10.2) mg/dL Total Bilirubin 0.3 (0.2-1.3) mg/dL AST 40 H (14-36) U/L ALT 27 (4-34) U/L Alkaline Phosphatase 53 (38-126) U/L Total Protein 6.9 (6.3-8.2) g/dL Albumin 4.1 (3.5-5.0) g/dL Serum Alcohol 547 H* mg/dL Disposition Clinical Impression: Alcoholic intoxication, Hypernatremia, Hyperchloremia Disposition: ADMITTED IP TO THIS HOSP Condition: Fair Instructions (If sedation given, give patient instructions): Alcohol Intoxication (ED) Is patient prescribed a controlled substance at d/c from ED?: No Referrals: None,Stated [Primary Care Provider] - 1-2 days Time of Disposition: 21:48
[2021-07-25] MEDS ORDERED: ACETAMINOPHEN TAB 325 MG TAB PO PRN (21:50)
[2021-07-25] MEDS ORDERED: LORazepam 2 MG/ML INJ IV PRN (21:54)
[2021-07-25] MEDS: SODIUM CHLORIDE 0.9% 1,000 ML IV SCH (22:08)
[2021-07-26] MEDS: SODIUM CHLORIDE 0.9% 1,000 ML IV SCH (02:48)
[2021-07-26] MEDS: LORazepam 2 MG/ML INJ IV PRN ×7 (05:44→22:49)
[2021-07-26] MEDS: THIAMINE 100 MG TAB PO SCH ×2 (06:30→18:00)
[2021-07-26 07:23] LABS: African American GFR (CKD) >90 (>60 ml/min/1.73 sqM); Anion Gap 13 mmol/L; Blood Urea Nitrogen 7 mg/dL (7-17); Calcium 8.4 mg/dL (8.4-10.2); Carbon Dioxide 21 mmol/L (22-30); Chloride 118 mmol/L (98-107); Glucose 115 mg/dL (74-99); Non-African American GFR(CKD) >90 (>60 ml/min/1.73 sqM); Sodium 152 mmol/L (137-145)
[2021-07-26] MEDS: HALOPERIDOL LACTATE 5 MG/ML 1 ML VIAL IM PRN ×2 (08:48→12:52)
[2021-07-26] MEDS: ENOXAPARIN 40 MG/0.4 ML SYRINGE SQ SCH (12:06)
[2021-07-26] MEDS: DEXTROSE 5%-0.45% NACL 1,000 ML IV SCH ×2 (12:07→20:47)
[2021-07-26] MEDS: LITHIUM CARBONATE ER 450 MG TABLET.ER PO SCH ×2 (12:12→20:46)
[2021-07-26] MEDS: lamoTRIgine 100 MG TAB PO SCH ×2 (12:12→20:46)
[2021-07-26] MEDS: PANTOPRAZOLE 40 MG TABLET PO SCH (12:12)
[2021-07-26] MEDS: MULTIVITAMINS, THERA 1 EACH TAB PO SCH (12:13)
[2021-07-26] MEDS: ONDANSETRON 4 MG/2 ML VIAL IVP PRN (18:00)
[2021-07-26] MEDS: ESCITALOPRAM 20 MG TAB PO SCH (20:46)
--- NOTE | 2021-07-26 23:39 | P.HPIM ---
History of Present Illness H&P Date: 07/26/21 Chief Complaint: Acute alcohol intoxication Patient is a 40-year-old female with known history of seizure disorder, anxiety/depression ADD alcohol abuse presents to ER due to acute alcohol intoxication. Patient has been in the ER previously several times due to alcohol intoxication. Patient was agitated and getting out of bed this morning. Was also given a dose of Haldol. Patient is being continued on alcohol withdrawal protocol. Laboratory data showed WBC 11.0 hemoglobin 11.4 and platelets 273 Sodium 146 potassium 3.7 chloride 112 bicarb is 20 BUN 6 creatinine 0.59 and blood sugar is 140 Serum alcohol level is 547 AST 40 ALT 27 alk phos 53 Repeat BMP showed sodium 142 potassium 4.0 chloride 118 COVID-19 PCR not detected Review of Systems Complete review of systems could not be obtained from the patient Past Medical History Past Medical History: Unable to Obtain, Seizure Disorder History of Any Multi-Drug Resistant Organisms: None Reported Past Surgical History: Adenoidectomy Past Anesthesia/Blood Transfusion Reactions: No Reported Reaction Past Psychological History: Anxiety, Depression Smoking Status: Never smoker Past Alcohol Use History: Abuse, Daily, Heavy Past Drug Use History: None Reported - Past Family History Father Family Medical History: Unable to Obtain Mother Family Medical History: Unable to Obtain Medications and Allergies Home Medications Medication Instructions Recorded Confirmed Type Ecru Carbonate ER [Lithobid] 450 mg PO BID 10/16/20 07/25/21 History lamoTRIgine [LaMICtal] 150 mg PO BID 10/16/20 07/25/21 History Escitalopram [Lexapro] 40 mg PO HS 12/06/20 07/25/21 History clonazePAM [KlonoPIN] 2 mg PO HS 12/06/20 07/25/21 History Omeprazole 40 mg PO DAILY 04/20/21 07/25/21 History Allergies Allergy/AdvReac Type Severity Reaction Status Date / Time amoxicillin Allergy Rash/Hives Verified 07/25/21 20:52 Physical Exam Vitals: Vital Signs Temp Pulse Pulse Resp BP BP Pulse Ox 07/26/21 08:00 98.2 F 102 H 19 120/84 97 07/26/21 04:31 18 07/26/21 03:46 98.8 F 93 20 109/65 99 07/26/21 00:51 96 18 95/53 96 10/12/21 23:45 91 16 07/25/21 23:29 97.9 F 91 16 96/60 98 07/25/21 23:04 86 18 95/62 96 07/25/21 22:17 97 18 100/70 96 07/25/21 19:53 95 18 103/71 94 L 07/25/21 19:39 97.4 F L 101 H 18 112/72 94 L Intake and Output 07/25/21 07/26/21 07/26/21 22:59 06:59 14:59 Other: # Voids 1 Weight 60.328 kg 63.5 kg PHYSICAL EXAMINATION: Patient is lying in the bed patient is currently lying in the bed awake alert but agitated and getting out of bed... HEENT: Normocephalic. Neck is supple. Pupils reactive. Nostrils clear. Oral cavity is moist. Neck reveals no JVD, carotid bruits, or thyromegaly. CHEST EXAMINATION: Trachea is central. Symmetrical expansion. Lung parker clear to auscultation and percussion. CARDIAC: Normal S1, S2 with no gallops. No murmurs ABDOMEN: Soft. Bowel sounds normal. No organomegaly. No abdominal bruits. Extremities: reveal no edema. No clubbing or cyanosis Neurologically awake, alert, oriented x1-2 with well-coordinated movements. No gross focal deficits noted Skin: No rash or skin lesions. Psychiatric: nonCooperative. Musculoskeletal: No joint swelling or deformity. Normal range of motion. Results CBC & Chem 7: 07/25/21 20:04 07/26/21 06:45 Labs: Abnormal Lab Results - Last 24 Hours (Table) 07/25/21 07/25/21 07/26/21 Range/Units 20:04 20:04 06:45 WBC 11.0 H (3.8-10.6) k/uL Sodium 146 H 152 H (137-145) mmol/L Chloride 112 H 118 H (98-107) mmol/L Carbon Dioxide 20 L 21 L (22-30) mmol/L BUN 6 L (7-17) mg/dL Glucose 140 H 115 H (74-99) mg/dL AST 40 H (14-36) U/L Serum Alcohol 547 H* mg/dL Thrombosis Risk Factor Assmnt - DVT/VTE Prophylaxis DVT/VTE Prophylaxis: Pharmacologic Prophylaxis ordered Assessment and Plan Assessment: Acute alcohol intoxication on admission Alcohol withdrawal symptoms and possible DTs Hypernatremia with sodium 152 History of seizure disorder Anxiety/depression Heavy alcohol use DVT prophylaxis with Lovenox Plan: Patient will be continued on IV hydration. Changes from normal saline to D5 half-normal saline. Encourage oral intake. Continue with home medications including Lamictal and lithium and continue with alcohol withdrawal protocols. Thiamine and multivitamins will be continued. GI and DVT prophylaxis. Continue to monitor closely. Time with Patient: Greater than 30
[2021-07-27] MEDS: LORazepam 2 MG/ML INJ IV PRN ×5 (01:41→23:29)
[2021-07-27] MEDS: DEXTROSE 5%-0.45% NACL 1,000 ML IV SCH ×2 (01:42→16:59)
[2021-07-27] MEDS: THIAMINE 100 MG TAB PO SCH ×2 (06:26→18:04)
[2021-07-27 07:01] LABS: Basophils % (A) 1 %; Eosinophils # (A) 0.2 k/uL (0-0.7); Eosinophils % (A) 4 %; HCT 32.1 % (34.0-46.0); HGB 10.1 gm/dL (11.4-16.0); Lymphocytes # (A) 1.2 k/uL (1.0-4.8); Lymphocytes % (A) 27 %; MCH 28.1 pg (25.0-35.0); MCHC 31.5 g/dL (31.0-37.0); MCV 89.2 fL (80.0-100.0); Mean Platelet Volume 8.3; Monocytes # (A) 0.2 k/uL (0-1.0); Monocytes % (A) 4 %; Neutrophils % (A) 64 %; Platelet Count 200 k/uL (150-450); RBC 3.61 m/uL (3.80-5.40); RDW 15.6 % (11.5-15.5); WBC 4.6 k/uL (3.8-10.6)
[2021-07-27 07:56] LABS: African American GFR (CKD) >90 (>60 ml/min/1.73 sqM); Anion Gap 6 mmol/L; Blood Urea Nitrogen 4 mg/dL (7-17); Calcium 8.2 mg/dL (8.4-10.2); Carbon Dioxide 25 mmol/L (22-30); Chloride 105 mmol/L (98-107); Glucose 98 mg/dL (74-99); Non-African American GFR(CKD) >90 (>60 ml/min/1.73 sqM); Potassium 3.7 mmol/L (3.5-5.1); Sodium 136 mmol/L (137-145)
[2021-07-27] MEDS: PANTOPRAZOLE 40 MG TABLET PO SCH (08:37)
[2021-07-27] MEDS: LITHIUM CARBONATE ER 450 MG TABLET.ER PO SCH ×2 (08:37→22:59)
[2021-07-27] MEDS: MULTIVITAMINS, THERA 1 EACH TAB PO SCH (08:37)
[2021-07-27] MEDS: lamoTRIgine 100 MG TAB PO SCH ×2 (08:37→20:25)
[2021-07-27] MEDS: ENOXAPARIN 40 MG/0.4 ML SYRINGE SQ SCH ×2 (08:37→08:42)
[2021-07-27] MEDS: ONDANSETRON 4 MG/2 ML VIAL IVP PRN ×2 (12:23→20:29)
[2021-07-27] MEDS: SODIUM CHLORIDE 0.9% 1,000 ML IV SCH (17:05)
[2021-07-27] MEDS: ESCITALOPRAM 20 MG TAB PO SCH (20:25)
[2021-07-28 06:05] VITALS: TEMP 98
[2021-07-28] MEDS: SODIUM CHLORIDE 0.9% 1,000 ML IV SCH (06:06)
[2021-07-28] MEDS: THIAMINE 100 MG TAB PO SCH (06:07)
[2021-07-28] MEDS: LORazepam 2 MG/ML INJ IV PRN ×2 (06:27→12:45)
[2021-07-28 07:53] LABS: Basophils % (A) 1 %; Eosinophils # (A) 0.2 k/uL (0-0.7); Eosinophils % (A) 4 %; HCT 33.8 % (34.0-46.0); HGB 10.8 gm/dL (11.4-16.0); Lymphocytes # (A) 1.3 k/uL (1.0-4.8); Lymphocytes % (A) 28 %; MCH 28.9 pg (25.0-35.0); MCV 90.3 fL (80.0-100.0); Mean Platelet Volume 8.4; Monocytes # (A) 0.2 k/uL (0-1.0); Monocytes % (A) 4 %; Neutrophils # (A) 2.9 k/uL (1.3-7.7); Neutrophils % (A) 62 %; Platelet Count 210 k/uL (150-450); RBC 3.75 m/uL (3.80-5.40); RDW 15.7 % (11.5-15.5); WBC 4.6 k/uL (3.8-10.6)
[2021-07-28 08:08] LABS: African American GFR (CKD) >90 (>60 ml/min/1.73 sqM); Anion Gap 3 mmol/L; Blood Urea Nitrogen 6 mg/dL (7-17); Calcium 9.1 mg/dL (8.4-10.2); Carbon Dioxide 24 mmol/L (22-30); Chloride 109 mmol/L (98-107); Glucose 97 mg/dL (74-99); Non-African American GFR(CKD) >90 (>60 ml/min/1.73 sqM); Potassium 4.1 mmol/L (3.5-5.1); Sodium 136 mmol/L (137-145)
[2021-07-28] MEDS: LITHIUM CARBONATE ER 450 MG TABLET.ER PO SCH (09:42)
[2021-07-28] MEDS: lamoTRIgine 100 MG TAB PO SCH (09:42)
[2021-07-28] MEDS: PANTOPRAZOLE 40 MG TABLET PO SCH (09:42)
[2021-07-28] MEDS: MULTIVITAMINS, THERA 1 EACH TAB PO SCH (09:42)
[2021-07-28] MEDS: ENOXAPARIN 40 MG/0.4 ML SYRINGE SQ SCH (09:43)
[2021-07-28 12:45] VITALS: BP 129/84; PULSE 98; RESP 16
== END 2021-07-28 16:27 | disposition home or self-care (01) | DRG 897 ==
LOC: EC 19:38 → 6NMEDSUR 21:50 → 3SCARD 22:41 → OBSVTOIN 07-26 08:50
PROVIDERS: ADMIT Hospitalist; ATTEND Hospitalist
DX: F10.129 Alcohol abuse with intoxication, unspecified (principal); E87.0 Hyperosmolality and hypernatremia; F10.139 Alcohol abuse with withdrawal, unspecified; E87.8 Other disorders of electrolyte and fluid balance, not elsewhere classified; G40.909 Epilepsy, unspecified, not intractable, without status epilepticus; Y90.8 Blood alcohol level of 240 mg/100 ml or more; Z20.822 Contact with and (suspected) exposure to COVID-19; F41.9 Anxiety disorder, unspecified; F32.9 Major depressive disorder, single episode, unspecified; Z79.899 Other long term (current) drug therapy; Z88.0 Allergy status to penicillin
CPT/HCPCS: 36415; 80048; 80053; 80320; 85025; 87635; 94760; 96360; 96361; 99285

== ENCOUNTER 2021-10-12 19:14 | Emergency (ER) | payer MEDICARE ==
[2021-10-12 20:41] VITALS: TEMP 98.7
--- NOTE | 2021-10-12 21:46 | ED ---
Psych HPI - General Source: patient, family, RN notes reviewed, old records reviewed Mode of arrival: ambulatory - History of Present Illness MD Complaint: suicidal ideation, feels depressed, altered mental status -: unknown Associated Psychiatric Symptoms: depression, suicidal ideation, racing thoughts History of same: Yes Quality: getting worse Improves With: none Worsens With: alcohol Context: not taking psychiatric medications, significant life stressor Associated Symptoms: denies other symptoms, confusion Treatments Prior to Arrival: placed on mental health hold If Self Harm: admits thoughts of self harm <Jaxson Renae - Last Filed: 10/13/21 01:03> <Burke Hylton - Last Filed: 10/13/21 11:43> - General Chief Complaint: Psychiatric Symptoms Stated Complaint: Alcohol Withdrawal, Shortness of breath Time Seen by Provider: 10/12/21 21:32 - History of Present Illness Initial Comments: This is a 40-year-old female to the emergency department for evaluation patient poor story and and presenting under petition for heavily drinking and not taking psychiatric medications. Patient is currently appropriate to answer questions. No recent travel history or sick contacts. (Jaxson Renae) - Related Data Home Medications Medication Instructions Recorded Confirmed [place] Carbonate ER [Lithobid] 450 mg PO BID 10/16/20 10/13/21 lamoTRIgine [LaMICtal] 150 mg PO BID 10/16/20 10/13/21 Escitalopram [Lexapro] 40 mg PO HS 12/06/20 10/13/21 clonazePAM [KlonoPIN] 2 mg PO HS 12/06/20 10/13/21 Omeprazole 40 mg PO DAILY 04/20/21 10/13/21 Allergies Allergy/AdvReac Type Severity Reaction Status Date / Time amoxicillin Allergy Rash/Hives Verified 10/13/21 09:08 Review of Systems ROS Other: All systems not noted in ROS Statement are negative. <Jaxson Renae - Last Filed: 10/13/21 01:03> ROS Other: All systems not noted in ROS Statement are negative. <Burke Hylton - Last Filed: 10/13/21 11:43> ROS Statement: Those systems with pertinent positive or pertinent negative responses have been documented in the HPI. Past Medical History Past Medical History: No Reported History Additional Past Medical History / Comment(s): withdrawl etoh seizures History of Any Multi-Drug Resistant Organisms: None Reported Past Surgical History: Adenoidectomy Additional Past Surgical History / Comment(s): poor historian Past Anesthesia/Blood Transfusion Reactions: No Reported Reaction Past Psychological History: Anxiety, Bipolar, Depression Smoking Status: Never smoker Past Alcohol Use History: Abuse, Daily, Heavy Past Drug Use History: None Reported - Past Family History Father Family Medical History: Unable to Obtain Mother Family Medical History: Unable to Obtain <Jaxson Renae - Last Filed: 10/13/21 01:03> General Exam Limitations: no limitations General appearance: alert, in no apparent distress Head exam: Present: atraumatic, normocephalic, normal inspection Eye exam: Present: normal appearance, PERRL, EOMI. Absent: scleral icterus, conjunctival injection, periorbital swelling ENT exam: Present: normal exam, mucous membranes moist Neck exam: Present: normal inspection. Absent: tenderness, meningismus, lymphadenopathy Respiratory exam: Present: normal lung sounds bilaterally. Absent: respiratory distress, wheezes, rales, rhonchi, stridor Cardiovascular Exam: Present: regular rate, normal rhythm, normal heart sounds. Absent: systolic murmur, diastolic murmur, rubs, gallop, clicks GI/Abdominal exam: Present: soft, normal bowel sounds. Absent: distended, tenderness, guarding, rebound, rigid Extremities exam: Present: normal inspection, full ROM, normal capillary refill. Absent: tenderness, pedal edema, joint swelling, calf tenderness Back exam: Present: normal inspection Neurological exam: Present: alert, oriented X3, CN II-XII intact Psychiatric exam: Present: normal affect, normal mood Skin exam: Present: warm, dry, intact, normal color. Absent: rash <Jaxson Renae - Last Filed: 10/13/21 01:03> Course <Jaxson Renae Last Filed: 10/13/21 01:03> Vital Signs 10/12/21 10/13/21 10/13/21 20:37 05:57 08:26 Temperature 98.7 F Pulse Rate 101 H 89 66 Respiratory 18 16 16 Rate Blood Pressure 121/75 111/70 128/66 O2 Sat by Pulse 91 L 97 99 Oximetry - Reevaluation(s) Reevaluation #1: 10/13/21 01:04 Medical record is reviewed (Jaxson Renae) Reevaluation #2: 10/13/21 01:04 A shunt medically clear at 0800 (Jaxson Renae) Medical Decision Making - Lab Data Result diagrams: 10/12/21 Unknown 10/12/21 Unknown <Jaxson Renae - Last Filed: 10/13/21 01:03> - Lab Data Result diagrams: 10/12/21 Unknown 10/12/21 Unknown <Burke Hylton - Last Filed: 10/13/21 11:43> - Medical Decision Making Patient seen by mental health services with plan for discharge. Patient denies suicidal ideation and does contract for safety. Patient agrees to follow-up. (Burke Hylton) - Lab Data Lab Results 10/12/21 10/12/21 10/13/21 Range/Units Unknown Unknown 01:36 WBC 4.1 (3.8-10.6) k/uL RBC 3.84 (3.80-5.40) m/uL Hgb 11.0 L (11.4-16.0) gm/dL Hct 34.2 (34.0-46.0) % MCV 89.2 (80.0-100.0) fL MCH 28.7 (25.0-35.0) pg MCHC 32.2 (31.0-37.0) g/dL RDW 14.5 (11.5-15.5) % Plt Count 222 (150-450) k/uL MPV 7.5 Neutrophils % 61 % Lymphocytes % 31 % Monocytes % 4 % Eosinophils % 1 % Basophils % 1 % Neutrophils # 2.5 (1.3-7.7) k/uL Lymphocytes # 1.3 (1.0-4.8) k/uL Monocytes # 0.2 (0-1.0) k/uL Eosinophils # 0.1 (0-0.7) k/uL Basophils # 0.0 (0-0.2) k/uL Sodium 139 (137-145) mmol/L Potassium 3.9 (3.5-5.1) mmol/L Chloride 103 (98-107) mmol/L Carbon Dioxide 23 (22-30) mmol/L Anion Gap 13 mmol/L BUN 11 (7-17) mg/dL Creatinine 0.49 L (0.52-1.04) mg/dL Est GFR (CKD-EPI)AfAm >90 (>60 ml/min/1.73 sqM) Est GFR (CKD-EPI)NonAf >90 (>60 ml/min/1.73 sqM) Glucose 78 (74-99) mg/dL Calcium 8.5 (8.4-10.2) mg/dL Total Bilirubin 0.1 L (0.2-1.3) mg/dL AST 55 H (14-36) U/L ALT 33 (4-34) U/L Alkaline Phosphatase 64 (38-126) U/L Total Protein 6.6 (6.3-8.2) g/dL Albumin 3.9 (3.5-5.0) g/dL Urine Color Light Yellow Urine Appearance Clear (Clear) Urine pH 7.0 (5.0-8.0) Ur Specific [place] 1.006 (1.001-1.035) Urine Protein Negative (Negative) Urine Glucose (UA) Negative (Negative) Urine Ketones Negative (Negative) Urine Blood Negative (Negative) Urine Nitrite Negative (Negative) Urine Bilirubin Negative (Negative) Urine Urobilinogen <2.0 (<2.0) mg/dL Ur Leukocyte Esterase Negative (Negative) Salicylates <1.0 mg/dL Urine Opiates Screen Not Detected (NotDetected) Ur Oxycodone Screen Not Detected (NotDetected) Urine Methadone Screen Not Detected (NotDetected) Ur Propoxyphene Screen Not Detected (NotDetected) Acetaminophen <10.0 ug/mL Ur Barbiturates Screen Not Detected (NotDetected) U Tricyclic Antidepress Not Detected (NotDetected) Ur Phencyclidine Scrn Not Detected (NotDetected) Ur Amphetamines Screen Not Detected (NotDetected) U Methamphetamines Scrn Not Detected (NotDetected) U Benzodiazepines Scrn Not Detected (NotDetected) [place] 0.3 mmol/L Urine Cocaine Screen Not Detected (NotDetected) U Marijuana (THC) Screen Not Detected (NotDetected) Serum Alcohol 246 H* mg/dL Disposition <Jaxson Renae - Last Filed: 10/13/21 01:03> Is patient prescribed a controlled substance at d/c from ED?: No Time of Disposition: 11:43 <Burke Hylton - Last Filed: 10/13/21 11:43> Clinical Impression: Depression Disposition: HOME SELF-CARE Condition: Stable Instructions (If sedation given, give patient instructions): Depression (ED), Help Prevent Suicide (ED) Additional Instructions: Please follow-up with primary care physician in the next day or 2 for recheck. Please follow-up with mental health services as instructed. Return to emergency department for thoughts of self-harm, worsening symptoms or other concerns. Referrals: Garrick Dow MD [Primary Care Provider] - 1-2 days
[2021-10-12 22:53] LABS: Basophils % (A) 1 %; Eosinophils # (A) 0.1 k/uL (0-0.7); Eosinophils % (A) 1 %; HCT 34.2 % (34.0-46.0); Lymphocytes # (A) 1.3 k/uL (1.0-4.8); Lymphocytes % (A) 31 %; MCH 28.7 pg (25.0-35.0); MCHC 32.2 g/dL (31.0-37.0); MCV 89.2 fL (80.0-100.0); Mean Platelet Volume 7.5; Monocytes # (A) 0.2 k/uL (0-1.0); Monocytes % (A) 4 %; Neutrophils # (A) 2.5 k/uL (1.3-7.7); Neutrophils % (A) 61 %; Platelet Count 222 k/uL (150-450); RBC 3.84 m/uL (3.80-5.40); RDW 14.5 % (11.5-15.5); WBC 4.1 k/uL (3.8-10.6)
[2021-10-12 23:08] LABS: ALT 33 U/L (4-34); AST 55 U/L (14-36); Acetaminophen <10.0 ug/mL; African American GFR (CKD) >90 (>60 ml/min/1.73 sqM); Albumin 3.9 g/dL (3.5-5.0); Alkaline Phosphatase 64 U/L (38-126); Anion Gap 13 mmol/L; Blood Urea Nitrogen 11 mg/dL (7-17); Calcium 8.5 mg/dL (8.4-10.2); Carbon Dioxide 23 mmol/L (22-30); Chloride 103 mmol/L (98-107); Glucose 78 mg/dL (74-99); Lithium 0.3 mmol/L; Non-African American GFR(CKD) >90 (>60 ml/min/1.73 sqM); Potassium 3.9 mmol/L (3.5-5.1); Salicylate <1.0 mg/dL; Sodium 139 mmol/L (137-145); Total Bilirubin 0.1 mg/dL (0.2-1.3); Total Protein 6.6 g/dL (6.3-8.2)
[2021-10-12 23:16] LABS: Alcohol 246 mg/dL
[2021-10-13 02:01] LABS: Appearance,Urine Clear (Clear); Bilirubin,Urine Negative (Negative); Blood,Urine Negative (Negative); Color,Urine Light Yellow; Glucose,Urine (UA) Negative (Negative); Ketones,Urine Negative (Negative); Leukocyte Esterase,Urine Negative (Negative); Nitrite,Urine Negative (Negative); Protein,Urine Negative (Negative); Specific Gravity,Urine 1.006 (1.001-1.035); Urobilinogen,Urine <2.0 mg/dL (<2.0)
[2021-10-13 02:11] LABS: Amphetamine Screen,Urine Not Detected (NotDetected); Barbiturate Screen,Urine Not Detected (NotDetected); Benzodiazepines Screen,Urine Not Detected (NotDetected); Cocaine Screen,Urine Not Detected (NotDetected); Methadone Screen, Urine Not Detected (NotDetected); Opiate Screen,Urine Not Detected (NotDetected); Oxycodone Screen, Urine Not Detected (NotDetected); Phencyclidine Screen,Urine Not Detected (NotDetected); Tricyclic Antidepressant,Urine Not Detected (NotDetected); Urn Cannabinoid Scrn Not Detected (NotDetected)
[2021-10-13 05:58] VITALS: RESP 16
[2021-10-13 11:50] VITALS: BP 122/78; PULSE 67
== END 2021-10-13 11:50 | disposition home or self-care (01) ==
LOC: EC 19:14
DX: F32.A Depression, unspecified (principal); R45.851 Suicidal ideations; Z88.0 Allergy status to penicillin
CPT/HCPCS: 36415; 80053; 80178; 85025; 81003; 80306; 80143; 80179; 99284; G0480; 80320

== ENCOUNTER 2022-12-27 11:52 | Inpatient (IN) | payer MEDICARE ==
[2022-12-27] MEDS ORDERED: LORazepam 2 MG/ML INJ IV STA (12:19)
[2022-12-27] MEDS ORDERED: THIAMINE 100 MG/ML 2 ML VIAL IM STA (12:20)
[2022-12-27] MEDS ORDERED: LORazepam 2 MG/ML INJ IV PRN (12:20)
[2022-12-27] MEDS ORDERED: SODIUM CHLORIDE 0.9% 1,000 ML IV STA (12:22)
--- NOTE | 2022-12-27 13:05 | ED ---
General Adult HPI - General Chief complaint: Anxiety Stated complaint: Mental Health Time Seen by Provider: 12/27/22 12:08 Source: patient, EMS, RN notes reviewed, old records reviewed Mode of arrival: EMS - History of Present Illness Initial comments: Patient is a 42-year-old female who presents emergency Department complaining of anxiety. She has a history of bipolar disorder, anxiety. Recently was let out of alf. States she has been drinking alcohol constantly since then. Does have a history of alcohol withdrawals and on-call withdrawal seizures. Endorses Constant panic attacks for the last 2 weeks since she got out of senior living. Also seeking evaluation by psychiatry. Denies any suicidal or homicidal ideations, attempts, plans. Denies any visual or auditory hallucinations. Denies any other drug use. States she just feels constantly anxious and is requesting for something to help. States she does not believe she is having any alcohol withdrawals but was drinking heavily earlier today. Denies any other acute complaints at this time. She is asking for something for anxiety. Denies any falls. Denies any chest pain, shortness of breath, abdominal pain, nausea, vomiting. - Related Data Home Medications Medication Instructions Recorded Confirmed [place] Carbonate ER [Lithobid] 450 mg PO BID 10/16/20 12/27/22 lamoTRIgine [LaMICtal] 150 mg PO BID 10/16/20 12/27/22 Escitalopram [Lexapro] 40 mg PO HS 12/06/20 12/27/22 Omeprazole 40 mg PO DAILY 04/20/21 12/27/22 Allergies Allergy/AdvReac Type Severity Reaction Status Date / Time amoxicillin Allergy Rash/Hives Verified 12/27/22 13:46 Review of Systems ROS Statement: Those systems with pertinent positive or pertinent negative responses have been documented in the HPI. Review of Systems: CONST: Denies fever EYES: Denies blurry vision ENT: Denies nasal congestion C/V: Denies Chest pain RESP: Denies shortness of breath GI: Denies abdominal pain : Denies dysuria SKIN: Denies rash. MSK: Denies joint pain. NEURO: Denies headache PSYCH: Denies suicidal and homicidal ideations/plans/attempts. Denies visual or auditory hallucinations. She endorses anxiety ROS Other: All systems not noted in ROS Statement are negative. Past Medical History Past Medical History: No Reported History Additional Past Medical History / Comment(s): withdrawl etoh seizures History of Any Multi-Drug Resistant Organisms: None Reported Past Surgical History: Adenoidectomy Additional Past Surgical History / Comment(s): poor historian Past Anesthesia/Blood Transfusion Reactions: No Reported Reaction Past Psychological History: Anxiety, Bipolar, Depression Smoking Status: Never smoker Past Alcohol Use History: Abuse, Daily, Heavy Past Drug Use History: None Reported - Past Family History Father Family Medical History: Unable to Obtain Mother Family Medical History: Unable to Obtain General Exam - General Exam Comments Initial Comments: General: Patient smells of alcohol and appears acutely intoxicated. Rocking in bed and appears anxious. HEAD: Normal with no signs of head trauma. EYES: PERRLA, EOMI, conjunctiva normal, no discharge.. 3 mm and equal bilaterally. ENT: Hearing grossly intact, normal oropharynx. RESPIRATORY: Clear breath sounds bilaterally. No wheezes, rales, or rhonchi. C/V: Regular rate and rhythm. S1 and S2 auscultated, peripheral pulses 2+ and intact throughout ABD: Abd is soft, nontender, nondistended EXT: Normal range of motion, no obvious deformity SKIN: No rashes or lesions observed on exposed skin. NEURO: Alert and oriented 4. No focal deficits.No tremors. No current signs of alcohol withdrawals at this time. Course Vital Signs 12/27/22 12/27/22 12:15 18:20 Temperature 98.2 F Pulse Rate 101 H 90 Respiratory 18 16 Rate Blood Pressure 132/82 116/75 O2 Sat by Pulse 98 98 Oximetry Medical Decision Making - Medical Decision Making Was pt. sent in by a medical professional or institution (, PA, PARTS ADVISOR, urgent care, hospital, or snf...) When possible be specific @ -No Did you speak to anyone other than the patient for history (EMS, parent, family, police, friend...)? What history was obtained from this source @ -No Did you review nursing and triage notes (agree or disagree)? Why? @ -I reviewed and agree with nursing and triage notes Were old charts reviewed (outside hosp., previous admission, EMS record, old EKG, old radiological studies, urgent care reports/EKG's, snf records)? Report findings @ -Old charts reviewed from September 2021 Differential Diagnosis (chest pain, altered mental status, abdominal pain women, abdominal pain men, vaginal bleeding, weakness, fever, dyspnea, syncope, headache, dizziness, GI bleed, back pain, seizure, CVA, palpatations, mental health, musculoskeletal)? @ -Differential Mental Health Depression, anxiety, bipolar, psychosis, schizophrenia, borderline personality, situational depression, adjustment disorder, behavioral disorder, brain tumor, malingering, substance abuse, encephalopathy, medication reaction, dementia, hypothyroidism, degenerative neurologic disorder, lupus, alcohol abuse, alcohol intoxication.... This is not meant to be all-inclusive list EKG interpreted by me (3pts min.). @ -None done X-rays interpreted by me (1pt min.). @ -None done CT interpreted by me (1pt min.). @ -None done U/S interpreted by me (1pt. min.). @ -None done What testing was considered but not performed or refused? (CT, X-rays, U/S, labs)? Why? @ -None What meds were considered but not given or refused? Why? @ -None Did you discuss the management of the patient with other professionals (professionals i.e. , PA, PARTS ADVISOR, lab, RT, psych nurse, family welfare social work professor, repairer wood furniture, teacher, service officer, bilingual case manager)? Give summary @ -No Was smoking cessation discussed for >3mins.? @ -No Was critical care preformed (if so, how long)? @ -Yes, 35 minutes Were there social determinants of health that impacted care today? How? (Homelessness, low income, unemployed, alcoholism, drug addiction, transportation, low edu. Level, literacy, decrease access to med. care, senior living, rehab)? @ -No Was there de-escalation of care discussed even if they declined (Discuss DNR or withdrawal of care, Hospice)? DNR status @ -No What co-morbidities impacted this encounter? (DM, HTN, Smoking, COPD, CAD, Cancer, CVA, ARF, Chemo, Hep., AIDS, mental health diagnosis, sleep apnea, morbid obesity)? @ -None Was patient admitted / discharged? Hospital course, mention meds given and route, prescriptions, significant lab abnormalities, going to OR and other pertinent info. @ -Based on the patient's presentation and physical exam, she is seeking psychiatric evaluation. She appears acutely intoxicated with alcohol and has a history of alcohol withdrawal seizures. Currently is not withdrawing. Vital s igns within acceptable limits. She is extremely anxious at this time. She was changed to green scrubs. Sitter was ordered. We will obtain basic laboratory studies as patient's BAT is 0.277. She'll receive Ativan. CIWA protocol was ordered. Patient was in agreement this plan. Patient's alcohol level is elevated to 356. Remainder the patient's labs are unremarkable. Patient is feeling improved after Ativan administration. I discussed with her that due to her alcohol intoxication, she will be medically admitted. She will be monitored for alcohol withdrawals. CIWA protocol was ordered. Psychiatry will evaluate her on an inpatient basis. Cipro was ordered. She was in agreement this plan. I spoke with the admitting physician, Dr. Camacho who accepted the patient. Psychiatry was consulted. Undiagnosed new problem with uncertain prognosis? @ -No Drug Therapy requiring intensive monitoring for toxicity (Heparin, Nitro, Ins ulin, Cardizem)? @ -No Were any procedures done? @ -No Diagnosis/symptom? @ -Acute alcohol intoxication Acute, or Chronic, or Acute on Chronic? @ -Acute Uncomplicated (without systemic symptoms) or Complicated (systemic symptoms)? @ -Uncomplicated Side effects of treatment? @ -No Exacerbation, Progression, or Severe Exacerbation? @ -No Poses a threat to life or bodily function? How? (Chest pain, [place], [place], pneumonia, PE, COPD, DKA, ARF, appy, cholecystitis, CVA, Diverticulitis, Homicidal, Suicidal, threat to staff... and all critical care pts) @ -Yes, history of alcohol withdrawal, alcohol withdrawal seizures which can be life-threatening. Diagnosis/symptom? @ -Anxiety, panic attack, history of bipolar disorder Acute, or Chronic, or Acute on Chronic? @ -Acute on chronic Uncomplicated (without systemic symptoms) or Complicated (systemic symptoms)? @ -Uncomplicated Side effects of treatment? @ -none Exacerbation, Progression, or Severe Exacerbation] @ -no Poses a threat to life or bodily function? @ -Yes, if uncontrolled could potentially result in harm to self or others. Diagnosis/symptom? @ -Encounter for psychiatric evaluation Acute, or Chronic, or Acute on Chronic? @ -Acute Uncomplicated (without systemic symptoms) or Complicated (systemic symptoms)? @ -Uncomplicated Side effects of treatment? @ -none Exacerbation, Progression, or Severe Exacerbation] @ -no Poses a threat to life or bodily function? @ -Yes, I did not address could potentially result in self harm or others him. - Lab Data Result diagrams: 12/27/22 12:49 12/27/22 14:45 Lab Results 12/27/22 12/27/22 12/27/22 Range/Units 12:49 12:49 14:45 WBC 4.0 (3.8-10.6) k/uL RBC 4.28 (3.80-5.40) m/uL Hgb 12.8 (11.4-16.0) gm/dL Hct 38.1 (34.0-46.0) % MCV 88.9 (80.0-100.0) fL MCH 29.8 (25.0-35.0) pg MCHC 33.6 (31.0-37.0) g/dL RDW 13.7 (11.5-15.5) % Plt Count 336 (150-450) k/uL MPV 7.3 Neutrophils % 48 % Lymphocytes % 38 % Monocytes % 10 % Eosinophils % 0 % Basophils % 1 % Neutrophils # 1.9 (1.3-7.7) k/uL Lymphocytes # 1.5 (1.0-4.8) k/uL Monocytes # 0.4 (0-1.0) k/uL Eosinophils # 0.0 (0-0.7) k/uL Basophils # 0.0 (0-0.2) k/uL Sodium 139 (137-145) mmol/L Potassium 5.5 H 4.7 (3.5-5.1) mmol/L Chloride 103 (98-107) mmol/L Carbon Dioxide 26 (22-30) mmol/L Anion Gap 10 mmol/L BUN 10 (7-17) mg/dL Creatinine 0.70 (0.52-1.04) mg/dL Est GFR (CKD-EPI)AfAm >90 (>60 ml/min/1.73 sqM) Est GFR (CKD-EPI)NonAf >90 (>60 ml/min/1.73 sqM) Glucose 92 (74-99) mg/dL Calcium 8.6 (8.4-10.2) mg/dL Salicylates <1.0 mg/dL Acetaminophen <10.0 ug/mL [place] 0.5 mmol/L Serum Alcohol 356 H* mg/dL Critical Care Time Critical Care Time: Yes Total Critical Care Time: 35 Critical Care Time: Upon my evaluation, this patient had a high probability of imminent or life- threatening deterioration due to anxiety, panic attack, encounter for psychiatric evaluation, acute alcohol intoxication with history of withdrawal, which required my direct attention, intervention, and personal management. I have personally provided 35 minutes of critical care time exclusive of time spent on separately billable procedures. Time includes review of laboratory data, radiology results, discussion with consultants, and monitoring for p otential decompensation. Interventions were performed as documented in my note. Disposition Clinical Impression: Panic attack, Anxiety, Encounter for psychiatric assessment, Alcohol intoxication Disposition: ADMITTED IP TO THIS HOSP Condition: Stable Time of Disposition: 14:52
[2022-12-27 13:13] LABS: Basophils % (A) 1 %; Eosinophils % (A) 0 %; HCT 38.1 % (34.0-46.0); HGB 12.8 gm/dL (11.4-16.0); Lymphocytes # (A) 1.5 k/uL (1.0-4.8); Lymphocytes % (A) 38 %; MCH 29.8 pg (25.0-35.0); MCHC 33.6 g/dL (31.0-37.0); MCV 88.9 fL (80.0-100.0); Mean Platelet Volume 7.3; Monocytes # (A) 0.4 k/uL (0-1.0); Monocytes % (A) 10 %; Neutrophils # (A) 1.9 k/uL (1.3-7.7); Neutrophils % (A) 48 %; Platelet Count 336 k/uL (150-450); RBC 4.28 m/uL (3.80-5.40); RDW 13.7 % (11.5-15.5)
[2022-12-27] MEDS ORDERED: ONDANSETRON 4 MG/2 ML VIAL IVP STA (13:15)
[2022-12-27 13:38] LABS: Acetaminophen <10.0 ug/mL; African American GFR (CKD) >90 (>60 ml/min/1.73 sqM); Anion Gap 10 mmol/L; Blood Urea Nitrogen 10 mg/dL (7-17); Calcium 8.6 mg/dL (8.4-10.2); Carbon Dioxide 26 mmol/L (22-30); Chloride 103 mmol/L (98-107); Glucose 92 mg/dL (74-99); Non-African American GFR(CKD) >90 (>60 ml/min/1.73 sqM); Salicylate <1.0 mg/dL; Sodium 139 mmol/L (137-145)
[2022-12-27 13:52] LABS: Alcohol 356 mg/dL; Potassium 5.5 mmol/L (3.5-5.1)
[2022-12-27] MEDS ORDERED: NALOXONE 0.4 MG/ML 1 ML VIAL IV PRN (15:04)
[2022-12-27 15:26] LABS: Lithium 0.5 mmol/L; Potassium 4.7 mmol/L (3.5-5.1)
[2022-12-27] MEDS: HEPARIN SODIUM,PORCINE/PF 5,000 UNIT/0.5 ML SYRINGE SQ SCH (17:35)
[2022-12-27] MEDS: LORazepam 2 MG/ML INJ IV PRN ×2 (17:50→22:01)
[2022-12-27] MEDS: SODIUM CHLORIDE 0.9% 1,000 ML IV SCH (19:31)
[2022-12-27] MEDS: lamoTRIgine 100 MG TAB PO SCH (20:20)
[2022-12-27] MEDS: LITHIUM CARBONATE ER 450 MG TABLET.ER PO SCH (20:20)
[2022-12-27] MEDS: ESCITALOPRAM 20 MG TAB PO SCH (20:20)
--- NOTE | 2022-12-27 22:14 | P.HPIM ---
History of Present Illness H&P Date: 12/27/22 Chief Complaint: Alcohol intoxication Patient is a 42-year-old female with a known history of severe alcohol abuse, anxiety/depression, bipolar disorder presented to ER with alcohol intoxication. Patient was recently out of long-term and stated that she has been drinking con stantly since then. Patient is also saying she has been having constant panic attacks for the last 2 weeks since she got out of custodial. Patient does have a history of alcohol withdrawal symptoms and seizures. Denies any suicidal or homicidal ideation. Currently patient is drowsy and intoxicated. She has been very anxious. Denies any complaints of chest pain or shortness of breath. No nausea vomiting abdominal pain or diarrhea. No cough or sputum production. No fever no chills. Laboratory data showed WBC 4.0 hemoglobin 12.8 and platelets 336 sodium 139 potassium 5.5 moderately hemolyzed and repeat 4.7, BUN 10 and creatinine 0.70 and lithium level is 0.5 and serum alcohol level is 356. Acute alcohol intoxication History of alcohol withdrawal symptoms and seizures. Anxiety/depression and panic attacks History of bipolar disorder Heavy alcohol use on daily basis DVT prophylaxis Plan: Patient will be continued on IV hydration. Continue with alcohol withdrawal protocol. Repeat potassium level is 4.7. Continue with thiamine and multivitamin supplementation. Monitor for alcohol withdrawal symptoms. Psychiatry service was consulted due to panic attacks and anxiety and history of bipolar disorder. Follow-up closely. Review of Systems ROS unobtainable: due to mental status Past Medical History Past Medical History: No Reported History Additional Past Medical History / Comment(s): withdrawl etoh seizures History of Any Multi-Drug Resistant Organisms: None Reported Past Surgical History: Adenoidectomy Additional Past Surgical History / Comment(s): poor historian Past Anesthesia/Blood Transfusion Reactions: No Reported Reaction Past Psychological History: Anxiety, Bipolar, Depression Smoking Status: Never smoker Past Alcohol Use History: Abuse, Daily, Heavy Past Drug Use History: None Reported - Past Family History Father Family Medical History: Unable to Obtain Mother Family Medical History: Unable to Obtain Medications and Allergies Home Medications Medication Instructions Recorded Confirmed Type [place] Carbonate ER [Lithobid] 450 mg PO BID 10/16/20 12/27/22 History lamoTRIgine [LaMICtal] 150 mg PO BID 10/16/20 12/27/22 History Escitalopram [Lexapro] 40 mg PO HS 12/06/20 12/27/22 History Omeprazole 40 mg PO DAILY 04/20/21 12/27/22 History Allergies Allergy/AdvReac Type Severity Reaction Status Date / Time amoxicillin Allergy Rash/Hives Verified 12/27/22 13:46 Physical Exam Vitals: Vital Signs Temp Pulse Resp BP Pulse Ox 12/27/22 18:20 90 16 116/75 98 12/27/22 12:15 98.2 F 101 H 18 132/82 98 Intake and Output 12/27/22 12/27/22 12/27/22 06:59 14:59 22:59 Other: Weight 58.967 kg Results CBC & Chem 7: 12/27/22 12:49 12/27/22 14:45 Labs: Abnormal Lab Results - Last 24 Hours (Table) 12/27/22 Range/Units 12:49 Potassium 5.5 H (3.5-5.1) mmol/L Serum Alcohol 356 H* mg/dL Thrombosis Risk Factor Assmnt - DVT/VTE Prophylaxis DVT/VTE Prophylaxis: Pharmacologic Prophylaxis ordered
[2022-12-27] MEDS ORDERED: TEMAZEPAM 7.5 MG CAP PO PRN (23:19)
[2022-12-28] MEDS: MELATONIN 5 MG TABLET PO SCH ×2 (02:25→22:03)
[2022-12-28] MEDS: HEPARIN SODIUM,PORCINE/PF 5,000 UNIT/0.5 ML SYRINGE SQ SCH ×5 (02:25→23:52)
[2022-12-28] MEDS: ONDANSETRON 4 MG/2 ML VIAL IVP PRN ×3 (02:28→15:15)
[2022-12-28] MEDS: SODIUM CHLORIDE 0.9% 1,000 ML IV SCH ×2 (04:08→18:58)
[2022-12-28] MEDS: lamoTRIgine 100 MG TAB PO SCH ×2 (08:02→22:02)
[2022-12-28] MEDS: LITHIUM CARBONATE ER 450 MG TABLET.ER PO SCH ×2 (08:09→22:03)
[2022-12-28] MEDS: THIAMINE 100 MG TAB PO SCH (08:09)
[2022-12-28] MEDS: PANTOPRAZOLE 40 MG TABLET PO SCH (08:09)
[2022-12-28 09:26] LABS: African American GFR (CKD) 123.5 (60.0-200.0); Anion Gap 12.3 mmol/L (10.00-18.00); BUN/Creat Ratio 10.35 Ratio (12.00-20.00); Calcium 8.5 mg/dL (8.7-10.3); Carbon Dioxide 20.5 mmol/L (20.0-27.5); Non-African American GFR(CKD) 106.5 (60.0-200.0)
[2022-12-28] MEDS: LORazepam 2 MG/ML INJ IV PRN ×5 (09:40→22:05)
[2022-12-28 10:31] LABS: Basophils # (A) 0.07 X 10*3/uL (0.00-0.10); Basophils % (A) 1.6 %; Eosinophils # (A) 0.02 X 10*3/uL (0.04-0.35); Eosinophils % (A) 0.4 %; HCT 33.7 % (37.2-46.3); HGB 10.6 g/dL (12.0-15.0); Immature Grans, Automated 0.2 %; Lymphocytes # (A) 0.93 X 10*3/uL (0.90-5.00); Lymphocytes % (A) 20.7 %; MCH 29.6 pg (27.0-32.0); MCHC 31.5 g/dL (32.0-37.0); MCV 94.1 fL (80.0-97.0); Mean Platelet Volume 9.3 fL (9.5-12.2); Monocytes % (A) 11.1 %; NRBC Per 100 WBC 0 /100 WBCS (0.0-0.0); Neutrophils # (A) 2.97 X 10*3/uL (1.80-7.70); Platelet Count 260 X 10*3/uL (140-440); RBC 3.58 X 10*6/uL (4.10-5.20); RDW 13.5 % (11.5-14.5)
[2022-12-28 10:47] LABS: Amphetamine Screen,Urine Not Detected (NotDetected); Barbiturate Screen,Urine Not Detected (NotDetected); Benzodiazepines Screen,Urine Detected (NotDetected); Cocaine Screen,Urine Not Detected (NotDetected); Methadone Screen, Urine Not Detected (NotDetected); Opiate Screen,Urine Not Detected (NotDetected); Oxycodone Screen, Urine Not Detected (NotDetected); Phencyclidine Screen,Urine Not Detected (NotDetected); Tricyclic Antidepressant,Urine Not Detected (NotDetected); Urn Cannabinoid Scrn Not Detected (NotDetected)
--- NOTE | 2022-12-28 15:22 | P.PN ---
Subjective Progress Note Date: 12/28/22 Patient is a 42-year-old female with a known history of severe alcohol abuse, anxiety/depression, bipolar disorder presented to ER with alcohol intoxication. Patient was recently out of care home and stated that she has been drinking constantly since then. Patient is also saying she has been having constant panic attacks for the last 2 weeks since she got out of longterm. Patient does have a history of alcohol withdrawal symptoms and seizures. Denies any suicidal or homicidal ideation. Currently patient is drowsy and intoxicated. She has been very anxious. Denies any complaints of chest pain or shortness of breath. No nausea vomiting abdominal pain or diarrhea. No cough or sputum production. No fever no chills. Laboratory data showed WBC 4.0 hemoglobin 12.8 and platelets 336 sodium 139 potassium 5.5 moderately hemolyzed and repeat 4.7, BUN 10 and creatinine 0.70 and lithium level is 0.5 and serum alcohol level is 356. 12/28/2022 Patient is seen and evaluated continues to be a hold in the ER currently sleeping with a sitter at the bedside and initially did have psychiatric evaluation on consultation although was told by nursing staff that EPS had told them to cancel the consult and place a new consult when patient was medically stable. Patient is afebrile denies chest pain or shortness of breath. Patient is continuing to sleep and did require a dose of IV Ativan this morning. Patient is continued on IV hydration and has not been waking up much to eat although she reports she has been picking at meals occasionally. Patient denies nausea or vomiting at this time but was nauseated earlier. Patient denies chest pain or shortness of breath. When asking the patient if she was suicidal patient reports she is depressed but she is denying any suicidal ideation or thoughts of wanting to harm herself or others. Review of systems: Constitutional: No reports of fatigue, fever, or chills Cardiovascular: No reports of chest pain or palpitations Respiratory: No reports of shortness of breath or cough GI: No reports of nausea, vomiting, or diarrhea : No reports of dysuria or retention Neurovascular: No reports of weakness or numbness All medications have been reviewed Active Medications Escitalopram Oxalate (Escitalopram 20 Mg Tab) 40 mg PO HS [facility] Last Admin: 12/27/22 20:20 Dose: 40 mg Heparin Sodium (Porcine) (Heparin Sodium,Porcine/Pf 5,000 Unit/0.5 Ml Syringe) 5,000 unit SQ Q8HR [facility] Last Admin: 12/28/22 15:07 Dose: Not Given Sodium Chloride (Saline 0.9%) 1,000 mls @ 75 mls/hr IV .[id number] [facility] Last Admin: 12/28/22 04:08 Dose: Not Given Lamotrigine (Lamotrigine 100 Mg Tab) 150 mg PO BID [facility] Last Admin: 12/28/22 08:02 Dose: 150 mg [place] Carbonate ([place] Carbonate Er 450 Mg Tablet.Er) 450 mg PO BID [facility] Last Admin: 12/28/22 08:09 Dose: 450 mg Lorazepam (Lorazepam 2 Mg/Ml Inj) 1 mg IV Q1HR PRN PRN Reason: CIWA 10 to 15 Lorazepam (Lorazepam 2 Mg/Ml Inj) 1 mg IV Q2HR PRN PRN Reason: CIWA 8 or 9 Last Admin: 12/28/22 13:21 Dose: 1 mg Lorazepam (Lorazepam 2 Mg/Ml Inj) 2 mg IV Q10M PRN PRN Reason: CIWA 16 or higher Stop: 12/29/22 12:20 Last Admin: 12/28/22 04:50 Dose: 2 mg Lorazepam (Lorazepam 1 Mg Tab) 1 mg PO Q1HR PRN PRN Reason: Alcohol Withdrawal Melatonin (Melatonin 5 Mg Tablet) 10 mg PO HS [facility] Last Admin: 12/28/22 02:25 Dose: 10 mg Naloxone HCl (Naloxone 0.4 Mg/Ml 1 Ml Vial) 0.2 mg IV Q2M PRN PRN Reason: Opioid Reversal Ondansetron HCl (Ondansetron 4 Mg/2 Ml Vial) 4 mg IVP Q8HR PRN PRN Reason: Nausea And Vomiting Last Admin: 12/28/22 09:39 Dose: 4 mg Pantoprazole Sodium (Pantoprazole 40 Mg Tablet) 40 mg PO AC-BRKFST [facility] Last Admin: 12/28/22 08:09 Dose: 40 mg Temazepam (Temazepam 7.5 Mg Cap) 7.5 mg PO HS PRN PRN Reason: Insomnia Last Admin: 12/27/22 23:55 Dose: 7.5 mg Thiamine HCl (Thiamine 100 Mg Tab) 100 mg PO DAILY [facility] Last Admin: 12/28/22 08:09 Dose: 100 mg Physical exam: Gen: This is a 42-year-old female who is lethargic and asleep although arousable alert and oriented 3, well-developed, well-nourished HEENT: Head is atraumatic, normocephalic. Pupils equal, round. Sclerae is anicteric. NECK: Supple. No JVD. No lymphadenopathy. No thyromegaly. LUNGS: Clear to auscultation. No wheezes or rhonchi. No intercostal retractions. HEART: Regular rate and rhythm. No murmur. ABDOMEN: Soft. Bowel sounds are present. No masses. No tenderness. EXTREMITIES: No pedal edema. No calf tenderness. NEUROLOGICAL: Patient is asleep but easily arousable, alert and oriented x3. Cranial nerves 2 through 12 are grossly intact. Assessment: Acute alcohol intoxication History of alcohol withdrawal symptoms and seizures. Anxiety/depression and panic attacks History of bipolar disorder Heavy alcohol use on daily basis DVT prophylaxis Full code Plan: Patient will be continued on IV hydration. Continue with alcohol withdrawal protocol. Follow-up labs reviewed and within normal limits and repeat potassium this morning is 4.0. Sodium slightly low at 133 and continued on hydration will decrease the rate some and encouraged oral intake Patient reports she is depressed and adamantly denies suicidal ideation or thoughts of wanting to harm herself There is a sitter at the bedside and EPS evaluated the patient and instructed the nurse to cancel the consult and have medical replace a consult once patient was medically stable Psychiatry was consulted in the ER for her past medical history of bipolar disorder along with anxiety and depression for evaluation and medication adjustments as needed Patient again denies suicidal ideation or thoughts of wanting to harm herself with nursing staff as well as technical report writer Will discontinue suicide sitter and continue on CIWA protocol and encouraged increased activity as tolerated and will also add Librium taper UDS other than benzos were negative and serum alcohol on admission was 356. The impression and plan of care has been dictated by Octavia Phelps Nurse Practitioner as directed. Dr. Doug MD I have performed a history and examination and MDM of this patient, discussed the same with the dictator, and agree with the dictator's assessment and plan as written ,documented as a scribe. Based on total visit time, I have performed more than 50% of the visit. Objective - Vital Signs Vital signs: Vital Signs Temp 98.2 F 03/16/23 12:15 Pulse 118 H 12/28/22 13:07 Resp 16 12/28/22 10:16 BP 110/76 12/28/22 13:07 Pulse Ox 95 12/28/22 13:07 FiO2 Intake & Output 12/27/22 12/28/22 12/28/22 18:59 06:59 18:59 Weight 58.967 kg - Labs CBC & Chem 7: 12/28/22 05:34 12/28/22 05:34 Labs: Abnormal Lab Results - Last 24 Hours (Table) 12/27/22 12/28/22 12/28/22 Range/Units 09:50 05:34 05:34 RBC 3.58 L (4.10-5.20) X 10*6/uL Hgb 10.6 L (12.0-15.0) g/dL Hct 33.7 L (37.2-46.3) % MCHC 31.5 L (32.0-37.0) g/dL MPV 9.3 L (9.5-12.2) fL Eosinophils # 0.02 L (0.04-0.35) X 10*3/uL Sodium 133 L (135-145) mmol/L BUN 7.0 L (9.0-27.0) mg/dL BUN/Creatinine Ratio 10.35 L (12.00-20.00) Ratio Calcium 8.5 L (8.7-10.3) mg/dL U Benzodiazepines Scrn Detected H (NotDetected)
[2022-12-28] MEDS: ESCITALOPRAM 20 MG TAB PO SCH (22:03)
[2022-12-28] MEDS: chlordiazePOXIDE 25 MG CAP PO SCH (22:03)
[2022-12-29] MEDS: HEPARIN SODIUM,PORCINE/PF 5,000 UNIT/0.5 ML SYRINGE SQ SCH ×4 (00:39→23:56)
[2022-12-29] MEDS: LORazepam 2 MG/ML INJ IV PRN ×5 (03:18→14:13)
[2022-12-29] MEDS: ONDANSETRON 4 MG/2 ML VIAL IVP PRN ×2 (03:18→12:44)
[2022-12-29] MEDS: chlordiazePOXIDE 25 MG CAP PO SCH ×4 (08:02→21:24)
[2022-12-29] MEDS: lamoTRIgine 100 MG TAB PO SCH ×2 (08:03→21:24)
[2022-12-29] MEDS: THIAMINE 100 MG TAB PO SCH (08:03)
[2022-12-29] MEDS: PANTOPRAZOLE 40 MG TABLET PO SCH (08:03)
[2022-12-29] MEDS: LITHIUM CARBONATE ER 450 MG TABLET.ER PO SCH ×2 (08:04→21:24)
[2022-12-29 09:44] LABS: African American GFR (CKD) 128.5 (60.0-200.0); BUN/Creat Ratio 6.83 Ratio (12.00-20.00); Blood Urea Nitrogen 4.1 mg/dL (9.0-27.0); Calcium 8.6 mg/dL (8.7-10.3); Non-African American GFR(CKD) 110.9 (60.0-200.0); Potassium 4.1 mmol/L (3.5-5.5)
[2022-12-29 09:48] LABS: Basophils # (A) 0.05 X 10*3/uL (0.00-0.10); Basophils % (A) 1.5 %; Eosinophils # (A) 0.06 X 10*3/uL (0.04-0.35); Eosinophils % (A) 1.8 %; HCT 35.5 % (37.2-46.3); HGB 10.9 g/dL (12.0-15.0); Immature Grans, Automated 0.3 %; Lymphocytes # (A) 0.93 X 10*3/uL (0.90-5.00); Lymphocytes % (A) 27.8 %; MCH 29.4 pg (27.0-32.0); MCHC 30.7 g/dL (32.0-37.0); MCV 95.7 fL (80.0-97.0); Mean Platelet Volume 9.7 fL (9.5-12.2); Monocytes % (A) 11.9 %; NRBC Per 100 WBC 0 /100 WBCS (0.0-0.0); Neutrophils % (A) 56.7 %; Platelet Count 240 X 10*3/uL (140-440); RBC 3.71 X 10*6/uL (4.10-5.20); RDW 13.3 % (11.5-14.5); WBC 3.35 X 10*3/uL (4.50-10.00)
[2022-12-29] MEDS: SODIUM CHLORIDE 0.9% 1,000 ML IV SCH (10:45)
[2022-12-29] MEDS: LORazepam 1 MG TAB PO PRN (12:47)
--- NOTE | 2022-12-29 17:27 | P.PN ---
Subjective Progress Note Date: 12/29/22 Patient is a 42-year-old female with a known history of severe alcohol abuse, anxiety/depression, bipolar disorder presented to ER with alcohol intoxication. Patient was recently out of alf and stated that she has been drinking constantly since then. Patient is also saying she has been having constant panic attacks for the last 2 weeks since she got out of [facility]. Patient does have a history of alcohol withdrawal symptoms and seizures. Denies any suicidal or homicidal ideation. Currently patient is drowsy and intoxicated. She has been very anxious. Denies any complaints of chest pain or shortness of breath. No nausea vomiting abdominal pain or diarrhea. No cough or sputum production. No fever no chills. Laboratory data showed WBC 4.0 hemoglobin 12.8 and platelets 336 sodium 139 potassium 5.5 moderately hemolyzed and repeat 4.7, BUN 10 and creatinine 0.70 and lithium level is 0.5 and serum alcohol level is 356. 12/28/2022 Patient is seen and evaluated continues to be a hold in the ER currently sleeping with a sitter at the bedside and initially did have psychiatric evaluation on consultation although was told by nursing staff that [facility] had told them to cancel the consult and place a new consult when patient was medically stable. Patient is afebrile denies chest pain or shortness of breath. Patient is continuing to sleep and did require a dose of IV Ativan this morning. Patient is continued on IV hydration and has not been waking up much to eat although she reports she has been picking at meals occasionally. Patient denies nausea or vomiting at this time but was nauseated earlier. Patient denies chest pain or shortness of breath. When asking the patient if she was suicidal patient reports she is depressed but she is denying any suicidal ideation or thoughts of wanting to harm herself or others. 12/29/2022 Patient is seen in follow-up today maintained on CIWA protocol and per nursing staff patient has been requesting IV Ativan and discussed with nursing staff about continuing Librium taper along with oral Ativan and limiting IV Ativan use. Patient tolerated diet eating a little more and sodium improved will discontinue IV fluids and encouraged to increase activity as tolerated. We'll monitor closely and possibly consider psychiatric evaluation. Patient is not suicidal and not petitioned. Home medications reviewed and resumed and will continue. Patient denies chest pain or shortness of breath. Review of systems: Constitutional: No reports of fatigue, fever, or chills Cardiovascular: No reports of chest pain or palpitations Respiratory: No reports of shortness of breath or cough GI: No reports of nausea, vomiting, or diarrhea : No reports of dysuria or retention Neurovascular: No reports of weakness or numbness All medications have been reviewed Active Medications Chlordiazepoxide HCl (Chlordiazepoxide 25 Mg Cap) 25 mg PO TID [facility] Last Admin: 12/29/22 16:50 Dose: 25 mg Escitalopram Oxalate (Escitalopram 20 Mg Tab) 40 mg PO HS [facility] Last Admin: 12/28/22 22:03 Dose: 40 mg Heparin Sodium (Porcine) (Heparin Sodium,Porcine/Pf 5,000 Unit/0.5 Ml Syringe) 5,000 unit SQ Q8HR [facility] Last Admin: 12/29/22 16:50 Dose: Not Given Lamotrigine (Lamotrigine 100 Mg Tab) 150 mg PO BID [facility] Last Admin: 12/29/22 08:03 Dose: 150 mg [place] Carbonate ([place] Carbonate Er 450 Mg Tablet.Er) 450 mg PO BID [facility] Last Admin: 12/29/22 08:04 Dose: 450 mg Lorazepam (Lorazepam 2 Mg/Ml Inj) 1 mg IV Q1HR PRN PRN Reason: CIWA 10 to 15 Last Admin: 12/28/22 22:05 Dose: 1 mg Lorazepam (Lorazepam 2 Mg/Ml Inj) 1 mg IV Q2HR PRN PRN Reason: CIWA 8 or 9 Last Admin: 12/29/22 14:13 Dose: 1 mg Lorazepam (Lorazepam 1 Mg Tab) 1 mg PO Q1HR PRN PRN Reason: Alcohol Withdrawal Last Admin: 12/29/22 12:47 Dose: 1 mg Melatonin (Melatonin 5 Mg Tablet) 10 mg PO [facility] Last Admin: 12/28/22 22:03 Dose: 10 mg Naloxone HCl (Naloxone 0.4 Mg/Ml 1 Ml Vial) 0.2 mg IV Q2M PRN PRN Reason: Opioid Reversal Ondansetron HCl (Ondansetron 4 Mg/2 Ml Vial) 4 mg IVP Q8HR PRN PRN Reason: Nausea And Vomiting Last Admin: 12/29/22 12:44 Dose: 4 mg Pantoprazole Sodium (Pantoprazole 40 Mg Tablet) 40 mg PO AC-BRKFST [facility] Last Admin: 12/29/22 08:03 Dose: 40 mg Temazepam (Temazepam 7.5 Mg Cap) 7.5 mg PO HS PRN PRN Reason: Insomnia Last Admin: 12/27/22 23:55 Dose: 7.5 mg Thiamine HCl (Thiamine 100 Mg Tab) 100 mg PO DAILY [facility] Last Admin: 12/29/22 08:03 Dose: 100 mg Physical exam: Gen: This is a 42-year-old female who is asleep although arousable alert and oriented 3, well-developed, well-nourished HEENT: Head is atraumatic, normocephalic. Pupils equal, round. Sclerae is anicteric. NECK: Supple. No JVD. No lymphadenopathy. No thyromegaly. LUNGS: Clear to auscultation. No wheezes or rhonchi. No intercostal retractions. HEART: Regular rate and rhythm. No murmur. ABDOMEN: Soft. Bowel sounds are present. No masses. No tenderness. EXTREMITIES: No pedal edema. No calf tenderness. NEUROLOGICAL: Patient is asleep but easily arousable, alert and oriented x3. Cranial nerves 2 through 12 are grossly intact. Assessment: Acute alcohol intoxication History of alcohol withdrawal symptoms and seizures. Anxiety/depression and panic attacks History of bipolar disorder Heavy alcohol use on daily basis DVT prophylaxis Full code Plan: Patient will be continued CIWA protocol and will add Librium and continue to encourage oral Ativan and limit the use of IV as patient has been requesting it every 2 hours Patient's sodium improved patient is tolerating more intake and will discontinue IV fluids Encouraged being awake more often and increased activity as tolerated Home medications reviewed and resumed and will continue Will monitor closely and follow-up if patient is requiring psychiatric consultation. Patient is depressed although denying suicidal ideation Was told by [facility] nurse that psychiatry needs to be re-consulted once patient is medically clear and stable Possible discharge in the next 24-48 hours The impression and plan of care has been dictated as a scribe by Octavia Phelps, Nurse Practitioner as directed. Dr. Doug MD I have performed a history and examination and MDM of this patient, discussed the same with the dictator, and will be documented as a scribe. Based on total visit time, I have performed more than 50% of the visit. Objective - Vital Signs Vital signs: Vital Signs Temp 98.3 F 12/29/22 07:55 Pulse 85 12/29/22 07:55 Resp 18 12/29/22 07:55 BP 132/92 12/29/22 07:55 Pulse Ox 97 12/29/22 07:55 FiO2 Intake & Output 12/28/22 12/29/22 12/29/22 18:59 06:59 18:59 Weight 62.5 kg Other: Voiding Method Toilet # Voids 2 1 - Labs CBC & Chem 7: 12/29/22 05:16 12/29/22 05:16 Labs: Abnormal Lab Results - Last 24 Hours (Table) 12/29/22 12/29/22 Range/Units 05:16 05:16 WBC 3.35 L (4.50-10.00) X 10*3/uL RBC 3.71 L (4.10-5.20) X 10*6/uL Hgb 10.9 L (12.0-15.0) g/dL Hct 35.5 L (37.2-46.3) % MCHC 30.7 L (32.0-37.0) g/dL BUN 4.1 L (9.0-27.0) mg/dL BUN/Creatinine Ratio 6.83 L (12.00-20.00) Ratio Calcium 8.6 L (8.7-10.3) mg/dL
[2022-12-29] MEDS: MELATONIN 5 MG TABLET PO SCH (21:24)
[2022-12-29] MEDS: ESCITALOPRAM 20 MG TAB PO SCH (21:24)
[2022-12-30] MEDS: LORazepam 2 MG/ML INJ IV PRN ×2 (02:01→06:24)
[2022-12-30] MEDS: chlordiazePOXIDE 25 MG CAP PO SCH ×3 (08:15→21:28)
[2022-12-30] MEDS: PANTOPRAZOLE 40 MG TABLET PO SCH (08:15)
[2022-12-30] MEDS: HEPARIN SODIUM,PORCINE/PF 5,000 UNIT/0.5 ML SYRINGE SQ SCH (08:15)
[2022-12-30] MEDS: lamoTRIgine 100 MG TAB PO SCH ×2 (08:16→21:28)
[2022-12-30] MEDS: THIAMINE 100 MG TAB PO SCH (08:16)
[2022-12-30] MEDS: LITHIUM CARBONATE ER 450 MG TABLET.ER PO SCH ×2 (08:17→21:28)
[2022-12-30] MEDS: LORazepam 1 MG TAB PO PRN ×5 (09:21→19:20)
--- NOTE | 2022-12-30 16:49 | P.CN ---
Psychiatric Consult - . Consult date: 12/30/22 Consult:: 12/30/22 16:22 IDENTIFYING DATA: This patient is a 42-year-old female REASON FOR REFERRAL: Psychiatry was consulted for anxiety and depression HISTORY OF PRESENT ILLNESS: The patient presented to the hospital with alcohol intoxication and concern for alcohol withdrawal. Patient reportedly has a history of alcohol withdrawal seizures and therefore was hospitalized. Patient was seen bedside this afternoon. She describes that since she was released from halfway 2 weeks ago, she is been during drinking about 10 beer daily. She currently states that she is having panic attacks although appears to be in no acute distress on exam. However, patient states that her increased level of anxiety is the trigger for drinking. She is endorses using alcohol as a "crutch". Patient admits to having gotten a DUI due to drinking. She endorses that alcohol has had a negative impact on life but when this provider attempts to discuss alcohol craving medications to help maintain sobriety, patient becomes tearful and says "but then how will I be able to drink?" Patient is vaguely and superficially interested in sobriety. She reports having been to rehab multiple times in the past including in [place] and at [facility] in [place]. She states that she was active in [facility] for number of years but is not currently. Patient denies depressed mood currently but reports having high anxiety, which is expected due to her current state of alcohol withdrawal. She also appears to have low frustration tolerance. She is currently scoring 5-6 on CIWA and was given Ativan 1 mg at 0624 and another 1 mg at 1339 today. Li level was 0.5 on 12/27/22 At this time patient denies any suicidal or homicidal ideations, intent or plan. Patient denies any auditory, visual hallucinations and denies any paranoia or delusions. Patient endorses a history of poor sleep and elevated energy says she has a diagnosis of bipolar 2 by her psychiatrist outpatient. PAST PSYCHIATRIC HISTORY: Patient endorses a history of diagnosis of bipolar 2 disorder, borderline personality disorder, anxiety disorder, alcohol use disorder. She reports doing well on her current medication regimen for her mental health. She denies side effects to the medications. Patient is currently on Lexapro 40 mg at bedtime, Lamictal 150 mg twice a day, lithium 450 mg twice a day, melatonin 10 mg at bedtime, Restoril 7.5 mg when necessary, and thiamine. PAST MEDICAL HISTORY: [denies]. ALLERGIES: as per EMR. CHEMICAL DEPENDENCY HISTORY: Past Medical History: No Reported History Additional Past Medical History / Comment(s): withdrawl etoh seizures History of Any Multi-Drug Resistant Organisms: None Reported Past Surgical History: Adenoidectomy Additional Past Surgical History / Comment(s): poor historian Past Anesthesia/Blood Transfusion Reactions: No Reported Reaction Past Psychological History: Anxiety, Bipolar, Depression Smoking Status: Never smoker Past Alcohol Use History: Abuse, Daily, Heavy Past Drug Use History: None Reported FAMILY PSYCHIATRIC/SUBSTANCE USE HISTORY: She states that her mother's side were heavy drinkers and says she suspects her father suffers from another type of mental illness but is unsure of what that might be. SOCIAL HISTORY: Patient states that she lives by herself with a Siamese cat. She denies having been or having any children. She states that she was recently in halfway after absconding for probation from a DUI. MENTAL STATUS EXAM: General Appearance: Patient appears to be stated age is somnolent, somewhat pleasant, and cooperative. Patient appears to have poor hygiene and grooming wearing hospital gown with poor eye contact. Behavior: Patient is calmly lying in bed without any agitated behavior. Speech: Patient's speech is fluent and nonpressured. Mood/Affect: Patient reports their mood is "anxious", affect is congruent Suicidality/Homicidality: Patient denies having any suicidal or homicidal ideation intent or plan. Perceptions: Patient denies any visual hallucinations and denies any auditory hallucinations Though content/process: There is no evidence of any delusional thought content and thought process is linear and goal-directed. Memory and concentration: AOX3, grossly intact for the purposes of this session. Judgment and insight: Impulsive and poor IMPRESSIONS: Alcohol use disorder, severe, currently in withdrawal Anxiety disorder secondary to alcohol withdrawal Bipolar 2 disorder, per history Hx of anxiety disorder Cluster B traits PLAN: -At this time patient DOES NOT meet criteria for inpatient psychiatric admission. -Would recommend the following medication changes/additions: Continue with Librium taper Will start Ativan 1 mg BID today. Decreased to 1 mg daily tomorrow morning and discontinued thereafter. Plan for Naltrexone 50 mg daily for alcohol cravings, pending liver enzymes on CMP ordered for tomorrow AM Decrease Lexapro to 30 mg at bedtime as the supratherapeutic dose might be contributing to anxiety Continue home doses of psychotropic medications,, Lamictal 150 mg twice a day, lithium 450 mg twice a day, melatonin 10 mg at bedtime Recommend discontinuing Restoril. Would not recommend long-term use of Restoril in the context of alcohol use given the risk of respiratory depression and . Chronic alcohol use interferes with sleep cycle -Continue CIWA protocol with PRN Ativan for alcohol withdrawal per primary team. Continue to monitor vital signs. VSS -Pit Steward spoke with patient about substance abuse and the harmful effects on medical and mental health, patient verbally understood and agreed. -asbestos removal worker to provide patient substance use treatment resources including AA/NA meetings in the community. -asbestos removal worker to provide patient with access line number to call for inpatient substance rehab -Communicated plan to patient's nurse -Psychiatry will follow tomorrow then likely sign off. -Please contact with any questions.
[2022-12-30] MEDS ORDERED: ACETAMINOPHEN TAB 500 MG TAB PO STA (18:46)
[2022-12-30] MEDS ORDERED: ESCITALOPRAM 10 MG TAB PO SCH (21:00)
[2022-12-30] MEDS: LORazepam 1 MG TAB PO SCH (21:28)
[2022-12-30] MEDS: MELATONIN 5 MG TABLET PO SCH (21:28)
--- NOTE | 2022-12-31 01:39 | P.PN ---
Subjective Progress Note Date: 12/30/22 Patient is a 42-year-old female with a known history of severe alcohol abuse, anxiety/depression, bipolar disorder presented to ER with alcohol intoxication. Patient was recently out of nursing home and stated that she has been drinking constantly since then. Patient is also saying she has been having constant panic attacks for the last 2 weeks since she got out of [facility]. Patient does have a history of alcohol withdrawal symptoms and seizures. Denies any suicidal or homicidal ideation. Currently patient is drowsy and intoxicated. She has been very anxious. Denies any complaints of chest pain or shortness of breath. No nausea vomiting abdominal pain or diarrhea. No cough or sputum production. No fever no chills. Laboratory data showed WBC 4.0 hemoglobin 12.8 and platelets 336 sodium 139 potassium 5.5 moderately hemolyzed and repeat 4.7, BUN 10 and creatinine 0.70 and lithium level is 0.5 and serum alcohol level is 356. 12/28/2022 Patient is seen and evaluated continues to be a hold in the ER currently sleeping with a sitter at the bedside and initially did have psychiatric evaluation on consultation although was told by nursing staff that [facility] had told them to cancel the consult and place a new consult when patient was medically stable. Patient is afebrile denies chest pain or shortness of breath. Patient is continuing to sleep and did require a dose of IV Ativan this morning. Patient is continued on IV hydration and has not been waking up much to eat although she reports she has been picking at meals occasionally. Patient denies nausea or vomiting at this time but was nauseated earlier. Patient denies chest pain or shortness of breath. When asking the patient if she was suicidal patient reports she is depressed but she is denying any suicidal ideation or thoughts of wanting to harm herself or others. 12/29/2022 Patient is seen in follow-up today maintained on CIWA protocol and per nursing staff patient has been requesting IV Ativan and discussed with nursing staff about continuing Librium taper along with oral Ativan and limiting IV Ativan use. Patient tolerated diet eating a little more and sodium improved will discontinue IV fluids and encouraged to increase activity as tolerated. We'll monitor closely and possibly consider psychiatric evaluation. Patient is not suicidal and not petitioned. Home medications reviewed and resumed and will continue. Patient denies chest pain or shortness of breath. 12/30/2022 Patient is seen this morning continued on CIWA protocol and receiving less IV Ativan. Last dose was last night and has been receiving oral Ativan along with Librium taper. Patient continues with depression and increased anxiety and reports to having a panic attack yesterday evening. We'll consult psychiatry as patient is medically stable and planning for probable discharge planning in 24 hours. Patient does follow with psychiatry in the outpatient setting and will continue to follow. No reports of nausea or vomiting and tolerating diet. Patient has been up and to the bathroom with no difficulties and denies any chest pain or shortness of breath. Review of systems: Constitutional: No reports of fatigue, fever, or chills Cardiovascular: No reports of chest pain or palpitations Respiratory: No reports of shortness of breath or cough GI: No reports of nausea, vomiting, or diarrhea : No reports of dysuria or retention Neurovascular: No reports of weakness or numbness All medications have been reviewed Active Medications Chlordiazepoxide HCl (Chlordiazepoxide 25 Mg Cap) 25 mg PO TID [facility] Last Admin: 12/30/22 21:28 Dose: 25 mg Escitalopram Oxalate (Escitalopram 10 Mg Tab) 30 mg PO HS [facility] Last Admin: 12/30/22 21:29 Dose: 30 mg Lamotrigine (Lamotrigine 100 Mg Tab) 150 mg PO BID [facility] Last Admin: 12/30/22 21:28 Dose: 150 mg [place] Carbonate ([place] Carbonate Er 450 Mg Tablet.Er) 450 mg PO BID [facility] Last Admin: 12/30/22 21:28 Dose: 450 mg Lorazepam (Lorazepam 2 Mg/Ml Inj) 1 mg IV Q1HR PRN PRN Reason: CIWA 10 to 15 Last Admin: 12/28/22 22:05 Dose: 1 mg Lorazepam (Lorazepam 2 Mg/Ml Inj) 1 mg IV Q2HR PRN PRN Reason: CIWA 8 or 9 Last Admin: 12/30/22 06:24 Dose: 1 mg Lorazepam (Lorazepam 1 Mg Tab) 1 mg PO Q1HR PRN PRN Reason: Alcohol Withdrawal Last Admin: 12/30/22 19:20 Dose: 1 mg Lorazepam (Lorazepam 1 Mg Tab) 1 mg PO BID [facility] Stop: 12/31/22 12:00 Last Admin: 12/30/22 21:28 Dose: 1 mg Melatonin (Melatonin 5 Mg Tablet) 10 mg PO HS [facility] Last Admin: 12/30/22 21:28 Dose: 10 mg Naloxone HCl (Naloxone 0.4 Mg/Ml 1 Ml Vial) 0.2 mg IV Q2M PRN PRN Reason: Opioid Reversal Ondansetron HCl (Ondansetron 4 Mg/2 Ml Vial) 4 mg IVP Q8HR PRN PRN Reason: Nausea And Vomiting Last Admin: 12/29/22 12:44 Dose: 4 mg Pantoprazole Sodium (Pantoprazole 40 Mg Tablet) 40 mg PO [id number] [facility] Last Admin: 12/30/22 08:15 Dose: 40 mg Temazepam (Temazepam 7.5 Mg Cap) 7.5 mg PO HS PRN PRN Reason: Insomnia Last Admin: 12/27/22 23:55 Dose: 7.5 mg Thiamine HCl (Thiamine 100 Mg Tab) 100 mg PO DAILY [facility] Last Admin: 12/30/22 08:16 Dose: 100 mg Physical exam: Gen: This is a 42-year-old female who is awake, alert and oriented 3, well- developed, well-nourished HEENT: Head is atraumatic, normocephalic. Pupils equal, round. Sclerae is anicteric. NECK: Supple. No JVD. No lymphadenopathy. No thyromegaly. LUNGS: Clear to auscultation. No wheezes or rhonchi. No intercostal retractions. HEART: Regular rate and rhythm. No murmur. ABDOMEN: Soft. Bowel sounds are present. No masses. No tenderness. EXTREMITIES: No pedal edema. No calf tenderness. NEUROLOGICAL: Patient is asleep but easily arousable, alert and oriented x3. Cranial nerves 2 through 12 are grossly intact. Assessment: Acute alcohol intoxication History of alcohol withdrawal symptoms and seizures. Anxiety/depression and panic attacks History of bipolar disorder Heavy alcohol use on daily basis DVT prophylaxis Full code Plan: Patient will be continued CIWA protocol and will continue Librium and continue to encourage oral Ativan and limit the use of IV as patient continues to request it every 2 hours Encouraged being awake more often and increased activity as tolerated Home medications reviewed and resumed and will continue Will consult psychiatry and appreciate input and recommendations. Await repeat labs in the a.m. and probable discharge in 24 hours The impression and plan of care has been dictated as a scribe by Octavia Lenin, Nurse Practitioner as directed. Dr. Doug MD I have performed a history and examination and MDM of this patient, discussed the same with the dictator, and will be documented as a scribe. Based on total visit time, I have performed more than 50% of the visit. Objective - Vital Signs Vital signs: Vital Signs Temp 98.4 F 12/30/22 06:43 Pulse 69 12/30/22 06:43 Resp 18 12/30/22 06:43 BP 133/85 12/30/22 06:43 Pulse Ox 97 12/30/22 06:43 FiO2 Intake & Output 12/29/22 12/30/22 12/30/22 18:59 06:59 18:59 Intake Total 750 Balance 750 Intake: Intake, IV Titration 750 Amount Sodium Chloride 0.9% 1, 750 000 ml @ 75 mls/hr IV . [id number] [facility] Rx#:[id number] Other: Voiding Method Toilet Toilet Toilet # Voids 3 1 - Labs CBC & Chem 7: 12/29/22 05:16 12/29/22 05:16
[2022-12-31] MEDS: LORazepam 1 MG TAB PO PRN ×4 (02:26→11:57)
[2022-12-31] MEDS: ONDANSETRON 4 MG/2 ML VIAL IVP PRN ×2 (02:26→10:38)
[2022-12-31 07:54] VITALS: RESP 16; TEMP 98.5
[2022-12-31] MEDS: chlordiazePOXIDE 25 MG CAP PO SCH (08:56)
[2022-12-31] MEDS: lamoTRIgine 100 MG TAB PO SCH (08:56)
[2022-12-31] MEDS: PANTOPRAZOLE 40 MG TABLET PO SCH (08:56)
[2022-12-31] MEDS: THIAMINE 100 MG TAB PO SCH (08:56)
[2022-12-31] MEDS: LORazepam 1 MG TAB PO SCH (08:59)
[2022-12-31] MEDS ORDERED: NALTREXONE HCL 50 MG TAB PO SCH (09:00)
[2022-12-31] MEDS: LITHIUM CARBONATE ER 450 MG TABLET.ER PO SCH (09:02)
[2022-12-31 09:18] LABS: ALT 24 U/L (8-44); AST 25 U/L (13-35); African American GFR (CKD) 122.1 (60.0-200.0); Albumin 3.9 g/dL (3.8-4.9); Albumin/Globulin Ratio 1.63 (1.60-3.17); Alkaline Phosphatase 59 U/L (41-126); BUN/Creat Ratio 4.43 Ratio (12.00-20.00); Blood Urea Nitrogen 3.1 mg/dL (9.0-27.0); Calcium 9.4 mg/dL (8.7-10.3); Carbon Dioxide 27.4 mmol/L (20.0-27.5); Chloride 105 mmol/L (96-109); Globulin 2.4 g/dL (1.6-3.3); Glucose 98 mg/dL (70-110); Non-African American GFR(CKD) 105.4 (60.0-200.0); Potassium 4.2 mmol/L (3.5-5.5); Sodium 139 mmol/L (135-145); Total Bilirubin <0.15 mg/dL (0.30-1.20); Total Protein 6.3 g/dL (6.2-8.2)
[2022-12-31 13:05] VITALS: BP 123/81; PULSE 80
--- NOTE | 2022-12-31 13:18 | P.PN ---
Progress Note - Text Progress Note Date: 12/31/22 Interval History: Patient was seen eating her lunch and was directable and agreeable to speak with manual writer in her room. Currently, the patient denies any suicidal or homicidal ideation, intention, and/or plan. She reports no auditory or visual hallucinations. She denies any paranoia or other delusions. The patient is tearful during the examination states that she is "tired of living like this." She reports that she is in perpetual state of anxiety. This provider provided the patient with cognitive behavioral therapy, supportive psychotherapy, and motivational interviewing. We discussed at length the need for her to change. The patient was educated on the length of time it would take in order to improve mentally in order to make up the "35+ years of being effed up." She is agreeable to naltrexone. She denies any history of opioid abuse and was counseled on the risks, benefits, and treatment alternatives. Mental Status Exam: General Appearance: Patient appears to be stated age is alert, directable, and cooperative. Behavior: Patient is calmly seated without any agitated behavior. Speech: Patient's speech is fluent and nonpressured. Mood/Affect: Mood is "I'm always in a panic," affect is irritable, somewhat oppositional Suicidality/Homicidality: Patient denies having any suicidal or homicidal ideation intent or plan. Perceptions: Patient denies any visual hallucinations and denies any auditory hallucinations Though content/process: There is no evidence of any delusional thought content and thought process is linear and goal-directed. Memory and concentration: AOX3, grossly intact for the purposes of this session Judgment and insight: Fair Vital Signs Temp 98.5 F 12/31/22 12:47 Pulse 80 12/31/22 12:47 Resp 16 12/31/22 12:47 BP 123/81 12/31/22 12:47 Pulse Ox 97 12/31/22 12:47 FiO2 Intake & Output 12/30/22 12/31/22 12/31/22 18:59 06:59 18:59 Intake Total 425 Balance 425 Intake: Oral 425 Other: Voiding Method Toilet Toilet Toilet # Voids 4 2 Laboratory Results WBC 3.35 X 10*3/uL (4.50-10.00) L 12/29/22 05:16 RBC 3.71 X 10*6/uL (4.10-5.20) L 12/29/22 05:16 Hgb 10.9 g/dL (12.0-15.0) L 12/29/22 05:16 Hct 35.5 % (37.2-46.3) L 12/29/22 05:16 MCV 95.7 fL (80.0-97.0) 12/29/22 05:16 MCH 29.4 pg (27.0-32.0) 12/29/22 05:16 MCHC 30.7 g/dL (32.0-37.0) L 12/29/22 05:16 RDW 13.3 % (11.5-14.5) 12/29/22 05:16 Plt Count 240 X 10*3/uL (140-440) 12/29/22 05:16 MPV 9.7 fL (9.5-12.2) 12/29/22 05:16 Immature Gran % (Auto) 0.3 % 12/29/22 05:16 Absolute Nucleated RBC 0 X 10*3/uL (0.00-0.00) 12/29/22 05:16 Neutrophils % 56.7 % 12/29/22 05:16 Lymphocytes % 27.8 % 12/29/22 05:16 Monocytes % 11.9 % 12/29/22 05:16 Eosinophils % 1.8 % 12/29/22 05:16 Basophils % 1.5 % 12/29/22 05:16 Immature Gran # 0.01 X 10*3/uL (0.00-0.04) 12/29/22 05:16 Neutrophils # 1.90 X 10*3/uL (1.80-7.70) 12/29/22 05:16 Lymphocytes # 0.93 X 10*3/uL (0.90-5.00) 12/29/22 05:16 Monocytes # 0.40 X 10*3/uL (0.20-1.00) 12/29/22 05:16 Eosinophils # 0.06 X 10*3/uL (0.04-0.35) 12/29/22 05:16 Basophils # 0.05 X 10*3/uL (0.00-0.10) 12/29/22 05:16 NRBC/100 WBC Diff 0 /100 WBCS (0.0-0.0) 12/29/22 05:16 Sodium 139 mmol/L (135-145) 12/31/22 03:45 Potassium 4.2 mmol/L (3.5-5.5) 12/31/22 03:45 Chloride 105 mmol/L (96-109) 12/31/22 03:45 Carbon Dioxide 27.4 mmol/L (20.0-27.5) 12/31/22 03:45 Anion Gap 6.60 mmol/L (10.00-18.00) L 12/31/22 03:45 BUN 3.1 mg/dL (9.0-27.0) L 12/31/22 03:45 Creatinine 0.7 mg/dL (0.6-1.5) 12/31/22 03:45 Est GFR (CKD-EPI)AfAm 122.1 (60.0-200.0) 12/31/22 03:45 Est GFR (CKD-EPI)NonAf 105.4 (60.0-200.0) 12/31/22 03:45 BUN/Creatinine Ratio 4.43 Ratio (12.00-20.00) L 12/31/22 03:45 Glucose 98 mg/dL (70-110) 12/31/22 03:45 Calcium 9.4 mg/dL (8.7-10.3) 12/31/22 03:45 Magnesium 2.0 mg/dL (1.5-2.4) 12/29/22 05:16 Total Bilirubin <0.15 mg/dL (0.30-1.20) L 12/31/22 03:45 AST 25 U/L (13-35) 12/31/22 03:45 ALT 24 U/L (8-44) 12/31/22 03:45 Alkaline Phosphatase 59 U/L (41-126) 12/31/22 03:45 Total Protein 6.3 g/dL (6.2-8.2) 12/31/22 03:45 Albumin 3.9 g/dL (3.8-4.9) 12/31/22 03:45 Globulin 2.4 g/dL (1.6-3.3) 12/31/22 03:45 Albumin/Globulin Ratio 1.63 g/dL (1.60-3.17) 12/31/22 03:45 Salicylates <1.0 mg/dL 12/27/22 12:49 Urine Opiates Screen Not Detected (NotDetected) 12/27/22 09:50 Ur Oxycodone Screen Not Detected (NotDetected) 12/27/22 09:50 Urine Methadone Screen Not Detected (NotDetected) 12/27/22 09:50 Ur Propoxyphene Screen Not Detected (NotDetected) 12/27/22 09:50 Acetaminophen <10.0 ug/mL 12/27/22 12:49 Ur Barbiturates Screen Not Detected (NotDetected) 12/27/22 09:50 U Tricyclic Antidepress Not Detected (NotDetected) 12/27/22 09:50 Ur Phencyclidine Scrn Not Detected (NotDetected) 12/27/22 09:50 Ur Amphetamines Screen Not Detected (NotDetected) 12/27/22 09:50 U Methamphetamines Scrn Not Detected (NotDetected) 12/27/22 09:50 U Benzodiazepines Scrn Detected (NotDetected) H 12/27/22 09:50 Murray 0.5 mmol/L 12/27/22 14:45 Urine Cocaine Screen Not Detected (NotDetected) 12/27/22 09:50 U Marijuana (THC) Screen Not Detected (NotDetected) 12/27/22 09:50 Serum Alcohol 356 mg/dL H* 12/27/22 12:49 Assessment Alcohol use disorder, severe Anxiety disorder secondary to alcohol withdrawal Bipolar 2 disorder, per history Hx of anxiety disorder Cluster B traits Plan: -At this time patient DOES NOT meet criteria for inpatient psychiatric admission. -Would recommend the following medication changes/additions: Continue with Librium taper Naltrexone 50 mg daily for alcohol cessation Lexapro 30 mg at bedtime Lamictal 150 mg twice a day, lithium 450 mg twice a day, melatonin 10 mg at bedtime Recommend discontinuing Restoril. Would not recommend long-term use of Restoril in the context of alcohol use given the risk of respiratory depression and . Chronic alcohol use interferes with sleep cycle -Continue CIWA protocol with PRN Ativan for alcohol withdrawal per primary team. Continue to monitor vital signs. -Software Manager spoke with patient about substance abuse and the harmful effects on medical and mental health, patient verbally understood and agreed. -medical office worker to provide patient substance use treatment resources including AA/NA meetings in the community. -medical office worker to provide patient with access line number to call for inpatient substance rehab -Communicated plan to patient's nurse -Psychiatry will sign off. Thank you for this consult.
--- NOTE | 2023-01-01 14:08 | P.DS ---
Providers Date of admission: 12/27/22 15:04 Expected date of discharge: 12/31/22 Attending physician: Chey Camacho Consults: 12/30/22 10:25 Consult Physician Urgent Consulting Provider: Tavo Blanco Consult Reason/Comments: depression, anxiety Do you want consulting provider notified?: Yes Primary care physician: Stated None Hospital Course: Final diagnosis Acute alcohol intoxication History of alcohol withdrawal symptoms and seizures. Anxiety/depression and panic attacks History of bipolar disorder Heavy alcohol use on daily basis DVT prophylaxis Full code Discharge disposition Patient is being discharged in a stable condition with guarded prognosis to home. Patient will follow-up with Dr. Lara in the outpatient setting upon discharge. Patient is to continue with her psychiatry appointment as scheduled. Total time taken is greater than 35 minutes. Hospital course This is a 42-year-old female who was recently admitted with alcohol intoxication along with increased anxiety and depression and having panic attacks and being closely monitored. Patient was maintained on CIWA protocol and seen and evaluated by psychiatry recommending medication adjustments and outpatient follow-up with her psychiatrist along with primary care provider. Discussed alcohol rehab in detail and patient not willing at this time. Strongly encouraged alcohol cessation and attending AA meetings and follow-up with psychiatrist this week. Patient will continue Librium taper and recommend follow-up with her primary care provider this week. Currently no reports of chest pain, shortness of breath, or palpitations. Patient is afebrile. No reports of nausea or vomiting and patient is tolerating diet. Patient will be discharged home today. Guarded prognosis and high risk for readmissions as patient is noncompliant with alcohol cessation. Physical exam: Gen: This is a 42-year-old female who is awake, alert and oriented 3, well- developed, well-nourished HEENT: Head is atraumatic, normocephalic. Pupils equal, round. Sclerae is anicteric. NECK: Supple. No JVD. No lymphadenopathy. No thyromegaly. LUNGS: Clear to auscultation. No wheezes or rhonchi. No intercostal retractions. HEART: Regular rate and rhythm. No murmur. ABDOMEN: Soft. Bowel sounds are present. No masses. No tenderness. EXTREMITIES: No pedal edema. No calf tenderness. NEUROLOGICAL: Patient is awake, alert and oriented x3. Cranial nerves 2 through 12 are grossly intact. Please refer to medication reconciliation sheet for a list of medications. The impression and plan of care has been dictated by Octavia Phelps, Nurse Practitioner as directed. Dr. Daniel MD I have performed a history and examination and MDM of this patient, discussed the same with the dictator, and agree with the dictator's assessment and plan as written ,documented as a scribe. Based on total visit time, I have performed more than 50% of the visit. Patient Condition at Discharge: Stable Plan - Discharge Summary Discharge Rx Participant: No New Discharge Prescriptions: New RX: Escitalopram [Lexapro] 30 mg PO HS #60 tab RX: chlordiazePOXIDE HCl [Librium] 25 mg PO TID #12 cap RX: Melatonin 10 mg PO HS tab RX: Thiamine [Vitamin B-1] 100 mg PO DAILY 30 Days #30 tab Ondansetron Odt [Zofran Odt] 4 mg PO Q8HR PRN #10 tab PRN Reason: Nausea RX: Naltrexone HCl [Revia] 50 mg PO DAILY 15 Days #15 tablet Continue RX: [place] Carbonate ER [Lithobid] 450 mg PO BID RX: lamoTRIgine [LaMICtal] 150 mg PO BID RX: Omeprazole 40 mg PO DAILY Discontinued RX: Escitalopram [Lexapro] 40 mg PO HS Discharge Medication List RX: [place] Carbonate ER [Lithobid] 450 mg PO BID 10/16/20 [History] RX: lamoTRIgine [LaMICtal] 150 mg PO BID 10/16/20 [History] RX: Omeprazole 40 mg PO DAILY 04/20/21 [History] Ondansetron Odt [Zofran Odt] 4 mg PO Q8HR PRN #10 tab 12/31/22 [Rx] RX: Escitalopram [Lexapro] 30 mg PO HS #60 tab 12/31/22 [Rx] RX: Melatonin 10 mg PO HS tab 12/31/22 [Rx] RX: Naltrexone HCl [Revia] 50 mg PO DAILY 15 Days #15 tablet 12/31/22 [Rx] RX: Thiamine [Vitamin B-1] 100 mg PO DAILY 30 Days #30 tab 12/31/22 [Rx] RX: chlordiazePOXIDE HCl [Librium] 25 mg PO TID #12 cap 12/31/22 [Rx] Follow up Appointment(s)/Referral(s): Sherice Lara MD [STAFF PHYSICIAN] - 1 Week (Patient needs to call to make a follow up appoinmtent.) Patient Instructions/Handouts: Chlordiazepoxide (By mouth), Thiamine (By mouth), Naltrexone (By mouth), Ondansetron (By mouth), Escitalopram (By mouth), Generalized Anxiety Disorder (ED), Abuse of Alcohol (DC) Activity/Diet/Wound Care/Special Instructions: Activity Limited until follow-up Follow-up with primary care to establish Follow-up with her psychiatrist Continue taking medications as prescribed Continue taking Librium taper and avoid all alcohol intake Discharge Disposition: HOME SELF-CARE
== END 2022-12-31 14:17 | disposition home or self-care (01) | DRG 897 ==
LOC: EC 11:52 → 5NMEDONC 15:04
PROVIDERS: ADMIT Internal Medicine; ATTEND Internal Medicine
PROC: HZ2ZZZZ Detoxification Services for Substance Abuse Treatment (ICD-10-PCS; principal; 2022-12-27)
DX: F10.229 Alcohol dependence with intoxication, unspecified (principal); F31.81 Bipolar II disorder; F41.0 Panic disorder [episodic paroxysmal anxiety]; F06.4 Anxiety disorder due to known physiological condition; F10.239 Alcohol dependence with withdrawal, unspecified; F60.89 Other specific personality disorders; Y90.8 Blood alcohol level of 240 mg/100 ml or more; Z88.1 Allergy status to other antibiotic agents; Z79.899 Other long term (current) drug therapy; Z91.199 Patient's noncompliance with other medical treatment and regimen due to unspecified reason; Z76.5 Malingerer [conscious simulation]; Z71.41 Alcohol abuse counseling and surveillance of alcoholic
CPT/HCPCS: 36415; 80048; 80053; 80143; 80178; 80179; 80306; 80320; 82075; 83735; 84132; 85025; 96361; 96372; 96374; 96375; 96376; 99291

== ENCOUNTER 2023-01-31 20:55 | Emergency (ER) | payer MEDICARE ==
[2023-01-31] MEDS ORDERED: SODIUM CHLORIDE 0.9% 1,000 ML IV STA ×2 (21:16→23:23)
[2023-01-31] MEDS ORDERED: LORazepam 1 MG TAB PO PRN ×3 (21:17)
[2023-01-31] MEDS ORDERED: THIAMINE 100 MG/ML 2 ML VIAL IM STA (21:17)
[2023-01-31] MEDS ORDERED: LORazepam 0.5 MG TAB PO PRN (21:17)
[2023-01-31] MEDS ORDERED: ONDANSETRON 4 MG/2 ML VIAL IVP STA (21:23)
[2023-01-31] MEDS ORDERED: LORazepam 2 MG/ML INJ IV STA (21:23)
[2023-01-31] MEDS ORDERED: PANTOPRAZOLE 40 MG/10 ML VIAL IVP STA (21:23)
[2023-01-31 21:52] LABS: Glucose,Whole Blood 86 mg/dL (70-110)
[2023-01-31 22:09] LABS: Anisocytosis Slight; Basophils # (A) 0.1 k/uL (0-0.2); Basophils % (A) 2 %; Eosinophils % (A) 1 %; HCT 40.3 % (34.0-46.0); HGB 13.4 gm/dL (11.4-16.0); Lymphocytes # (A) 1.5 k/uL (1.0-4.8); Lymphocytes % (A) 45 %; MCH 30.9 pg (25.0-35.0); MCHC 33.1 g/dL (31.0-37.0); MCV 93.1 fL (80.0-100.0); Mean Platelet Volume 7.9; Monocytes # (A) 0.1 k/uL (0-1.0); Monocytes % (A) 4 %; Neutrophils # (A) 1.6 k/uL (1.3-7.7); Neutrophils % (A) 48 %; RBC 4.33 m/uL (3.80-5.40); RDW 16.8 % (11.5-15.5); WBC 3.3 k/uL (3.8-10.6)
[2023-01-31 22:32] LABS: ALT 295 U/L (4-34); African American GFR (CKD) >90 (>60 ml/min/1.73 sqM); Albumin 3.1 g/dL (3.5-5.0); Alkaline Phosphatase 461 U/L (38-126); Anion Gap 15 mmol/L; Blood Urea Nitrogen 4 mg/dL (7-17); Calcium 8.3 mg/dL (8.4-10.2); Carbon Dioxide 28 mmol/L (22-30); Chloride 99 mmol/L (98-107); Glucose 84 mg/dL (74-99); Lipase 210 U/L (23-300); Magnesium 1.8 mg/dL (1.6-2.3); Non-African American GFR(CKD) >90 (>60 ml/min/1.73 sqM); Potassium 3.4 mmol/L (3.5-5.1); Sodium 142 mmol/L (137-145); Total Protein 7.5 g/dL (6.3-8.2)
[2023-01-31 22:38] LABS: AST 686 U/L (14-36)
--- NOTE | 2023-01-31 22:43 | ED ---
General Adult HPI - General Chief complaint: Psychiatric Symptoms Stated complaint: ETOH,Psych Time Seen by Provider: 01/31/23 21:12 Source: patient, EMS, RN notes reviewed, old records reviewed Mode of arrival: EMS Limitations: no limitations - History of Present Illness Initial comments: Patient is a 42-year-old female who is brought in by EMS for alcohol intoxication and suicidal ideations. Patient was found apparently at a constitution party where she was naked and intoxicated. Apparently was stated that the patient was having suicidal ideations and she is brought here for further evaluation. Patient does endorse drinking alcohol heavily. Denies any other drug use. Does have a history of alcohol withdrawals or seizures. 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 Is requesting Ativan, fluids, Zofran. No acute changes. When I ask her about the suicidal statements, she states that she accidentally said that, and she denies having any suicidal ideations at this time. Denies any homicidal ideations, attempts, plans. Denies any visual or auditory hallucinations. Is concerned she may go into alcohol withdrawals. Presents for further evaluation of this time. - Related Data Home Medications Medication Instructions Recorded Confirmed Pitman Carbonate ER [Lithobid] 450 mg PO BID 10/16/20 01/31/23 lamoTRIgine [LaMICtal] 150 mg PO BID 10/16/20 01/31/23 Omeprazole 40 mg PO DAILY 04/20/21 01/31/23 clonazePAM [Klonopin] 1 mg PO TID PRN 01/31/23 01/31/23 Previous Rx's Medication Instructions Recorded Escitalopram [Lexapro] 30 mg PO HS #60 tab 12/31/22 Melatonin 10 mg PO HS tab 12/31/22 Ondansetron Odt [Zofran Odt] 4 mg PO Q8HR PRN #10 tab 12/31/22 Thiamine [Vitamin B-1] 100 mg PO DAILY 30 Days #30 tab 12/31/22 Allergies Allergy/AdvReac Type Severity Reaction Status Date / Time amoxicillin Allergy Rash/Hives Verified 12/27/22 13:46 Review of Systems ROS Statement: Those systems with pertinent positive or pertinent negative responses have been documented in the HPI. Review of Systems: CONST: Denies fever EYES: Denies blurry vision ENT: Denies nasal congestion C/V: Denies Chest pain RESP: Denies shortness of breath GI: Endorses nausea : Denies dysuria SKIN: Denies rash. MSK: Denies joint pain. NEURO: Denies headache PSYCH: Denies suicidal and homicidal ideations/plans/attempts. Denies visual or auditory hallucinations. ROS Other: All systems not noted in ROS Statement are negative. Past Medical History Past Medical History: No Reported History Additional Past Medical History / Comment(s): withdrawl etoh seizures History of Any Multi-Drug Resistant Organisms: None Reported Past Surgical History: Adenoidectomy Additional Past Surgical History / Comment(s): poor historian Past Anesthesia/Blood Transfusion Reactions: No Reported Reaction Past Psychological History: Anxiety, Bipolar, Depression Smoking Status: Never smoker Past Alcohol Use History: Abuse, Daily, Heavy Past Drug Use History: None Reported - Past Family History Father Family Medical History: Unable to Obtain Mother Family Medical History: Unable to Obtain General Exam - General Exam Comments Initial Comments: General: Appears in no acute distress. Acutely intoxicated. No active signs of withdrawal. Acting appropriately and responding to questions. HEAD: Normal with no signs of head trauma. EYES: PERRLA, EOMI, conjunctiva normal, no discharge. Pupils are 3 mm and equal bilaterally. ENT: Hearing grossly intact, normal oropharynx. RESPIRATORY: Clear breath sounds bilaterally. No wheezes, rales, or rhonchi. C/V: Regular rate and rhythm. S1 and S2 auscultated. Peripheral pulses 2+ intact throughout. ABD: Abd is soft, nontender, nondistended EXT: Normal range of motion, no obvious deformity SKIN: No rashes or lesions observed on exposed skin. NEURO: Alert and oriented x 4. Cranial nerves II-XII intact. No focal sensory or strength deficits. Patient is acutely intoxicated with alcohol. No evidence of alcohol withdrawals at this time. No tongue fasciculations. No tremors. Limitations: no limitations Course Vital Signs 01/31/23 02/01/23 02/01/23 21:16 04:05 04:21 Temperature 97.9 F Pulse Rate 89 85 Respiratory 16 16 Rate Blood Pressure 118/82 114/68 O2 Sat by Pulse 97 96 Oximetry 02/01/23 07:53 Temperature 97.4 F L Pulse Rate 87 Respiratory 18 Rate Blood Pressure 97/64 O2 Sat by Pulse 96 Oximetry Medical Decision Making - Medical Decision Making Was pt. sent in by a medical professional or institution ([facility], [facility] [employer] [employer], urgent care, hospital, or fci...) When possible be specific @ -No Did you speak to anyone other than the patient for history (EMS, parent, family, police, friend...)? What history was obtained from this source @ -No Did you review nursing and triage notes (agree or disagree)? Why? @ -I reviewed and agree with nursing and triage notes Were old charts reviewed (outside hosp., previous admission, EMS record, old EKG, old radiological studies, urgent care reports/EKG's, fci records)? Report findings @ -No old charts were reviewed Differential Diagnosis (chest pain, altered mental status, abdominal pain women, abdominal pain men, vaginal bleeding, weakness, fever, dyspnea, syncope, headache, dizziness, GI bleed, back pain, seizure, CVA, palpatations, mental health, musculoskeletal)? @ -Differential Mental Health Depression, anxiety, bipolar, psychosis, schizophrenia, borderline personality, situational depression, adjustment disorder, behavioral disorder, brain tumor, malingering, substance abuse, encephalopathy, medication reaction, dementia, hypothyroidism, degenerative neurologic disorder, lupus, alcohol intoxication, history of alcohol withdrawals.... This is not meant to be all-inclusive list EKG interpreted by me (3pts min.). @ -As above X-rays interpreted by me (1pt min.). @ -None done CT interpreted by me (1pt min.). @ -CT abdomen and pelvis revealed diffuse colitis. CT brain reveals no obvious acute intracranial process. U/S interpreted by me (1pt. min.). @ -Long delay in obtaining ultrasound gallbladder read. Radiology interpreted as revealing a distended gallbladder as well as a dilated CBD of 1.2 cm. What testing was considered but not performed or refused? (CT, X-rays, U/S, labs)? Why? @ -None. What meds were considered but not given or refused? Why? @ -None Did you discuss the management of the patient with other professionals (professionals i.e. [facility], [employer], lab, RT, psych nurse, medical social consultant, passenger agent, teacher, morals squad police officer, telephonic case manager)? Give summary @ -No Was smoking cessation discussed for >3mins.? @ -No Was critical care preformed (if so, how long)? @ -Yes, 35 minutes Were there social determinants of health that impacted care today? How? (Homelessness, low income, unemployed, alcoholism, drug addiction, transpo rtation, low edu. Level, literacy, decrease access to med. care, senior living, rehab)? @ -No Was there de-escalation of care discussed even if they declined (Discuss DNR or withdrawal of care, Hospice)? DNR status @ -No What co-morbidities impacted this encounter? (DM, HTN, Smoking, COPD, CAD, Cancer, CVA, ARF, Chemo, Hep., AIDS, mental health diagnosis, sleep apnea, morbid obesity)? @ -Alcohol abuse Was patient admitted / discharged? Hospital course, mention meds given and route, prescriptions, significant lab abnormalities, going to OR and other pertinent info. @ -Based on the patient's presentation and physical exam, she presents after stating she was suicidal as well as for alcohol intoxication. Also has nausea and states she has been throwing up. Does have a history of alcohol withdrawals. We will obtain basic labs, she was placed in green scrubs. She'll need evaluation by psychiatry. BAT is elevated and therefore we will obtain blood work. She'll be given a 1 L fluid bolus presents with a treatment as well as 1 mg of IV Ativan, Zofran, Protonix. CIWA protocol was ordered for the patient as well. She was in agreement with this plan. Vital signs are within acceptable limits. No active signs of alcohol withdrawal at the time of the examination. EKG shows no signs of acute ischemia.Patient's labs are remarkable for a leukopenia of 3.3. Thrombocytopenia with a history of 92. Patient is acutely toxic with alcohol at 156. Total bilirubin is elevated to 2.0. She is elevated AST and ALT above her baseline at 686 and to 95. Alk phos is also acutely elevated to 461. CT imaging revealed diffuse colitis. CT brain revealed no obvious acute intracranial process. I updated the patient this time. Gallbladder ultrasound is being performed. She will require additional Ativan for a C1 of 7, we will continue to monitor her for alcohol withdrawals. I did ask her, as initially she did not reveal any diarrhea but she does state that she is having intermittent diarrhea. States it has been ongoing for a while. Endorses occasional nausea. However her primary complaint is abdominal pain. States her right upper quadrant is more tender than the rest of her abdomen. Due to it being the middle of the night and thus reliant on stat read for radiological reads, there was a long delay in obtaining the repeat for the gallbladder ultrasound. I had already admitted the patient has we did have GI services merchandiser seasonal Dr. Lora. Dr. Fernandes did accept the patient. Consult was placed to psychiatry as well for her suicidal ideations and alcohol abuse. When the gallbladder ultrasound returned, did show signs concerning for a dilated CBD of 1.2 cm as well as distended gallbladder. She will require an ERCP or MRCP for further evaluation. Patient was placed on IV ciprofloxacin and Flagyl. Maintenance fluids will be continued. I did realize that Dr. Lora is going to be leaving this afternoon when she is no longer merchandiser seasonal and therefore I did want to contact her to see if she was available to perform this procedure today prior to her no longer being merchandiser seasonal. When she did return my phone call, did inform me there was no way to squeeze the patient into the schedule and she recommends transfer. I do believe this is the best course for the patient. I did update the patient, and she was in agreement with this plan. We updated Dr. Fernandes and he expressed understanding. Admission was canceled. Consults were canceled. We reached out to [facility] for transfer. Spoke with Dr. Elias who accepted the transfer. Transferred in serious condition. Patient in agreement with the plan. There is also a long delay in transfer at the patient, EMS originally presented with the incorrect unit who could not tolerate transferring the patient with antibiotics and fluids despite us notifying them that they would be hanging. Undiagnosed new problem with uncertain prognosis? @ -No Drug Therapy requiring intensive monitoring for toxicity (Heparin, Nitro, Insulin, Cardizem)? @ -No Were any procedures done? @ -No Diagnosis/symptom? @ -Alcohol intoxication Acute, or Chronic, or Acute on Chronic? @ -Acute on chronic Uncomplicated (without systemic symptoms) or Complicated (systemic symptoms)? @ -Complicated Side effects of treatment? @ -No Exacerbation, Progression, or Severe Exacerbation? @ -No Poses a threat to life or bodily function? How? (Chest pain, [place], [place], pneumonia, PE, COPD, DKA, ARF, appy, cholecystitis, CVA, Diverticulitis, Homicidal, Suicidal, threat to staff... and all critical care pts) @ -Yes, has a history of alcohol withdrawals which can be life-threatening. Diagnosis/symptom? @ -Suicidal statements, encounter for mental health evaluation Acute, or Chronic, or Acute on Chronic? @ -Acute Uncomplicated (without systemic symptoms) or Complicated (systemic symptoms)? @ -Uncomplicated Side effects of treatment? @ -none Exacerbation, Progression, or Severe Exacerbation] @ -no. Poses a threat to life or bodily function? @ -Yes, can result in self-harm. Diagnosis/symptom? @ -Colitis Acute, or Chronic, or Acute on Chronic? @ -Acute on chronic Uncomplicated (without systemic symptoms) or Complicated (systemic symptoms)? @ -Complicated Side effects of treatment? @ -none Exacerbation, Progression, or Severe Exacerbation] @ -no Poses a threat to life or bodily function? @ -Potentially Diagnosis/symptom? @ -Choledocholithiasis Acute, or Chronic, or Acute on Chronic? @ -Acute Uncomplicated (without systemic symptoms) or Complicated (systemic symptoms)? @ -Complicated Side effects of treatment? @ -none Exacerbation, Progression, or Severe Exacerbation] @ -no Poses a threat to life or bodily function? @ -yes - Lab Data Result diagrams: 01/31/23 21:48 01/31/23 21:48 Lab Results 01/31/23 01/31/23 01/31/23 Range/Units 21:48 21:48 21:49 WBC 3.3 L (3.8-10.6) k/uL RBC 4.33 (3.80-5.40) m/uL Hgb 13.4 (11.4-16.0) gm/dL Hct 40.3 (34.0-46.0) % MCV 93.1 (80.0-100.0) fL MCH 30.9 (25.0-35.0) pg MCHC 33.1 (31.0-37.0) g/dL RDW 16.8 H (11.5-15.5) % Plt Count 92 L D (150-450) k/uL MPV 7.9 Neutrophils % 48 % Lymphocytes % 45 % Monocytes % 4 % Eosinophils % 1 % Basophils % 2 % Neutrophils # 1.6 (1.3-7.7) k/uL Lymphocytes # 1.5 (1.0-4.8) k/uL Monocytes # 0.1 (0-1.0) k/uL Eosinophils # 0.0 (0-0.7) k/uL Basophils # 0.1 (0-0.2) k/uL Manual Slide Review Performed Anisocytosis Slight Sodium 142 (137-145) mmol/L Potassium 3.4 L (3.5-5.1) mmol/L Chloride 99 (98-107) mmol/L Carbon Dioxide 28 (22-30) mmol/L Anion Gap 15 mmol/L BUN 4 L (7-17) mg/dL Creatinine 0.55 (0.52-1.04) mg/dL Est GFR (CKD-EPI)AfAm >90 (>60 ml/min/1.73 sqM) Est GFR (CKD-EPI)NonAf >90 (>60 ml/min/1.73 sqM) Glucose 84 (74-99) mg/dL POC Glucose (mg/dL) 86 (70-110) mg/dL POC Glu Auto Claim Representative ID Chao Herbert Calcium 8.3 L (8.4-10.2) mg/dL Magnesium 1.8 (1.6-2.3) mg/dL Total Bilirubin 2.0 H (0.2-1.3) mg/dL AST 686 H (14-36) U/L ALT 295 H (4-34) U/L Alkaline Phosphatase 461 H (38-126) U/L Total Protein 7.5 (6.3-8.2) g/dL Albumin 3.1 L (3.5-5.0) g/dL Lipase 210 (23-300) U/L Serum Alcohol 456 H* mg/dL - EKG Data -: EKG Interpreted by Me EKG Comments: 12-lead Electrocardiogram Interpretation Note EKG was reviewed and interpreted by myself. 12-lead ECG performed at 2148 is interpreted by me as revealing normal sinus rhythm at a rate of 88 beats per minute. [place] is normal. IN interval is 150 ms, QRS duration is 104 ms, QTc is 450 ms.. There were no ST or T wave abnormalities to suggest myocardial ischemia or injury. R wave progression across the precordium was satisfactory. By my interpretation this EKG is non-diagnostic for acute ischemia. Critical Care Time Critical Care Time: Yes Total Critical Care Time: 35 Critical Care Time: Upon my evaluation, this patient had a high probability of imminent or life- threatening deterioration due to alcohol intoxication, alcohol withdrawal, choledocholithiasis, colitis, suicidal ideation, which required my direct attention, intervention, and personal management. I have personally provided 35 minutes of critical care time exclusive of time spent on separately billable procedures. Time includes review of laboratory data, radiology results, discussion with consultants, and monitoring for potential decompensation. Interventions were performed as documented in my note. Disposition Clinical Impression: Alcohol withdrawal, Alcohol intoxication, Choledocholithiasis, Colitis, Suicidal ideation Disposition: OTHER INSTITUTION NOT DEFINED Condition: Serious Time of Disposition: 05:15 - Out of Hospital Transfer - Req. Specs Out of Hospital Transfer - Requested Specifics: Other Emergency Center (Transfer to [facility] for GI services, requires ERCP.)
[2023-01-31 22:51] LABS: Alcohol 456 mg/dL
[2023-01-31 23:21] LABS: Platelet Count 92 k/uL (150-450)
--- NOTE | 2023-02-01 00:13 | CT ---
EXAMINATION TYPE: CT brain w con DATE OF EXAM: 01/31/2023 COMPARISON: CT brain December 08, 2020 HISTORY: ETOH with altered mental status CT DLP: 830.5 mGycm. Automated Exposure Control for Dose Reduction was Utilized. TECHNIQUE: CT scan of the head is performed with IV Contrast, patient injected with 100 mL of Isovu e 300. FINDINGS: The ventricles and sulci are stable with mild generalized atrophy redemonstrated. Postcon trast images show no suspicious enhancing intraparenchymal mass. Malhotra-white matter differentiation is maintained. The globes are intact and the visualized sinuses are clear. IMPRESSION: Mild generalized atrophy. No abnormal enhancement.
--- NOTE | 2023-02-01 00:16 | CT ---
EXAMINATION TYPE: CT abdomen pelvis w con DATE OF EXAM: 01/31/2023 HISTORY: ABD/ANAL PAIN R/U APPY CT DLP: 690.5mGycm Automated Exposure Control for Dose Reduction was Utilized. CONTRAST: CT scan of the abdomen and pelvis is performed without oral and with IV Contrast, patient injected wi th 100 mL of Isovue 300. COMPARISON: CT abdomen and pelvis October 16, 2020 FINDINGS: LUNG BASES: No significant abnormality is appreciated. LIVER/GB: Visualized liver is markedly heterogeneously hypodense. The gallbladder is distended margin PANCREAS: No significant abnormality is seen. SPLEEN: No significant abnormality is seen. ADRENALS: No significant abnormality is seen. KIDNEYS: Subcentimeter round low-density lesion left kidney series 301 image 26 is too small to furth er characterize but is presumed benign. BOWEL: Suboptimal evaluation without enteric contrast. No abnormal small or large bowel dilatation is seen. Moderate to severe wall thickening in the right colon through the hepatic flexure extends thro ugh the transverse colon into the sigmoid colon of the pelvis. No free air. No well-formed fluid eladio ection or abscess seen UTERUS/ADNEXA: Anteverted uterus projects to left of midline with central metallic IUD.. LYMPH NODES: No greater than 1cm abdominal or pelvic lymph nodes are appreciated. OSSEOUS STRUCTURES: No significant abnormality is seen. OTHER: No significant additional abnormality is seen. IMPRESSION: A diffuse pancolitis from the cecum to the rectum. Findings are suggestive of pseudomembr anous colitis. Correlate clinically.
[2023-02-01] MEDS ORDERED: NALOXONE 0.4 MG/ML 1 ML VIAL IV PRN (02:36)
[2023-02-01] MEDS ORDERED: ONDANSETRON 4 MG/2 ML VIAL IVP STA (04:08)
[2023-02-01] MEDS: LORazepam 1 MG TAB PO PRN ×2 (04:13→05:40)
--- NOTE | 2023-02-01 04:41 | US ---
EXAM: US Abdomen Limited, Right Upper Quadrant CLINICAL HISTORY: n/v abd pain TECHNIQUE: Real-time ultrasound of the right upper quadrant with image documentation. COMPARISON: CT of the abdomen/pelvis dated 01/31/2023. FINDINGS: Liver: Hepatomegaly with steatosis again noted. Gallbladder: Unremarkable. No gallstones. Common bile duct: Dilated CBD, measuring 1.2 cm in diameter. No stones. Pancreas: Unremarkable as visualized. Right kidney: Unremarkable. No stones. No solid mass. No hydronephrosis. IMPRESSION: 1. Hepatomegaly with steatosis again noted. 2. Dilated CBD, measuring 1.2 cm in diameter. MRCP recommended for further evaluation.
[2023-02-01] MEDS ORDERED: metroNIDAZOLE-NS PMX 500 MG in SALINE 1 100ML.BAG IVPB SCH (05:00)
[2023-02-01] MEDS ORDERED: LEVOFLOXACIN 500MG-D5W PMX 500 MG in DEXTROSE/WATER 1 100ML.BAG IVPB SCH (05:00)
[2023-02-01 07:58] VITALS: BP 97/64; PULSE 87; RESP 18; TEMP 97.4
[2023-02-01] MEDS ORDERED: THIAMINE 100 MG TAB PO SCH (09:00)
== END 2023-02-01 08:40 | disposition short-term general hospital (02) ==
LOC: EC 20:55 → 6NMEDSUR 02-01 02:37 → UNDOADMIN 02-01 02:37 → UNDODISIN 02-01 07:03 → EC 02-01 08:40
PROC: HZ2ZZZZ Detoxification Services for Substance Abuse Treatment (ICD-10-PCS; principal; 2023-02-01)
DX: K80.40 Calculus of bile duct with cholecystitis, unspecified, without obstruction (principal); F10.239 Alcohol dependence with withdrawal, unspecified; F10.229 Alcohol dependence with intoxication, unspecified; R45.851 Suicidal ideations; F41.9 Anxiety disorder, unspecified; F31.9 Bipolar disorder, unspecified; Y90.8 Blood alcohol level of 240 mg/100 ml or more; Z79.899 Other long term (current) drug therapy; Z88.0 Allergy status to penicillin
CPT/HCPCS: 96376 ×2; 82075; 96368 ×2; 96361 ×8; 96365 ×2; 96366 ×2; 96372 ×2; 96375 ×4; 99291 ×2; 36415; 93005; 80053; 83690; 83735; 85025; 76705; 70460; 74177; G0480; J2060; J3411; J2405 ×2; J1956; C9113; Q9967; 80320

== ENCOUNTER 2023-02-19 11:54 | Observation (INO) | payer MEDICARE ==
[2023-02-19] MEDS ORDERED: SODIUM CHLORIDE 0.9% 1,000 ML IV STA ×2 (11:59→13:55)
[2023-02-19] MEDS ORDERED: ONDANSETRON 4 MG/2 ML VIAL IVP STA (12:12)
--- NOTE | 2023-02-19 12:13 | ED ---
Alcohol HPI - General Chief Complaint: Alcohol Stated Complaint: ETOH Time Seen by Provider: 02/19/23 12:00 Source: patient, RN notes reviewed Mode of arrival: EMS Limitations: no limitations, altered mental status (intoxicated) - History of Present Illness Initial Comments: Patient is a 42-year-old male presenting to the emergency room via EMS for nausea and vomiting secondary to alcohol intoxication. According to EMS she was having intercourse with her boyfriend and began vomiting consequently he called 911. Patient admits to drinking excessive but cannot state exactly mouth. She reports drinking alcohol she is unsure of the time of her last strength however she did drink this morning. She is complaining of upper abdominal pain along with her nausea and vomiting. She denies any hallucinations and is obviously intoxicated but not lethargic. She denies any other complaints at this time. In addition to her EtOH abuse she has a past medical history significant for withdrawal seizures, anxiety and bipolar depression. - Related Data Home Medications Medication Instructions Recorded Confirmed Startex Carbonate ER [Lithobid] 450 mg PO BID 10/16/20 02/19/23 lamoTRIgine [LaMICtal] 150 mg PO BID 10/16/20 02/19/23 Omeprazole 40 mg PO DAILY 04/20/21 02/19/23 Previous Rx's Medication Instructions Recorded Escitalopram [Lexapro] 30 mg PO HS #60 tab 12/31/22 Melatonin 10 mg PO HS tab 12/31/22 Ondansetron Odt [Zofran Odt] 4 mg PO Q8HR PRN #10 tab 12/31/22 Thiamine [Vitamin B-1] 100 mg PO DAILY 30 Days #30 tab 12/31/22 Allergies Allergy/AdvReac Type Severity Reaction Status Date / Time amoxicillin Allergy Rash/Hives Verified 02/19/23 14:33 Review of Systems ROS Statement: Those systems with pertinent positive or pertinent negative responses have been documented in the HPI. ROS Other: All systems not noted in ROS Statement are negative. Past Medical History Past Medical History: No Reported History Additional Past Medical History / Comment(s): withdrawl etoh seizures History of Any Multi-Drug Resistant Organisms: None Reported Past Surgical History: Adenoidectomy Additional Past Surgical History / Comment(s): poor historian Past Anesthesia/Blood Transfusion Reactions: No Reported Reaction Past Psychological History: Anxiety, Bipolar, Depression Smoking Status: Never smoker Past Alcohol Use History: Abuse, Daily, Heavy Past Drug Use History: None Reported - Past Family History Father Family Medical History: Unable to Obtain Mother Family Medical History: Unable to Obtain General Exam Limitations: altered mental status General appearance: alert, in no apparent distress, appears intoxicated Head exam: Present: atraumatic, normocephalic, normal inspection Eye exam: Present: normal appearance, PERRL, EOMI. Absent: scleral icterus, conjunctival injection, periorbital swelling, periorbital tenderness ENT exam: Present: normal exam, mucous membranes moist Neck exam: Present: normal inspection, full ROM Respiratory exam: Present: normal lung sounds bilaterally, wheezes (Fine expiratory). Absent: respiratory distress, rales, rhonchi, stridor Cardiovascular Exam: Present: regular rate, normal rhythm, normal heart sounds. Absent: systolic murmur, diastolic murmur, rubs, gallop, clicks GI/Abdominal exam: Present: soft, tenderness (bilateral upper). Absent: distended, guarding, rebound Rectal exam: Present: deferred Extremities exam: Present: normal inspection, full ROM. Absent: pedal edema, joint swelling Back exam: Present: normal inspection Neurological exam: Present: alert, CN II-XII intact, other (intoxicated) Psychiatric exam: Present: flat affect Skin exam: Present: warm, dry, intact, normal color. Absent: rash Course Vital Signs 02/19/23 11:59 Temperature 97.8 F Pulse Rate 96 Respiratory 20 Rate Blood Pressure 145/91 O2 Sat by Pulse 93 L Oximetry Medical Decision Making - Medical Decision Making Was pt. sent in by a medical professional or institution ([facility], [employer], urgent care, hospital, or fpc...) When possible be specific @ -No Did you speak to anyone other than the patient for history (EMS, parent, family, police, friend...)? What history was obtained from this source @ -Yes, spoke with nursing who discussed presentation with EMS. Did you review nursing and triage notes (agree or disagree)? Why? @ -I reviewed and agree with nursing and triage notes Were old charts reviewed (outside hosp., previous admission, EMS record, old EKG, old radiological studies, urgent care reports/EKG's, fpc records)? Report findings @ -No old charts were reviewed Differential Diagnosis (chest pain, altered mental status, abdominal pain women, abdominal pain men, vaginal bleeding, weakness, fever, dyspnea, syncope, headache, dizziness, GI bleed, back pain, seizure, CVA, palpatations, mental health, musculoskeletal)? @ -Differential Mental Health Depression, anxiety, bipolar, psychosis, schizophrenia, borderline personality, situational depression, adjustment disorder, behavioral disorder, brain tumor, malingering, substance abuse, encephalopathy, medication reaction, dementia, hypothyroidism, degenerative neurologic disorder, lupus.... This is not meant to be all-inclusive list EKG interpreted by me (3pts min.). @ -None done X-rays interpreted by me (1pt min.). @ -None done CT interpreted by me (1pt min.). @ -None done U/S interpreted by me (1pt. min.). @ -None done What testing was considered but not performed or refused? (CT, X-rays, U/S, lab s)? Why? @ -None What meds were considered but not given or refused? Why? @ -benzodiazepines considered for alcohol withdrawals however patient is acutely intoxicated and deferred. Did you discuss the management of the patient with other professionals (professionals i.e. DrPatrick, PA, TV NEWS DIRECTOR, lab, RT, psych nurse, social worker aide, decorator lighting fixtures, teacher, branch lending officer, case packer and sealer)? Give summary @ -Yes, spoke with Dr. Ethan kumar for [facility] regarding presentation of patient currently laboratory studies and recommendation of admission for acute alcohol intoxication. He is accepting of admission and d enies any further orders at this time. Was smoking cessation discussed for >3mins.? @ -No Was critical care preformed (if so, how long)? @ -No Were there social determinants of health that impacted care today? How? (Homelessness, low income, unemployed, alcoholism, drug addiction, transportation, low edu. Level, literacy, decrease access to med. care, custodial, rehab)? @ -Alcoholism Was there de-escalation of care discussed even if they declined (Discuss DNR or withdrawal of care, Hospice)? DNR status @ -No What co-morbidities impacted this encounter? (DM, HTN, Smoking, COPD, CAD, Cancer, CVA, ARF, Chemo, Hep., AIDS, mental health diagnosis, sleep apnea, morbid obesity)? @ -Alcoholism with a history of seizures from withdrawals Was patient admitted / discharged? Hospital course, mention meds given and route, prescriptions, significant lab abnormalities, going to OR and other pertinent info. @ -42-year-old female presents to the emergency room via EMS for severe nausea and vomiting associated with acute alcohol intoxication. Breath alcohol level 286 upon arrival. No indication for diagnostic imaging will obtain laboratory studies of serum alcohol level, CMP, magnesium, phosphorus, coags, CBC along with urine drug screen. Will give 1 L fluid bolus and Zofran now. CBC demonstrates thrombocytopenia and leukopenia both present on previous laboratory studies. Coags normal. CMP demonstrates low potassium 3.3 sodium normal BUN low for creatinine low 0.49 calcium low 8.3 with normal albumin. Magnesium low 1.5 Amylase and lipase elevated, amylase 136, lipase 478. Liver enzymes and alkaline phosphatase elevated but near baseline. AST 504, a LT 153, alkaline phosphate 151. Serum alcohol level 470. Due to nausea and vomiting will replete electrolytes IV. There is a lack of availability of banana bag will order thiamine separately along with continuous IV fluids and electrolyte replacement. Will start with 20 mEq of KCl and 2 g of magnesium sulfate. Spoke with Dr. Caraballo was [facility] as indicated above regarding recommendation for admission for acute alcohol intoxication. He is accepting of admission and denies any further orders at this time. Will admit patient in stable condition to medical surgical unit with telemetry under [facility] for further evaluation and treatment of acute alcohol intoxication and electrolyte abnormalities. Undiagnosed new problem with uncertain prognosis? @ -No Drug Therapy requiring intensive monitoring for toxicity (Heparin, Nitro, Ins ulin, Cardizem)? @ -No Were any procedures done? @ -No Diagnosis/symptom? @ -Acute alcohol intoxication Acute, or Chronic, or Acute on Chronic? @ -Acute on chronic Uncomplicated (without systemic symptoms) or Complicated (systemic symptoms)? @ -Complicated Side effects of treatment? @ -No Exacerbation, Progression, or Severe Exacerbation? @ -No Poses a threat to life or bodily function? How? (Chest pain, [place], [place], pneumonia, PE, COPD, DKA, ARF, appy, cholecystitis, CVA, Diverticulitis, Homicidal, Suicidal, threat to staff... and all critical care pts) @ -Yes, risks for worsening hepatic failure, seizures, respiratory depression and respiratory arrest. Diagnosis/symptom? @ -Hypokalemia Acute, or Chronic, or Acute on Chronic? @ -Acute Uncomplicated (without systemic symptoms) or Complicated (systemic symptoms)? @ -Uncomplicated Side effects of treatment? @ -none Exacerbation, Progression, or Severe Exacerbation] @ -no Poses a threat to life or bodily function? @ -Yes, at risk for cardiovascular arrhythmias Diagnosis/symptom? @ -Hypo-magnesium Acute, or Chronic, or Acute on Chronic? @ -Acute Uncomplicated (without systemic symptoms) or Complicated (systemic symptoms)? @ -Uncomplicated Side effects of treatment? @ -none Exacerbation, Progression, or Severe Exacerbation] @ -no Poses a threat to life or bodily function? @ -Yes at risk for seizures and cardiac arrhythmias. Case discussed with Dr. Hylton. - Lab Data Result diagrams: 02/19/23 12:20 02/19/23 12:20 Lab Results 02/19/23 02/19/23 02/19/23 Range/Units 12:20 12:20 12:20 WBC 3.5 L (3.8-10.6) k/uL RBC 4.13 (3.80-5.40) m/uL Hgb 12.8 (11.4-16.0) gm/dL Hct 39.7 (34.0-46.0) % MCV 96.2 (80.0-100.0) fL MCH 31.0 (25.0-35.0) pg MCHC 32.2 (31.0-37.0) g/dL RDW 17.2 H (11.5-15.5) % Plt Count 148 L D (150-450) k/uL MPV 7.5 Neutrophils % 64 % Lymphocytes % 27 % Monocytes % 2 % Eosinophils % 3 % Basophils % 2 % Neutrophils # 2.2 (1.3-7.7) k/uL Lymphocytes # 1.0 (1.0-4.8) k/uL Monocytes # 0.1 (0-1.0) k/uL Eosinophils # 0.1 (0-0.7) k/uL Basophils # 0.1 (0-0.2) k/uL Anisocytosis Slight PT 11.7 (9.0-12.0) sec INR 1.1 (<1.2) Sodium 143 (137-145) mmol/L Potassium 3.3 L (3.5-5.1) mmol/L Chloride 102 (98-107) mmol/L Carbon Dioxide 26 (22-30) mmol/L Anion Gap 15 mmol/L BUN 4 L (7-17) mg/dL Creatinine 0.49 L (0.52-1.04) mg/dL Est GFR (CKD-EPI)AfAm >90 (>60 ml/min/1.73 sqM) Est GFR (CKD-EPI)NonAf >90 (>60 ml/min/1.73 sqM) Glucose 98 (74-99) mg/dL Calcium 8.3 L (8.4-10.2) mg/dL Phosphorus 3.4 (2.5-4.5) mg/dL Magnesium 1.5 L (1.6-2.3) mg/dL Total Bilirubin 0.7 (0.2-1.3) mg/dL AST 504 H (14-36) U/L ALT 153 H (4-34) U/L Alkaline Phosphatase 151 H (38-126) U/L Total Protein 7.3 (6.3-8.2) g/dL Albumin 4.4 (3.5-5.0) g/dL Amylase 136 H (30-110) U/L Lipase 478 H (23-300) U/L Serum Alcohol 470 H* mg/dL Disposition Clinical Impression: Acute alcohol intoxication, Hypokalemia, Hypomagnesemia Disposition: ADMITTED IP TO THIS [facility] Time of Disposition: 13:56
[2023-02-19 12:42] LABS: Anisocytosis Slight; Basophils # (A) 0.1 k/uL (0-0.2); Basophils % (A) 2 %; Eosinophils # (A) 0.1 k/uL (0-0.7); Eosinophils % (A) 3 %; HCT 39.7 % (34.0-46.0); HGB 12.8 gm/dL (11.4-16.0); Lymphocytes % (A) 27 %; MCHC 32.2 g/dL (31.0-37.0); MCV 96.2 fL (80.0-100.0); Mean Platelet Volume 7.5; Monocytes # (A) 0.1 k/uL (0-1.0); Monocytes % (A) 2 %; Neutrophils # (A) 2.2 k/uL (1.3-7.7); Neutrophils % (A) 64 %; RBC 4.13 m/uL (3.80-5.40); RDW 17.2 % (11.5-15.5); WBC 3.5 k/uL (3.8-10.6)
[2023-02-19 12:53] LABS: INR 1.1 (<1.2); Prothrombin Time 11.7 sec (9.0-12.0)
[2023-02-19 12:56] LABS: ALT 153 U/L (4-34); AST 504 U/L (14-36); African American GFR (CKD) >90 (>60 ml/min/1.73 sqM); Albumin 4.4 g/dL (3.5-5.0); Alkaline Phosphatase 151 U/L (38-126); Amylase 136 U/L (30-110); Anion Gap 15 mmol/L; Blood Urea Nitrogen 4 mg/dL (7-17); Calcium 8.3 mg/dL (8.4-10.2); Carbon Dioxide 26 mmol/L (22-30); Chloride 102 mmol/L (98-107); Glucose 98 mg/dL (74-99); Lipase 478 U/L (23-300); Magnesium 1.5 mg/dL (1.6-2.3); Non-African American GFR(CKD) >90 (>60 ml/min/1.73 sqM); Phosphorus 3.4 mg/dL (2.5-4.5); Potassium 3.3 mmol/L (3.5-5.1); Sodium 143 mmol/L (137-145); Total Bilirubin 0.7 mg/dL (0.2-1.3); Total Protein 7.3 g/dL (6.3-8.2)
[2023-02-19 13:07] LABS: Alcohol 470 mg/dL
[2023-02-19] MEDS ORDERED: POTASSIUM CHLORIDE 20 MEQ in WATER FOR INJECTION 1 100ML.BAG IVPB STA (13:13)
[2023-02-19 13:16] LABS: Platelet Count 148 k/uL (150-450)
[2023-02-19] MEDS ORDERED: NALOXONE 0.4 MG/ML 1 ML VIAL IV PRN (13:52)
[2023-02-19] MEDS ORDERED: THIAMINE 100 MG/ML 2 ML VIAL IM STA (13:54)
[2023-02-19] MEDS ORDERED: LORazepam 1 MG TAB PO PRN (13:54)
[2023-02-19] MEDS: MAGNESIUM SULFATE-D5W PMX 1 GM in DEXTROSE/WATER 1 100ML.BAG IVPB SCH ×2 (15:00→15:31)
[2023-02-19] MEDS: LORazepam 2 MG/ML INJ IV PRN ×2 (15:32→19:55)
--- NOTE | 2023-02-19 17:28 | P.HPIM ---
History of Present Illness H&P Date: 02/19/23 Patient is a 42-year-old female with PMH of alcohol abuse, history of alcohol induced seizures, bipolar disorder presents to the ED for nausea and vomiting. Patient reports drinking daily for many years. Patient states that she drinks 10 beers and shots of vodka on a daily basis. She reports a history of alcohol induced seizures. She reports epigastric discomfort and multiple episodes of NBNB vomiting which prompted her to come to the ED. She denies any headache, lower extremity edema, fever or chills, cough, chest pain, shortness of breath, palpitations, changes in urination or bowel habits. No changes in appetite or weight. She denies any dizziness, numbness/weakness/tingling of the extremities. In the ED patient was noted to be tachycardic with heart rate of 96. Vital signs were otherwise stable. CBC showed WBC count of 3.5 and platelet count 148. CMP showed potassium of 3.3, BUN of 4, creatinine of 0.49, calcium of 8.3, AST of 504, ALT 153, alkaline phosphatase 151. Magnesium is 1.5. Amylase was 136, lipase 478. Serum alcohol 470. Patient is admitted for alcohol intoxication and epigastric pain. Pertinent positives and negatives as discussed in HPI, a complete review of systems was performed and all other systems are negative. General: non toxic, no distress, appears at stated age Derm: warm, dry Head: atraumatic, normocephalic, symmetric Eyes: EOMI, no lid lag, anicteric sclera Cardiovascular: Tachycardic, no murmur Lungs: CTA bilateral, no rhonchi, no rales , no accessory muscle use Abdominal: soft, nontender to palpation, no guarding, no appreciable o rganomegaly Ext: no gross muscle atrophy, no edema, no contractures Neuro: no focal neuro deficits Psych: Alert, oriented, appropriate affect Alcohol intoxication with impending withdrawal Epigastric pain with nausea and vomiting likely related to gastritis Hypokalemia Hypomagnesemia Leukopenia Thrombocytopenia Transaminitis Chronic conditions: history of alcohol induced seizures, bipolar disorder Based on my assessment of this patient, this patient meets a high complexity level of care. Patient has an acute diagnosis of alcohol intoxication with impending withdrawal that poses a threat to life or bodily function. She is also complaining of epistric pain with N/V. Patient will be placed on CIWA protocol and given Ativan IV as needed. Potassium chloride 20 mEq IV ordered along with magnesium sulfate 2 g IV. Zofran 4 mg IV every 8 hours as needed for nausea and vomiting. Start normal sinus 75 mL per hour. Protonix 40 mg IV daily for gastritis. Leukopenia, thrombocytopenia and transaminitis likely related to chronic alcohol abuse. Patient names her mother decision-maker if she can't make decisions for herself. Patient would like to be full code. SCDs for DVT prophylaxis. I have reviewed the following lean consultant notes: None. I have reviewed the results of the following tests: CBC showed WBC count of 3.5 and platelet count 148. CMP showed potassium of 3.3, BUN of 4, creatinine of 0.49, calcium of 8.3, AST of 504, ALT 153, alkaline phosphatase 151. Magnesium is 1.5. Amylase was 136, lipase 478. Serum alcohol 470. I have ordered the following tests: Liver US. CMP ordered for tomorrow morning. I have discussed the care of this patient with the following independent historian: None. I have independently interpreted the following test below: None. I have discussed the management of this patient with the following physician: The case was discussed with the ED physician and decision made to admit the patient for alcohol intoxication and treatment of gastritis. This patient has a high risk of morbidity due to the following reasons: Patient is currently on Ativan IV that requires intensive monitoring for toxicity. Patient requires parenteral controlled substances. Past Medical History Past Medical History: No Reported History Additional Past Medical History / Comment(s): withdrawl etoh seizures History of Any Multi-Drug Resistant Organisms: None Reported Past Surgical History: Adenoidectomy Additional Past Surgical History / Comment(s): poor historian Past Anesthesia/Blood Transfusion Reactions: No Reported Reaction Past Psychological History: Anxiety, Bipolar, Depression Smoking Status: Never smoker Past Alcohol Use History: Abuse, Daily, Heavy Past Drug Use History: None Reported - Past Family History Father Family Medical History: Unable to Obtain Mother Family Medical History: Unable to Obtain Medications and Allergies Home Medications Medication Instructions Recorded Confirmed Type [place] Carbonate ER [Lithobid] 450 mg PO BID 10/16/20 02/19/23 History lamoTRIgine [LaMICtal] 150 mg PO BID 10/16/20 02/19/23 History Omeprazole 40 mg PO DAILY 04/20/21 02/19/23 History Escitalopram [Lexapro] 30 mg PO HS #60 tab 12/31/22 02/19/23 Rx Melatonin 10 mg PO HS tab 12/31/22 02/19/23 Rx Ondansetron Odt [Zofran Odt] 4 mg PO Q8HR PRN #10 tab 12/31/22 02/19/23 Rx Thiamine [Vitamin B-1] 100 mg PO DAILY 30 Days #30 tab 12/31/22 02/19/23 Rx Allergies Allergy/AdvReac Type Severity Reaction Status Date / Time amoxicillin Allergy Rash/Hives Verified 02/19/23 14:33 Physical Exam Vitals: Vital Signs Temp Pulse Resp BP Pulse Ox 02/19/23 16:00 97.9 F 90 16 122/78 94 L 02/19/23 11:59 97.8 F 96 20 145/91 93 L Intake and Output 02/19/23 02/19/23 02/19/23 06:59 14:59 22:59 Other: Weight 58.967 kg Results CBC & Chem 7: 02/19/23 12:20 02/19/23 12:20 Labs: Abnormal Lab Results - Last 24 Hours (Table) 02/19/23 02/19/23 Range/Units 12:20 12:20 WBC 3.5 L (3.8-10.6) k/uL RDW 17.2 H (11.5-15.5) % Plt Count 148 L D (150-450) k/uL Potassium 3.3 L (3.5-5.1) mmol/L BUN 4 L (7-17) mg/dL Creatinine 0.49 L (0.52-1.04) mg/dL Calcium 8.3 L (8.4-10.2) mg/dL Magnesium 1.5 L (1.6-2.3) mg/dL AST 504 H (14-36) U/L ALT 153 H (4-34) U/L Alkaline Phosphatase 151 H (38-126) U/L Amylase 136 H (30-110) U/L Lipase 478 H (23-300) U/L Serum Alcohol 470 H* mg/dL
[2023-02-19] MEDS ORDERED: MAGNESIUM SULFATE-D5W PMX 1 GM in DEXTROSE/WATER 1 100ML.BAG IVPB SCH (18:00)
[2023-02-19] MEDS ORDERED: PANTOPRAZOLE 40 MG/10 ML VIAL IVP SCH (18:00)
[2023-02-19 19:23] LABS: Cocaine Screen,Urine Not Detected (NotDetected); Phencyclidine Screen,Urine Not Detected (NotDetected); Urn Cannabinoid Scrn Not Detected (NotDetected)
[2023-02-19 19:24] LABS: Amphetamine Screen,Urine Not Detected (NotDetected); Barbiturate Screen,Urine Not Detected (NotDetected); Benzodiazepines Screen,Urine Detected (NotDetected); Methadone Screen, Urine Not Detected (NotDetected); Opiate Screen,Urine Not Detected (NotDetected); Oxycodone Screen, Urine Not Detected (NotDetected); Tricyclic Antidepressant,Urine Not Detected (NotDetected)
[2023-02-19] MEDS: ESCITALOPRAM 10 MG TAB PO SCH (21:25)
[2023-02-19] MEDS: lamoTRIgine 100 MG TAB PO SCH (21:26)
[2023-02-19] MEDS: LITHIUM CARBONATE ER 450 MG TABLET.ER PO SCH (21:26)
[2023-02-20] MEDS: ONDANSETRON 4 MG/2 ML VIAL IVP PRN ×3 (00:44→21:27)
[2023-02-20] MEDS: LORazepam 2 MG/ML INJ IV PRN ×4 (00:44→15:21)
[2023-02-20 05:58] LABS: Anisocytosis Slight; HGB 10.5 gm/dL (11.4-16.0); MCH 31.2 pg (25.0-35.0); MCV 100.6 fL (80.0-100.0); Macrocytosis Slight; Mean Platelet Volume 8.4; RBC 3.37 m/uL (3.80-5.40); RDW 16.9 % (11.5-15.5); WBC 2.9 k/uL (3.8-10.6)
[2023-02-20 06:23] LABS: ALT 135 U/L (4-34); AST 399 U/L (14-36); African American GFR (CKD) >90 (>60 ml/min/1.73 sqM); Albumin 3.3 g/dL (3.5-5.0); Albumin/Globulin Ratio 1.3; Alkaline Phosphatase 125 U/L (38-126); Anion Gap 9 mmol/L; Blood Urea Nitrogen 3 mg/dL (7-17); Calcium 7.6 mg/dL (8.4-10.2); Carbon Dioxide 25 mmol/L (22-30); Chloride 100 mmol/L (98-107); Globulin 2.6 g/dL; Glucose 60 mg/dL (74-99); Non-African American GFR(CKD) >90 (>60 ml/min/1.73 sqM); Potassium 3.2 mmol/L (3.5-5.1); Sodium 134 mmol/L (137-145); Total Bilirubin 0.9 mg/dL (0.2-1.3); Total Protein 5.9 g/dL (6.3-8.2)
[2023-02-20 07:15] LABS: Platelet Count 87 k/uL (150-450)
--- NOTE | 2023-02-20 08:25 | US ---
EXAMINATION TYPE: US liver DATE OF EXAM: 02/20/2023 COMPARISON: Gallbladder ultrasound 02/01/2023, CT abdomen and pelvis 01/31/2023 CLINICAL INDICATION: Female, 42 years old with history of with gallbladder; pain TECHNIQUE: Multiple sonographic images of the right upper quadrant are obtained. FINDINGS: EXAM MEASUREMENTS: Liver Length: 17.5 cm Gallbladder Wall: .2 cm CBD: 1.1 cm Right Kidney: 9.2 x 3.8 x 5.1 cm DECK SUPERVISOR NOTES: Pancreas: Tail obscured by overlying bowel gas Liver: Increased attenuation Gallbladder: No stones seen Evidence for sonographic Parisi's sign: no CBD: wnl Right Kidney: No hydronephrosis or masses seen The visualized portions of the pancreas unremarkable. The tail is obscured by overlying bowel gas. Di ffusely hyperechoic appearance of the liver without focal lesion. Right kidney is unremarkable withou t evidence of hydronephrosis, solid mass, or nephrolithiasis. Gallbladder is unremarkable without ingrid dence of wall thickening, pericholecystic fluid, or cholelithiasis. Common bile duct is dilated measu ring up to 1.1 cm. IMPRESSION: 1. Stable common bile duct dilatation measuring up to 1.1 cm. MRCP is again recommended. 2. Hepatic steatosis.
[2023-02-20] MEDS: LITHIUM CARBONATE ER 450 MG TABLET.ER PO SCH ×2 (09:51→21:20)
[2023-02-20] MEDS: lamoTRIgine 100 MG TAB PO SCH ×2 (09:51→21:19)
[2023-02-20] MEDS: THIAMINE 100 MG TAB PO SCH (09:52)
[2023-02-20] MEDS: PANTOPRAZOLE 40 MG TABLET PO SCH (09:52)
[2023-02-20] MEDS: POTASSIUM CHLORIDE 10 MEQ in WATER FOR INJECTION 1 100ML.BAG IVPB SCH ×4 (09:58→17:58)
[2023-02-20] MEDS ORDERED: IOPAMIDOL CONTRAST (ORAL USE) VIAL PO PRN (11:37)
--- NOTE | 2023-02-20 13:16 | P.GSCN ---
History of Present Illness Consult date: 02/20/23 History of present illness: CHIEF COMPLAINT: Nausea and vomiting HISTORY OF PRESENT ILLNESS: This is a 42-year-old female in the hospital with complaints of nausea and vomiting. She does have a known history of alcohol abuse and alcohol induced seizures. She reports drinking 10 beers per day. She has been having vomiting which is been mostly bile in color. She denies any blood in her emesis. She has had EGDs in the past and reports finding showing what sounds like esophagitis. Patient is currently admitted with alcohol intoxication and on the [facility] protocol for alcohol withdrawal. patient's liver ultrasound had showed a stable common bile duct dilatation measuring up to 1.1 cm. And hepatic steatosis. Computed tomography scan of the abdomen is pending. Patient seen and examined with Dr. Calloway PAST MEDICAL HISTORY: See below PAST SURGICAL HISTORY: See below MEDICATIONS: See below ALLERGIES: See below SOCIAL HISTORY: No illicit drug use. REVIEW OF SYSTEMS: CONSTITUTIONAL: Denies fever or chills. HEENT: Denies blurred vision, vision changes, or eye pain. Denies hemoptysis CARDIOVASCULAR: Denies chest pain or pressure. RESPIRATORY: No shortness of breath. GASTROINTESTINAL: See HPI for pertinent findings HEMATOLOGIC: Denies bleeding disorders. GENITOURINARY: Denies any blood in urine or increased urinary frequency. SKIN: Denies pruitis. Denies rash. PHYSICAL EXAM: VITAL SIGNS: Reviewed GENERAL: Well-developed in no acute distress. HEENT: No sclera icterus. Extraocular movements grossly intact. Moist buccal mucosa. Head is atraumatic, normocephalic. No nasal drainage. ABDOMEN: Soft. Nondistended. Epigastric tenderness NEUROLOGIC: Alert and oriented. Cranial nerves II through XII grossly intact. LABORATORY DATA: WBC is 2.9 HgB 10.5 platelets 87 sodium 134 potassium 3.2 creatinine 0.56 Total bilirubin 0.9 AST has come down from 504-399 ALT 153-135 alk phos 151-125 Lipase 478 EtOH level elevated at 470 Urine drug screen positive for benzodiazepine IMAGING: liver ultrasound stable common bile duct dilatation measuring up to 1.1 cm. MRCP is again recommended. Hepatic steatosis. ASSESSMENT: 1. Epigastric abdominal pain with nausea and vomiting 2. Alcohol intoxication 3. Elevated liver enzymes likely due to alcohol 4. Hypokalemia 5. Thrombocytopenia PLAN: -Patient is scheduled for EGD tomorrow with Dr. Calloway -Clear liquid diet today -Nothing by mouth after midnight -Continue supportive care -Potassium being replaced -Continue alcohol withdrawal protocol -Follow up on computed tomography scan results Thank you for this consultation Physician Grinding Wheel Operator note has been reviewed by physician. Signing provider agrees with the documented findings, assessment, and plan of care. Past Medical History Past Medical History: No Reported History Additional Past Medical History / Comment(s): withdrawl etoh seizures, pt states she drinks 10 beers per day. History of Any Multi-Drug Resistant Organisms: None Reported Past Surgical History: Adenoidectomy Additional Past Surgical History / Comment(s): poor historian Past Anesthesia/Blood Transfusion Reactions: No Reported Reaction Smoking Status: Never smoker - Past Family History Father Family Medical History: Unable to Obtain Mother Family Medical History: Unable to Obtain Medications and Allergies Home Medications Medication Instructions Recorded Confirmed Type [place] Carbonate ER [Lithobid] 450 mg PO BID 10/16/20 02/19/23 History lamoTRIgine [LaMICtal] 150 mg PO BID 10/16/20 02/19/23 History Omeprazole 40 mg PO DAILY 04/20/21 02/19/23 History Escitalopram [Lexapro] 30 mg PO HS #60 tab 12/31/22 02/19/23 Rx Melatonin 10 mg PO HS tab 12/31/22 02/19/23 Rx Ondansetron Odt [Zofran Odt] 4 mg PO Q8HR PRN #10 tab 12/31/22 02/19/23 Rx Thiamine [Vitamin B-1] 100 mg PO DAILY 30 Days #30 tab 12/31/22 02/19/23 Rx Allergies Allergy/AdvReac Type Severity Reaction Status Date / Time amoxicillin Allergy Rash/Hives Verified 02/19/23 14:33 Surgical - Exam Vital Signs Temp Pulse Resp BP Pulse Ox 97.8 F 96 20 145/91 93 L 02/19/23 11:59 02/19/23 11:59 02/19/23 11:59 02/19/23 11:59 02/19/23 11:59 Results - Labs 02/20/23 05:34 02/20/23 05:34 Abnormal Lab Results - Last 24 Hours (Table) 02/19/23 02/19/23 02/19/23 Range/Units 12:20 12:20 18:42 WBC 3.5 L (3.8-10.6) k/uL RBC (3.80-5.40) m/uL Hgb (11.4-16.0) gm/dL MCV (80.0-100.0) fL RDW 17.2 H (11.5-15.5) % Plt Count 148 L D (150-450) k/uL Sodium (137-145) mmol/L Potassium 3.3 L (3.5-5.1) mmol/L BUN 4 L (7-17) mg/dL Creatinine 0.49 L (0.52-1.04) mg/dL Glucose (74-99) mg/dL Calcium 8.3 L (8.4-10.2) mg/dL Magnesium 1.5 L (1.6-2.3) mg/dL AST 504 H (14-36) U/L ALT 153 H (4-34) U/L Alkaline Phosphatase 151 H (38-126) U/L Total Protein (6.3-8.2) g/dL Albumin (3.5-5.0) g/dL Amylase 136 H (30-110) U/L Lipase 478 H (23-300) U/L U Benzodiazepines Scrn Detected H (NotDetected) Serum Alcohol 470 H* mg/dL 02/20/23 02/20/23 Range/Units 05:34 05:34 WBC 2.9 L (3.8-10.6) k/uL RBC 3.37 L (3.80-5.40) m/uL Hgb 10.5 L (11.4-16.0) gm/dL MCV 100.6 H (80.0-100.0) fL RDW 16.9 H (11.5-15.5) % Plt Count 87 L (150-450) k/uL Sodium 134 L (137-145) mmol/L Potassium 3.2 L (3.5-5.1) mmol/L BUN 3 L (7-17) mg/dL Creatinine (0.52-1.04) mg/dL Glucose 60 L (74-99) mg/dL Calcium 7.6 L (8.4-10.2) mg/dL Magnesium (1.6-2.3) mg/dL AST 399 H (14-36) U/L ALT 135 H (4-34) U/L Alkaline Phosphatase (38-126) U/L Total Protein 5.9 L (6.3-8.2) g/dL Albumin 3.3 L (3.5-5.0) g/dL Amylase (30-110) U/L Lipase (23-300) U/L U Benzodiazepines Scrn (NotDetected) Serum Alcohol mg/dL Diabetes panel 02/19/23 02/20/23 Range/Units 12:20 05:34 Sodium 143 134 L (137-145) mmol/L Potassium 3.3 L 3.2 L (3.5-5.1) mmol/L Chloride 102 100 (98-107) mmol/L Carbon Dioxide 26 25 (22-30) mmol/L BUN 4 L 3 L (7-17) mg/dL Creatinine 0.49 L 0.56 (0.52-1.04) mg/dL Glucose 98 60 L (74-99) mg/dL Calcium 8.3 L 7.6 L (8.4-10.2) mg/dL AST 504 H 399 H (14-36) U/L ALT 153 H 135 H (4-34) U/L Alkaline Phosphatase 151 H 125 (38-126) U/L Total Protein 7.3 5.9 L (6.3-8.2) g/dL Albumin 4.4 3.3 L (3.5-5.0) g/dL Calcium panel 02/19/23 02/20/23 Range/Units 12:20 05:34 Calcium 8.3 L 7.6 L (8.4-10.2) mg/dL Phosphorus 3.4 (2.5-4.5) mg/dL Albumin 4.4 3.3 L (3.5-5.0) g/dL Pituitary panel 02/19/23 02/20/23 Range/Units 12:20 05:34 Sodium 143 134 L (137-145) mmol/L Potassium 3.3 L 3.2 L (3.5-5.1) mmol/L Chloride 102 100 (98-107) mmol/L Carbon Dioxide 26 25 (22-30) mmol/L BUN 4 L 3 L (7-17) mg/dL Creatinine 0.49 L 0.56 (0.52-1.04) mg/dL Glucose 98 60 L (74-99) mg/dL Calcium 8.3 L 7.6 L (8.4-10.2) mg/dL Adrenal panel 02/19/23 02/20/23 Range/Units 12:20 05:34 Sodium 143 134 L (137-145) mmol/L Potassium 3.3 L 3.2 L (3.5-5.1) mmol/L Chloride 102 100 (98-107) mmol/L Carbon Dioxide 26 25 (22-30) mmol/L BUN 4 L 3 L (7-17) mg/dL Creatinine 0.49 L 0.56 (0.52-1.04) mg/dL Glucose 98 60 L (74-99) mg/dL Calcium 8.3 L 7.6 L (8.4-10.2) mg/dL Total Bilirubin 0.7 0.9 (0.2-1.3) mg/dL AST 504 H 399 H (14-36) U/L ALT 153 H 135 H (4-34) U/L Alkaline Phosphatase 151 H 125 (38-126) U/L Total Protein 7.3 5.9 L (6.3-8.2) g/dL Albumin 4.4 3.3 L (3.5-5.0) g/dL
--- NOTE | 2023-02-20 14:35 | P.PN ---
Subjective Progress Note Date: 02/20/23 Patient is a 42-year-old female with PMH of alcohol abuse, history of alcohol induced seizures, bipolar disorder presents to the ED for nausea and vomiting. Patient reports drinking daily for many years. Patient states that she drinks 10 beers and shots of vodka on a daily basis. She reports a history of alcohol induced seizures. She reports epigastric discomfort and multiple episodes of NBNB vomiting which prompted her to come to the ED. She denies any headache, lower extremity edema, fever or chills, cough, chest pain, shortness of breath, palpitations, changes in urination or bowel habits. No changes in appetite or weight. She denies any dizziness, numbness/weakness/tingling of the extre mities. In the ED patient was noted to be tachycardic with heart rate of 96. Vital signs were otherwise stable. CBC showed WBC count of 3.5 and platelet count 148. CMP showed potassium of 3.3, BUN of 4, creatinine of 0.49, calcium of 8.3, AST of 504, ALT 153, alkaline phosphatase 151. Magnesium is 1.5. Amylase was 136, lipase 478. Serum alcohol 470. Patient is admitted for alcohol intoxication and epigastric pain. 02/20 Patient was seen and examined this morning. She is actively vomiting b illious vomitus. She continues to reports epigastric pain that is throbbing in nature, 04/22 in severity. She reports frequent watery bowel movements, 4-5 episodes overnight. She reports EGD in the past which showed esophagitis. General: non toxic, moderate distress, appears at stated age Derm: warm, dry Head: atraumatic, normocephalic, symmetric Eyes: EOMI, no lid lag, anicteric sclera Cardiovascular: Tachycardic, no murmur Lungs: CTA bilateral, no rhonchi, no rales , no accessory muscle use Abdominal: soft, mild epigastric TTP without rebound, no guarding, no appreciable organomegaly Ext: no gross muscle atrophy, no edema, no contractures Neuro: no focal neuro deficits Psych: Alert, oriented, appropriate affect Alcohol intoxication with impending withdrawal Epigastric pain with nausea and vomiting likely related to gastritis Diarrhea with history of colitis Hypokalemia Hypomagnesemia Leukopenia Thrombocytopenia Transaminitis Chronic conditions: history of alcohol induced seizures, bipolar disorder Based on my assessment of this patient, this patient meets a high complexity level of care. Patient has an acute diagnosis of alcohol intoxication with impending withdrawal that poses a threat to life or bodily function. She is also complaining of epigastric pain with N/V. Patient will be placed on CIWA protocol and given Ativan IV as needed. She has recieved 5 mg of Ativan during this hospitalization. Potassium chloride 40 mEq IV ordered for hypokalemia. Liver US shows CBD dilation of 1.[address] AP 02/01 shows diffuse pancolitis from cecum to rectum. Stool culture, C.diff and stool calprotectin ordered. Repeat CT AP ordered. Surgery consulted, plans for EGD tomorrow. Patient is not septic at this time, could possibly be started on antibiotics depending results of the CT AP. Zofran 4 mg IV every 8 hours as needed for nausea and vomiting. Clear liquid diet and advance. Continue normal sinus 75 mL per hour. Protonix 40 mg PO daily for gastritis. Leukopenia, thrombocytopenia and transaminitis likely related to chronic alcohol abuse. Patient names her mother decision-maker if she can't make decisions for herself. Patient would like to be full code. SCDs for DVT prophylaxis. I have reviewed the following coding consultant notes: None. I have reviewed the results of the following tests: Liver US shows CBD dilation of 1.[address] AP 02/01 shows diffuse pancolitis from cecum to rectum. CBC shows WBC count of 2.9, Hg 10.5 with MCV of 100.6 and Plt 87. CMP shows Na 134, K 3.2, BUN 3, glucose 60, Ca 7.6, AST 399, ALT 135. I have ordered the following tests: Stool culture, C.diff and stool calprotectin ordered. Repeat CT AP ordered. I have discussed the care of this patient with the following independent hist orian: None. I have independently interpreted the following test below: None. I have discussed the management of this patient with the following physician: The case was discussed with the Keisha HOFFMANN, plans for EGD tomorrow with Dr. Calloway. This patient has a high risk of morbidity due to the following reasons: Patient is currently on Ativan IV that requires intensive monitoring for toxicity. Patient requires parenteral controlled substances. Objective - Vital Signs Vital signs: Vital Signs Temp 99.1 F 02/20/23 13:00 Pulse 80 02/20/23 13:00 Resp 16 02/20/23 13:00 BP 139/83 02/20/23 13:00 Pulse Ox 99 02/20/23 13:00 FiO2 Intake & Output 02/19/23 02/20/23 02/20/23 18:59 06:59 18:59 Output Total 30 Balance -30 Weight 58.967 kg Output: Emesis 30 Other: Voiding Method Toilet Toilet # Voids 2 4 1 # Bowel Movements 4 1 - Labs CBC & Chem 7: 02/20/23 05:34 02/20/23 05:34 Labs: Abnormal Lab Results - Last 24 Hours (Table) 02/19/23 02/20/23 02/20/23 Range/Units 18:42 05:34 05:34 WBC 2.9 L (3.8-10.6) k/uL RBC 3.37 L (3.80-5.40) m/uL Hgb 10.5 L (11.4-16.0) gm/dL MCV 100.6 H (80.0-100.0) fL RDW 16.9 H (11.5-15.5) % Plt Count 87 L (150-450) k/uL Sodium 134 L (137-145) mmol/L Potassium 3.2 L (3.5-5.1) mmol/L BUN 3 L (7-17) mg/dL Glucose 60 L (74-99) mg/dL Calcium 7.6 L (8.4-10.2) mg/dL AST 399 H (14-36) U/L ALT 135 H (4-34) U/L Total Protein 5.9 L (6.3-8.2) g/dL Albumin 3.3 L (3.5-5.0) g/dL U Benzodiazepines Scrn Detected H (NotDetected)
--- NOTE | 2023-02-20 16:34 | CT ---
EXAMINATION TYPE: CT abdomen pelvis w con DATE OF EXAM: 02/20/2023 COMPARISON: 01/31/2023 INDICATION: N/V, pain. hx colitis DLP: 815 mGycm, Automated exposure control for dose reduction was used. CONTRAST: 100ML mL of Isovue 300. Study performed with Oral Contrast TECHNIQUE: Axial images were obtained from above the diaphragm to the pubic rami in the axial plane a t 5 mm thick sections. Reconstructed images are reviewed on the computer in the coronal plane. FINDINGS: Limited CT sections are obtained the lung bases. The lung bases are clear. CT ABDOMEN: Liver: Moderate fatty infiltration through the liver. Spleen: Normal Pancreas: Normal Adrenal glands: The adrenal glands are normal. Gallbladder: Normal Kidneys: No masses are evident. No hydronephrosis is present. No cysts are present. Delayed images were obtained through the kidneys, small cortical renal cyst is identified in the mid posterior late ral left kidney. Aorta: Vascular calcification is within the aorta. Inferior vena cava: Normal. CT PELVIS: Loops of bowel within the abdomen and pelvis are normal. A couple of scattered diverticuli are presen t without evidence of acute diverticulitis. The study is without oral contrast limiting bowel eval uation. Appendix: Normal as visualized. Urinary bladder: Unremarkable Genitourinary structures: IUD is within the uterus. There is a 2.4 cm cyst on the left ovary. Right a dnexa appears normal. Osseous structures: No suspicious lytic or sclerotic lesions. IMPRESSIONS: 1. 2.4 cm left ovarian cyst. 2. Moderate fatty infiltration through the liver. 3. No suspicious changes to suggest acute colitis. Follow-up can be performed as clinically indicated .
[2023-02-20] MEDS: ESCITALOPRAM 10 MG TAB PO SCH (21:20)
[2023-02-21 07:51] LABS: Anisocytosis Slight; Basophils % (A) 1 %; Eosinophils # (A) 0.2 k/uL (0-0.7); Eosinophils % (A) 6 %; HCT 38.4 % (34.0-46.0); Hypochromasia Slight; Lymphocytes # (A) 0.6 k/uL (1.0-4.8); Lymphocytes % (A) 20 %; MCH 31.5 pg (25.0-35.0); MCHC 31.3 g/dL (31.0-37.0); MCV 100.4 fL (80.0-100.0); Macrocytosis Slight; Mean Platelet Volume 9.4; Monocytes # (A) 0.1 k/uL (0-1.0); Monocytes % (A) 5 %; Neutrophils # (A) 1.9 k/uL (1.3-7.7); Neutrophils % (A) 68 %; RBC 3.82 m/uL (3.80-5.40); RDW 16.3 % (11.5-15.5); WBC 2.8 k/uL (3.8-10.6)
[2023-02-21 07:58] LABS: Platelet Count 64 k/uL (150-450)
[2023-02-21 08:00] LABS: ALT 141 U/L (4-34); AST 338 U/L (14-36); African American GFR (CKD) >90 (>60 ml/min/1.73 sqM); Albumin 3.8 g/dL (3.5-5.0); Albumin/Globulin Ratio 1.3; Alkaline Phosphatase 138 U/L (38-126); Anion Gap 18 mmol/L; Blood Urea Nitrogen <2 mg/dL (7-17); Calcium 8.4 mg/dL (8.4-10.2); Carbon Dioxide 18 mmol/L (22-30); Chloride 100 mmol/L (98-107); Globulin 2.9 g/dL; Glucose 58 mg/dL (74-99); Non-African American GFR(CKD) >90 (>60 ml/min/1.73 sqM); Sodium 136 mmol/L (137-145); Total Bilirubin 0.9 mg/dL (0.2-1.3); Total Protein 6.7 g/dL (6.3-8.2)
[2023-02-21 08:39] LABS: Magnesium 1.7 mg/dL (1.6-2.3)
[2023-02-21 08:44] LABS: HCG,Qualitative Serum Not Detected
[2023-02-21] MEDS: POTASSIUM CHLORIDE ER 20 MEQ TAB.ER PO SCH ×2 (09:29→12:18)
[2023-02-21] MEDS: VANCOMYCIN 125 MG CAPSULE PO SCH ×4 (09:29→20:56)
[2023-02-21] MEDS: LITHIUM CARBONATE ER 450 MG TABLET.ER PO SCH ×2 (09:29→20:56)
[2023-02-21] MEDS: PANTOPRAZOLE 40 MG TABLET PO SCH (09:30)
[2023-02-21] MEDS: THIAMINE 100 MG TAB PO SCH (09:30)
[2023-02-21] MEDS: lamoTRIgine 100 MG TAB PO SCH ×2 (09:30→20:54)
[2023-02-21] MEDS ORDERED: LIDOCAINE 2% INJ 20 MG/ML (2 ML VIAL) ONE (12:59)
[2023-02-21] MEDS ORDERED: PROPOFOL 10 MG/ML 20 ML VIAL IV ONE (12:59)
[2023-02-21] MEDS ORDERED: SODIUM CHLORIDE 0.9% 1,000 ML IV ONE (13:05)
--- NOTE | 2023-02-21 13:14 | P.OP ---
Date of Procedure: 02/21/23 Preoperative Diagnosis: Nausea Vomiting Postoperative Diagnosis: Antral gastritis Small sliding hiatal hernia Mild esophagitis Procedure(s) Performed: EGD Anesthesia: MAC Surgeon: Uzair Calloway Pathology: other (Antrum, esophagus) Condition: stable Disposition: PACU Description of Procedure: The patient's placed on the endoscopy table in the lateral position. She received IV sedation. The gastro-/oropharynx passed in the esophagus and stomach. Scope was then placed through the pylorus. The first and second portion of the duodenum appeared normal. Scope was then brought back the antrum this. Mildly inflamed. A biopsies performed. Scope was then retroflexed and the remainder the stomach appeared normal. The GE junction was at 38 cm. The patient had a small sliding hiatal hernia. The distal esophagus appeared mildly inflamed a biopsies performed. The proximal esophagus appeared normal. Scope withdrawn for patient.
[2023-02-21] MEDS: ONDANSETRON 4 MG/2 ML VIAL IVP PRN (13:50)
--- NOTE | 2023-02-21 15:08 | P.PN ---
Subjective Progress Note Date: 02/21/23 Patient is a 42-year-old female with PMH of alcohol abuse, history of alcohol induced seizures, bipolar disorder presents to the ED for nausea and vomiting. Patient reports drinking daily for many years. Patient states that she drinks 10 beers and shots of vodka on a daily basis. She reports a history of alcohol induced seizures. She reports epigastric discomfort and multiple episodes of NBNB vomiting which prompted her to come to the ED. She denies any headache, lower extremity edema, fever or chills, cough, chest pain, shortness of breath, palpitations, changes in urination or bowel habits. No changes in appetite or weight. She denies any dizziness, numbness/weakness/tingling of the extre mities. In the ED patient was noted to be tachycardic with heart rate of 96. Vital signs were otherwise stable. CBC showed WBC count of 3.5 and platelet count 148. CMP showed potassium of 3.3, BUN of 4, creatinine of 0.49, calcium of 8.3, AST of 504, ALT 153, alkaline phosphatase 151. Magnesium is 1.5. Amylase was 136, lipase 478. Serum alcohol 470. Patient is admitted for alcohol intoxication and epigastric pain. 02/20 Patient was seen and examined this morning. She is actively vomiting b illious vomitus. She continues to reports epigastric pain that is throbbing in nature, 04/22 in severity. She reports frequent watery bowel movements, 4-5 episodes overnight. She reports EGD in the past which showed esophagitis. 02/21 Patient was seen and examined. She underwent EGD today which showed gastritis and esophagitis. She is a 4 watery bowel movements since her EGD. C. diff is positive. Patient reports feeling to nauseous to take oral vancomycin. General: non toxic, moderate distress, appears at stated age Derm: warm, dry Head: atraumatic, normocephalic, symmetric Eyes: EOMI, no lid lag, anicteric sclera Cardiovascular: Tachycardic, no murmur Lungs: CTA bilateral, no rhonchi, no rales , no accessory muscle use Abdominal: soft, mild epigastric TTP without rebound, no guarding, no appreciable organomegaly Ext: no gross muscle atrophy, no edema, no contractures Neuro: no focal neuro deficits Psych: Alert, oriented, appropriate affect Alcohol intoxication with impending withdrawal Epigastric pain with nausea and vomiting likely related to gastritis C. diff colitis Hypoglycemia Hypokalemia Hypomagnesemia Leukopenia Thrombocytopenia Transaminitis Chronic conditions: history of alcohol induced seizures, bipolar disorder Based on my assessment of this patient, this patient meets a high complexity level of care. Patient has an acute diagnosis of alcohol intoxication with impending withdrawal that poses a threat to life or bodily function. She is also complaining of epigastric pain with N/V. Patient will be placed on CIWA protocol and given Ativan IV as needed. She has received 1 mg of Ativan over the past 24 hours. Potassium chloride 40 mEq IV and 40 mEq by mouth ordered for potassium of 3. Liver US shows CBD dilation of 1.[address] AP 02/01 shows diffuse pancolitis from cecum to rectum. C. diff positive. Repeat CT AP shows no signs of colitis with moderate fatty infiltration throughout the liver and 2.4 cm left ovarian cyst. Surgery consulted, underwent EGD which showed gastritis and esophagitis. Pat ient will be started on vancomycin 125 mg by mouth daily for the next 10 days. Zofran 4 mg IV every 8 hours as needed for nausea and vomiting. Clear liquid diet and advance. Hypoglycemia likely related to poor appetite. Start D5 normal saline at 50 mL per hour. Protonix 40 mg PO daily for gastritis. Leukopenia, thrombocytopenia and transaminitis likely related to chronic alcohol abuse. Patient is unable to be discharged at this time as she is not able to tolerate oral intake. This has left to hypoglycemic episodes. She has been started on D5NS. She is pending clinical improvement. Anticipate DC in 1-2 days. Patient names her mother decision-maker if she can't make decisions for herself. Patient would like to be full code. SCDs for DVT prophylaxis. I have reviewed the following technical services consultant notes: None. I have reviewed the results of the following tests: C. diff positive. Repeat CT AP shows no signs of colitis with moderate fatty infiltration throughout the liver and 2.4 cm left ovarian cyst. CBC shows WBC count of 2.8 and MCV of 100.4 with platelet count of 64. CMP shows sodium of 136, potassium of 3, bicarbonate 18, glucose 58, AST of 338, ALT of 141 and alkaline phosphatase of 138. Stool for occult blood negative. I have ordered the following tests: CBC and BMP ordered for tomorrow morning. I have discussed the care of this patient with the following independent historian: None. I have independently interpreted the following test below: None. I have discussed the management of this patient with the following physician: None. This patient has a high risk of morbidity due to the following reasons: Patient is currently on Ativan IV that requires intensive monitoring for toxicity. Patient requires parenteral controlled substances. Objective - Vital Signs Vital signs: Vital Signs Temp 98.1 F 02/21/23 12:26 Pulse 80 02/21/23 12:26 Resp 18 02/21/23 12:26 BP 138/86 02/21/23 12:26 Pulse Ox 96 02/21/23 12:26 FiO2 Intake & Output 02/20/23 02/21/23 02/21/23 18:59 06:59 18:59 Intake Total 100 Balance 100 Intake: IV 100 Other: Voiding Method Toilet Toilet # Voids 1 1 2 # Bowel Movements 1 1 6 - Labs CBC & Chem 7: 02/21/23 05:59 02/21/23 05:59 Labs: Abnormal Lab Results - Last 24 Hours (Table) 02/20/23 02/21/23 02/21/23 Range/Units 14:31 05:59 05:59 WBC 2.8 L (3.8-10.6) k/uL MCV 100.4 H (80.0-100.0) fL RDW 16.3 H (11.5-15.5) % Plt Count 64 L (150-450) k/uL Lymphocytes # 0.6 L (1.0-4.8) k/uL Sodium 136 L (137-145) mmol/L Potassium 3.0 L (3.5-5.1) mmol/L Carbon Dioxide 18 L (22-30) mmol/L BUN <2 L (7-17) mg/dL Creatinine 0.48 L (0.52-1.04) mg/dL Glucose 58 L (74-99) mg/dL AST 338 H (14-36) U/L ALT 141 H (4-34) U/L Alkaline Phosphatase 138 H (38-126) U/L C. difficile (EIA) Intrp Positive A (Negative) Microbiology - Last 24 Hours (Table) 02/20/23 14:31 Stool Culture - Preliminary Stool
[2023-02-21] MEDS: DEXTROSE 5%-0.9% NACL 1,000 ML IV SCH (16:01)
[2023-02-21] MEDS: ESCITALOPRAM 10 MG TAB PO SCH (20:55)
[2023-02-22 06:50] LABS: African American GFR (CKD) >90 (>60 ml/min/1.73 sqM); Anion Gap 17 mmol/L; Blood Urea Nitrogen <2 mg/dL (7-17); Carbon Dioxide 17 mmol/L (22-30); Chloride 100 mmol/L (98-107); Glucose 100 mg/dL (74-99); Non-African American GFR(CKD) >90 (>60 ml/min/1.73 sqM); Potassium 3.2 mmol/L (3.5-5.1); Sodium 134 mmol/L (137-145)
[2023-02-22] MEDS ORDERED: LACTATED RINGERS 1,000 ML IV SCH (07:15)
[2023-02-22 07:42] VITALS: BP 132/80; PULSE 91; RESP 16; TEMP 98
[2023-02-22] MEDS: LITHIUM CARBONATE ER 450 MG TABLET.ER PO SCH (08:49)
[2023-02-22] MEDS: lamoTRIgine 100 MG TAB PO SCH (08:49)
[2023-02-22] MEDS: VANCOMYCIN 125 MG CAPSULE PO SCH ×2 (08:49→12:22)
[2023-02-22] MEDS: PANTOPRAZOLE 40 MG TABLET PO SCH (08:50)
[2023-02-22] MEDS: THIAMINE 100 MG TAB PO SCH (08:50)
[2023-02-22] MEDS: ONDANSETRON 4 MG/2 ML VIAL IVP PRN (08:59)
[2023-02-22] MEDS ORDERED: POTASSIUM CHLORIDE 10 MEQ in WATER FOR INJECTION 1 100ML.BAG IVPB SCH (10:00)
[2023-02-22] MEDS: POTASSIUM CHLORIDE ER 20 MEQ TAB.ER PO SCH ×2 (10:22→12:23)
[2023-02-22] MEDS: DEXTROSE 5%-0.9% NACL 1,000 ML IV SCH (12:21)
--- NOTE | 2023-02-22 12:26 | P.DS ---
Providers Date of admission: 02/19/23 14:09 Expected date of discharge: 02/22/23 Attending physician: Justo Long MD Consults: 02/20/23 12:08 Consult Physician Routine Consulting Provider: Uzair Calloway Consult Reason/Comments: N/V, Abd pain, diarrhea, colitis? Do you want consulting provider notified?: Yes Primary care physician: Stated None Hospital Course: Patient is a 42-year-old female with PMH of alcohol abuse, history of alcohol induced seizures, bipolar disorder presents to the ED for nausea and vomiting. Patient reports drinking daily for many years. Patient states that she drinks 10 beers and shots of vodka on a daily basis. She reports a history of alcohol induced seizures. She reports epigastric discomfort and multiple episodes of NBNB vomiting which prompted her to come to the ED. She denies any headache, lower extremity edema, fever or chills, cough, chest pain, shortness of breath, palpitations, changes in urination or bowel habits. No changes in appetite or weight. She denies any dizziness, numbness/weakness/tingling of the extremities. In the ED patient was noted to be tachycardic with heart rate of 96. Vital signs were otherwise stable. CBC showed WBC count of 3.5 and platelet count 148. CMP showed potassium of 3.3, BUN of 4, creatinine of 0.49, calcium of 8.3, AST of 504, ALT 153, alkaline phosphatase 151. Magnesium is 1.5. Amylase was 136, lipase 478. Serum alcohol 470. Patient is admitted for alcohol intoxication and epigastric pain. 02/20 Patient was seen and examined this morning. She is actively vomiting bill ious vomitus. She continues to reports epigastric pain that is throbbing in nature, 04/22 in severity. She reports frequent watery bowel movements, 4-5 episodes overnight. She reports EGD in the past which showed esophagitis. 02/21 Patient was seen and examined. She underwent EGD today which showed gastritis and esophagitis. She is a 4 watery bowel movements since her EGD. C. diff is positive. Patient reports feeling to nauseous to take oral vancomycin. 02/22 Patient was seen and examined. No episodes of diarrhea today. No more nausea and vomiting. Feeling better than yesterday. Potassium of 3.2 and bicarb of 17. Refusing IV potassium. Patient will be discharged home on Vancomycin by mouth for the next 10 days along with Protonix. She is advised to follow up with her PCP within 1-2 days of discharge. She is advised to follow up with Dr. Calloway within 1 week of discharge. Pertinent studies include CTAP. Pertinent procedures include EGD. General: non toxic, moderate distress, appears at stated age Derm: warm, dry Head: atraumatic, normocephalic, symmetric Eyes: EOMI, no lid lag, anicteric sclera Cardiovascular: Tachycardic, no murmur Lungs: CTA bilateral, no rhonchi, no rales , no accessory muscle use Ext: no gross muscle atrophy, no edema, no contractures Neuro: no focal neuro deficits Psych: Alert, oriented, appropriate affect Discharge Diagnosis: Alcohol intoxication Gastritis C. diff colitis Hypokalemia Leukopenia Thrombocytopenia Transaminitis Resolved: Hypoglycemia, HypoMg Chronic conditions: history of alcohol induced seizures, bipolar disorder This complex discharge took 35 minutes to complete. Patient Condition at Discharge: Stable Plan - Discharge Summary New Discharge Prescriptions: New RX: Pantoprazole [Protonix] 40 mg PO DAILY #30 tab RX: Vancomycin 125 mg PO QID #40 cap Continue RX: [place] Carbonate ER [Lithobid] 450 mg PO BID RX: lamoTRIgine [LaMICtal] 150 mg PO BID RX: Escitalopram [Lexapro] 30 mg PO HS #60 tab RX: Melatonin 10 mg PO HS tab RX: Thiamine [Vitamin B-1] 100 mg PO DAILY 30 Days #30 tab RX: Ondansetron Odt [Zofran ODT] 4 mg PO Q8HR PRN #10 tab PRN Reason: Nausea Discontinued RX: Omeprazole 40 mg PO DAILY Discharge Medication List RX: [place] Carbonate ER [Lithobid] 450 mg PO BID 10/16/20 [History] RX: lamoTRIgine [LaMICtal] 150 mg PO BID 10/16/20 [History] RX: Escitalopram [Lexapro] 30 mg PO HS #60 tab 12/31/22 [Rx] RX: Melatonin 10 mg PO HS tab 12/31/22 [Rx] RX: Thiamine [Vitamin B-1] 100 mg PO DAILY 30 Days #30 tab 12/31/22 [Rx] RX: Ondansetron Odt [Zofran ODT] 4 mg PO Q8HR PRN #10 tab 02/21/23 [Rx] RX: Pantoprazole [Protonix] 40 mg PO DAILY #30 tab 02/21/23 [Rx] RX: Vancomycin 125 mg PO QID #40 cap 02/21/23 [Rx] Follow up Appointment(s)/Referral(s): None,Stated [Primary Care Provider] - 1-2 days Uzair Calloway MD [STAFF PHYSICIAN] - 03/07/23 1:30 pm Patient Instructions/Handouts: Ondansetron (By mouth), Vancomycin (By mouth), Pantoprazole (By mouth), C. Diff (Clostridioides Difficile) Infection (DC) Activity/Diet/Wound Care/Special Instructions: Diet: Clear liquid diet and advance as tolerated. Take Vancomycin 1 tablet by mouth 4 times a day for 10 days. Take Protonix 1 tablet by mouth daily. Refrain from drinking alcohol. Discharge/Stand Alone Forms: AA Meetings [facility], Outpatient Counseling Discharge Disposition: HOME SELF-CARE
--- NOTE | 2023-02-22 14:03 | P.PN ---
Progress Note - Text Progress Note Date: 02/22/23 Patient nereida stable. Her EGD was discussed with her. On exam vital signs are stable. Abdomen is soft. Patient stable for discharge from surgical standpoint.
== END 2023-02-22 16:05 | disposition home or self-care (01) ==
LOC: EC 11:54 → EEVIPCON 14:09 → 6NMEDSUR 14:09 → 5NMEDONC 15:42
PROVIDERS: ADMIT Student in an Organized Health Care Education/Training Program; ATTEND Student in an Organized Health Care Education/Training Program
DX: F10.129 Alcohol abuse with intoxication, unspecified (principal); A04.72 Enterocolitis due to Clostridium difficile, not specified as recurrent; K29.70 Gastritis, unspecified, without bleeding; E87.6 Hypokalemia; E83.42 Hypomagnesemia; F10.139 Alcohol abuse with withdrawal, unspecified; K76.0 Fatty (change of) liver, not elsewhere classified; K21.00 Gastro-esophageal reflux disease with esophagitis, without bleeding; K44.9 Diaphragmatic hernia without obstruction or gangrene; K83.8 Other specified diseases of biliary tract; Y90.8 Blood alcohol level of 240 mg/100 ml or more; D69.6 Thrombocytopenia, unspecified; E16.2 Hypoglycemia, unspecified; N83.202 Unspecified ovarian cyst, left side; R00.0 Tachycardia, unspecified; F31.9 Bipolar disorder, unspecified; F41.9 Anxiety disorder, unspecified; Z79.899 Other long term (current) drug therapy; Z88.0 Allergy status to penicillin; Z98.890 Other specified postprocedural states
CPT/HCPCS: 96376 ×2; 96361 ×3; 96366 ×3; 96375 ×2; 82075; 96368; 96365; 96372; 99285; 36415; 88305; 80053 ×3; 80048; 82150; 83690; 83735 ×2; 84100; 85025 ×2; 85027; 85610; 82272; 84703; 87324; 80306; 87045; 87046; 76705; 74177; 43239; G0378 ×5; G0480; J2060 ×2; J3411; J3480 ×2; J2405 ×4; J3475; J2704; C9113; Q9967; J2001; 80320